=== PATIENT | male | born 1945 | race Caucasian/White ===

== ENCOUNTER 2017-03-28 15:42 | Inpatient (IN) | payer BC, MEDICARE ==
[2017-03-28] MEDS ORDERED: Pantoprazole 40 MG VIAL ONE (16:09)
[2017-03-28] MEDS ORDERED: Morphine 2 MG/ML SYRINGE ONE (16:09)
[2017-03-28] MEDS ORDERED: Ondansetron HCl/PF 4 MG/2 ML Vial ONE (16:09)
[2017-03-28 16:49] LABS: #Eosinphils 0.1 thou/uL (0.0-0.7); #Lymphocytes 0.7 thou/uL (1.20-3.40); #Monocytes 0.8 thou/uL (0.11-0.59); #Neutrophils 5.8 thou/uL (1.40-6.50); %Eosinophils 1.4 % (0.0-10.0); %Lymphocytes 9.7 % (21.0-51.0); %Monocytes 10.2 % (0.0-10.0); Hematocrit 38.6 % (42.0-52.0); Mean Platelet Volume 9.8 fL (7.4-10.4); Red Blood Cell (RBC) Count 4.58 mill/uL (4.70-6.10); White Blood Cell (WBC) Count 7.4 thou/uL (4.8-10.8)
--- NOTE | 2017-03-28 17:08 | RAD ---
SINGLE VIEW OF THE CHEST: COMPARISON: 02/13/17. HISTORY: Nausea and vomiting. FINDINGS: A single view of the chest shows an enlarged cardiomediastinal silhouette. The patient is status po st sternotomy. There is no evidence of consolidation, mass, or pleural effusion. IMPRESSION: Cardiomegaly without evidence of acute cardiopulmonary disease. POS: [facility]
[2017-03-28 17:28] LABS: ALT (SGPT) 11 U/L (8-55); AST (SGOT) 13 U/L (5-34); Alkaline Phosphatase 71 U/L (40-150); Anion Gap 18 mmol/L (10-20); BUN (Urea Nitrogen) 13 mg/dL (8.4-25.7); Bilirubin, Total 0.8 mg/dL (0.2-1.2); CK (CPK) 115 U/L (30-200); Calc. Creatinine Clearance 0 mL/min (70-130); Calcium 8.4 mg/dL (7.8-10.44); Carbon Dioxide 23 mmol/L (23-31); Chloride 101 mmol/L (98-107); Estimated GFR-MDRD 59; Globulin 2.6 g/dL (2.4-3.5); Lipase 26 U/L (8-78); Protein, Total 6.2 g/dL (5.8-8.1)
[2017-03-28 17:30] LABS: Troponin I 0.034 ng/mL (< 0.028)
[2017-03-28] MEDS ORDERED: Nitroglycerin 2% Ointment 1 INCH/1 GM Packet ONE (17:58)
[2017-03-28] MEDS ORDERED: Acetaminophen 325 MG TAB ONE (18:42)
[2017-03-28 19:29] LABS: Bilirubin Large (Negative); Blood, Urine Trace (Negative); Glucose, Urine (Dipstick) Negative (Negative); Ketone, Urine 40 mg/dL (Negative); Nitrite Positive (Negative); Protein, Urine (Dipstick) 100 mg/dL (Neg-Trace)
[2017-03-28 19:31] LABS: Bacteria/HPF 4+ HPF (None Seen); Squamous Epithelial 0-3 HPF (0-3)
[2017-03-28 19:40] LABS: Hyaline Casts/LPF NONE SEEN LPF (0-3 Hyaline)
[2017-03-28] MEDS ORDERED: Dextrose 5% in Water 1,000 ML IV PRN (20:13)
[2017-03-28] MEDS ORDERED: Mometasone/Formoterol 120 PUFF INHALER INH PRN (20:13)
[2017-03-28] MEDS ORDERED: Calcium Carbonate 500 MG ChewTAB PO PRN (20:13)
[2017-03-28] MEDS ORDERED: Dextrose 50% Abboject 50 ML SYRINGE SLOW IVP PRN (20:13)
[2017-03-28] MEDS ORDERED: Bisacodyl 10 MG SUPP PR PRN (20:13)
[2017-03-28 20:15] LABS: Troponin I 0.054 ng/mL (< 0.028)
[2017-03-28 20:58] LABS: Digoxin 0.35 ng/mL (0.8-2.0)
[2017-03-28] MEDS: Sodium Chloride 0.9% 1,000 ML IV SCH (21:30)
[2017-03-28] MEDS: Famotidine/PF 20 mg/2ml Vial SLOW IVP SCH (21:32)
[2017-03-28] MEDS: Atorvastatin Calcium 10 MG TAB PO SCH (21:59)
--- NOTE | 2017-03-28 22:28 | ULT ---
GALLBLADDER ULTRASOUND: 03/28/17 HISTORY: Abdominal pain, nausea. FINDINGS: The liver demonstrates increased echogenicity consistent with fatty infiltration. No focal mass or i ntrahepatic ductal dilatation is seen. The common duct measures 3 mm in diameter. The pancreas is pa rtially visualized with a prominent pancreatic duct measuring 2 mm. No gallstones, gallbladder wall thickening or pericholecystic fluid is seen. Multiple nonshadowing mobile echogenic foci arising fro m the gallbladder wall are noted consistent with polyps, the largest measuring 7 mm. The right kidne y demonstrates no evidence of hydronephrosis. There is a 2 cm cyst arising from the right kidney. No free fluid is seen in Isaac's pouch. IMPRESSION: 1. Fatty liver. 2. No evidence of cholelithiasis. 3. Gallbladder polyps. 4. Prominent pancreatic duct. 5. Right renal cyst. POS: [facility]
[2017-03-28 23:17] LABS: Troponin I 0.051 ng/mL (< 0.028)
[2017-03-29 05:15] LABS: #Eosinphils 0.2 thou/uL (0.0-0.7); #Lymphocytes 0.9 thou/uL (1.20-3.40); #Monocytes 0.8 thou/uL (0.11-0.59); #Neutrophils 4.3 thou/uL (1.40-6.50); %Basophils 0.4 % (0.0-1.0); %Eosinophils 2.9 % (0.0-10.0); %Lymphocytes 13.8 % (21.0-51.0); Hematocrit 36.2 % (42.0-52.0); Mean Platelet Volume 9.6 fL (7.4-10.4); Red Blood Cell (RBC) Count 4.23 mill/uL (4.70-6.10); White Blood Cell (WBC) Count 6.2 thou/uL (4.8-10.8)
[2017-03-29 05:27] LABS: ALT (SGPT) 11 U/L (8-55); AST (SGOT) 12 U/L (5-34); Alkaline Phosphatase 55 U/L (40-150); Anion Gap 16 mmol/L (10-20); BUN (Urea Nitrogen) 11 mg/dL (8.4-25.7); Bilirubin, Total 0.6 mg/dL (0.2-1.2); Calc. Creatinine Clearance 84 mL/min (70-130); Calcium 7.8 mg/dL (7.8-10.44); Carbon Dioxide 22 mmol/L (23-31); Chloride 106 mmol/L (98-107); Estimated GFR-MDRD 82; Globulin 2.5 g/dL (2.4-3.5); Protein, Total 5.4 g/dL (5.8-8.1)
--- NOTE | 2017-03-29 06:17 | HP ---
PRIMARY CARE PHYSICIAN: Elizabeth Medina M.D. FOOD SAFETY FIELD SPECIALIST: Dr. Bliss. CHIEF COMPLAINT: Nausea, vomiting. HISTORY OF PRESENT ILLNESS: This is a 71-year-old pleasant gentleman who underwent recent coronary artery bypass graft and was discharged from our hospital on the 02/08/2017, who comes in with 1 week history of nausea and vomiting. The patient said he had few episodes of diarrhea as well, but in t he beginning of the week about 5 or 6 days back when the nausea and vomiting started, but since he h as not been able to keep food down. The diarrhea has resolved. The patient says that he was in [place] some people who had similar symptoms. He never complained of any abdominal pain. He had so me subjective fever, no chills. He came into the hospital, he went to his regular doctor on Saturday who gave him oral anti-nausea medication, which did not work and hence he comes into the hospital t [place] because he feels dehydrated, weak, and still has the nausea, vomiting. The patient, on emergen cy room, had T-wave inversions in V1-V3 and mildly elevated troponin 0.034. Dr. Hackett was called by the ER by the ER physician who said that we could trend troponins and he would follow up with him in the morning. Otherwise, he does not have any chest pains or any shortness of breath right now. PAST MEDICAL HISTORY: Significant for diabetes, hyperlipidemia, hypertension, asthma, coronary wallace ry disease status post CABG. ALLERGIES: EGG. SOCIAL HISTORY: Occasional alcohol use, no smoking, no recreational drugs. SURGERIES: Bladder surgery in the past and CABG. FAMILY HISTORY: Negative for diabetes and hypertension. MEDICATIONS: Include amiodarone, metformin, some potassium, Lasix, digoxin, doxazosin, lisinopril, theophylline, aspirin, and Lantus. REVIEW OF SYSTEMS: Significant for nausea, vomiting, subjective fever, some diarrhea initially and which is resolved. Otherwise, no fever, no chills, no headache, no appetite, no hearing loss, and n o latencies. No cough, no chest pain, no shortness breath, no dysuria, no polyuria, no memory or mo od changes. No neck pain. PHYSICAL EXAMINATION: VITAL SIGNS: The patient's blood pressure is 153/87, temperature is 100.8, respirations 16, breathi ng comfortably on room air. GENERAL: The patient is lying in bed, in no apparent distress right now. HEENT: Atraumatic and normocephalic. Pupils equally round, react to light. Extraocular movements intact. Mucous membranes moist. NECK: Supple. No JVD. CHEST: Breath sounds heard. No rales or rhonchi. HEART: S1, S2 normal. No murmurs or gallops. ABDOMEN: Soft, obese, bowel sounds present, nontender. EXTREMITIES: No cyanosis, clubbing or edema. Distal pulses present. NEUROLOGIC: Alert, awake, oriented. No cranial deficits. No sensorimotor deficits. LABORATORY DATA: EKG showed some T-wave changes in V1-V3. Troponin is 0.034, potassium is 3.9, cre atinine is 1.9. LFTs normal. WBC count is 7.4, hemoglobin is 12, and lipase is 26. ASSESSMENT AND PLAN: 1. Nausea, vomiting, some on and off diarrhea, possibly secondary to gastroenteritis. We will symp tomatically treat the patient with nausea, vomiting, and given medications for fever. The patient i s also taking digoxin, we will do digoxin level to see if toxicity component involved. 2. Dehydration secondary to poor oral intake. We will gently hydrate the patient and monitor labs. 3. Elevated troponin with some EKG changes. Dr. Hackett has been informed, he just wants to trend tro ponins and he will follow up with the patient in the morning. 4. Coronary artery disease status post coronary artery bypass graft, stable. 5. Diabetes, on insulin sliding scale. 6. Hypertension on p.r.n. medications and continue Coreg. 7. Hyperlipidemia, asthma. We will continue home medications and p.r.n. nebs. We will continue mo st of the home medications like amiodarone, digoxin and we will monitor labs and we will work with lilian watkins for further caring for the patient.
[2017-03-29] MEDS: Carvedilol 6.25 MG TAB PO SCH ×2 (08:56→17:41)
[2017-03-29] MEDS: Digoxin 0.125 MG TAB PO SCH (08:57)
[2017-03-29] MEDS: Aspirin 81 mg Enteric Coated Tablet PO SCH (08:57)
[2017-03-29] MEDS: Acetaminophen 325 MG TAB PO PRN (08:58)
[2017-03-29] MEDS: Famotidine/PF 20 mg/2ml Vial SLOW IVP SCH ×2 (08:58→21:46)
[2017-03-29] MEDS: cefTRIAXone\\ROCEPHIN 1 GM, Admixture Fee 1 EACH in Sodium Chloride 0.9% 100 ML IVPB SCH (11:54)
[2017-03-29] MEDS: Sodium Chloride 0.9% 1,000 ML IV SCH (11:56)
--- NOTE | 2017-03-29 13:19 | PDOC.PN ---
- Subjective Encounter Start Date: 03/29/17 Encounter Start Time: 13:17 symptoms resolved has dysuria no n/v no f/c - Objective MAR Reviewed: Yes Vital Signs & Weight: Vital Signs (12 hours) Temp Pulse Resp BP BP Pulse Ox 03/29/17 11:24 98.7 F 56 L 16 146/67 H 95 03/29/17 08:57 73 03/29/17 08:56 166/93 H 03/29/17 08:06 98.2 F 166/93 H 03/29/17 08:00 98.2 F 73 18 03/29/17 07:50 100.1 F H 73 16 180/81 H 93 L 03/29/17 03:56 98.9 F 76 16 176/76 H 93 L 03/29/17 03:46 76 18 93 L Weight Weight 175 lb 8 oz I&O: 03/28/17 03/29/17 03/30/17 06:59 06:59 06:59 Intake Total 1337 Output Total 300 Balance 1037 Result Diagrams: 03/29/17 04:24 03/29/17 04:24 Additional Labs: Accuchecks 03/29/17 03/28/17 11:01 20:20 POC Glucose 94 83 Phys Exam - Physical Examination Constitutional: NAD HEENT: PERRLA Neck: no JVD Respiratory: no rales Cardiovascular: no significant murmur Gastrointestinal: non-tender Musculoskeletal: pulses present Neurological: normal sensation Dx/Plan (1) Dysuria Code(s): R30.0 - DYSURIA Status: Acute (2) Nausea & vomiting Code(s): R11.2 - NAUSEA WITH VOMITING, UNSPECIFIED Status: Acute (3) CAD (coronary artery disease) Code(s): I25.10 - ATHSCL HEART DISEASE OF [place] CORONARY ARTERY W/O ANG PCTRS Status: Acute (4) DM2 (diabetes mellitus, type 2) Status: Chronic (5) HLD (hyperlipidemia) Code(s): E78.5 - HYPERLIPIDEMIA, UNSPECIFIED Status: Chronic (6) HTN (hypertension) Code(s): I10 - ESSENTIAL (PRIMARY) HYPERTENSION Status: Chronic - Plan * f/u ur cul * rocephin * s/p recent cabg with indeterminate trops- f/u card plan
[2017-03-29] MEDS: Ondansetron HCl/PF 4 MG/2 ML Vial IVP PRN (19:30)
[2017-03-29] MEDS: hydrALAZINE 20 MG/ML VIAL SLOW IVP PRN (20:10)
--- NOTE | 2017-03-29 20:10 | PDOC.EVN ---
Event Note - Event Note Event Note: pt had e/o where he slumped back into bed and felt weak when he tried to go to the bathroom lasted for 2 min linda valle was called evaluated pt his sbp is 197 other neurologically intact aaa* 3 physical exam was wnl will add merrem do blood culture ct head trop times 2 hydralazine
[2017-03-29 20:41] LABS: Troponin I 0.057 ng/mL (< 0.028)
[2017-03-29] MEDS: Atorvastatin Calcium 10 MG TAB PO SCH (21:45)
[2017-03-29] MEDS: Meropenem 1 GM, Admixture Fee 1 EACH in Sodium Chloride 0.9% 100 ML IVPB SCH (21:46)
--- NOTE | 2017-03-29 22:20 | CT ---
CT OF BRAIN PERFORMED WITHOUT CONTRAST ENHANCEMENT: 03/29/17 HISTORY: Left sided weakness. There is mild ventricular and sulcal prominence with decreased attenuation of periventricular white matter consistent with chronic white matter change. No signs of intracerebral hemorrhage or extra-ax ial fluid collections. No mass lesion or mass effect. A left frontal bone lesion is felt to most lik angie be benign, possibly a hemangioma of the bone. Less likely representing a solitary metastasis. IMPRESSION: No acute intracranial abnormalities. POS: [facility]
--- NOTE | 2017-03-29 23:11 | CON ---
DATE OF CONSULTATION: 03/29/2017 PRIMARY CARE PHYSICIAN: Elizabeth Medina M.D. PRIMARY CARE LAND RECLAMATION SPECIALIST: Ameena Bliss M.D. REFERRING PHYSICIAN: Enrique Buck MD REASON FOR CARDIOLOGY CONSULTATION: Elevated troponin level. HISTORY OF PRESENT ILLNESS: Mr. De La Paz is a 71-year-old male with a significant history of coronary artery disease status post CABG x3 on 2016, diabetes, and hypertension. Patient presented to the [facility] Emergency Department due to nausea and vomiting for 4 days. He received some medication for nausea from the primary care doctor. However, his condition did not improve with the medication. The patient went back to his primary care doctor yesterday, on 03/28, as a followup and was instructed to present to the ER for further evaluation and treatment. At the Emergency Department, the patient was told that he was really dehydrated and he received 2 litters of normal saline. He was also found to have a urinary tract infection. Patient denied any chest pain, dizziness, lightheadedness, shortness of breath or any other cardiac complaints during the episode and prior to this. He was weak from his previous cardiac surgery; however, he had been to cardiac rehab without any difficulties. Today, during the initial cardiology assessment, the patient denied shortness of breath, dizziness, lightheadedness, discomfort or tightness in his chest with nausea, vomiting or numbness in the left arm or any other Cardiology complaints. At this moment, he can hold fluids well. He has not tried any solid food yet. He took a shower this morning without any difficulties. The patient underwent CABG x3 with the WHITTEN to LAD, SUAD to diagonal and RSV to OM with MAZE procedure on 02/01/[address] Boggs. He had a history of postop atrial fibrillation which he converted back to sinus rhythm with medical treatment. The patient's EKG today showed sinus rhythm with heart rate in 60s and 70s. PAST MEDICAL HISTORY: 1. Coronary artery disease. 2. Hypertension. 3. Dyslipidemia. 4. Diabetes type 2. 5. Hypothyroidism. 6. COPD/asthma. PAST SURGICAL HISTORY: 1. CABG x3 with left arterial appendage ligation and a MAZE procedure in 2016. 2. Pelvis fracture repair in 1967. FAMILY HISTORY: He had a significant cancer history in his paternal side; and diabetes and high blood pressure in his maternal side. SOCIAL HISTORY: He is . He lives by himself. His sister lives close by. He has one daughter. He denies any tobacco or illicit drug abuse. He enjoys like 1 glass of wine or beer at the holiday season. ALLERGIES: To EGG. HOME MEDICATIONS: 1. Advair. 2. Lantus per insulin protocol. 3. Atorvastatin 10 mg once a day. 4. Digoxin 0.125 mg once a day. 5. Aspirin 81 mg once a day. 6. Tirosint 25 mcg once a day. 7. Amiodarone 200 mg once a day. 8. Hydrocodone/acetominophen 5/325 mg 2 tablets every 6 hours as needed. 9. Tramadol 50 mg one tablet every 6 hours as needed. 10. Metformin ER 750 mg 1 tablet twice a day. 11. Carvedilol 6.25 mg 1 tablet twice a day. 12. Potassium chloride ER 20 mEq 1 tablet once a day. 13. Lisinopril 20 mg 1 tablet once a day. 14. Doxazosin 8 mg once a day. 15. Furosemide 20 mg once a day. 16. Theophylline ER 300 mg every 12 hours. He is taking some medication for nausea that the patient cannot remember and there are no medication indicated for his nausea in his home medication record and his chart at this moment. REVIEW OF SYSTEMS: The following complete review of systems was negative, unless otherwise mentioned in the HPI or below. Constitutional: Weight loss or gain, sense of well being, ability to conduct usual activities, exercise intolerance. Skin: Rash, itching, change in hair growth or loss, nail change. Eyes: Vision change, double vision, tearing, blind spots or pain. HEENT: Headache, fatigue or dizziness, lightheadedness, nose bleeding, cold, obstruction, discharge, dental difficulties, gingival bleeding, denture, neck stiffness, pain, tenderness in thyroid or other areas. Cardiovascular: Precordial pain, substernal distress, palpitations, syncope, dyspnea on exertion , orthopnea, nocturnal dyspnea, edema, cyanosis, psychosis, claudication. Respiratory: Pain, shortness of breath, wheezing, stridor, cough, hemoptysis. Gastrointestinal: Abdominal pain, heartburn, jaundice, constipation or diarrhea , abnormal stool or blood in the stool. Genitourinary: Urgency, frequency, dysuria, nocturia, hematuria, polyuria or oliguria, unusual coloring of urine. Musculoskeletal: Pain, swelling, redness or heat of muscle or joint, limitation of motion, muscular weakness, atrophy or cramps. Neurologic: Seizure, convulsion, paralysis, tremor, incoordination, difficulty with memory or speech. Psychiatric: Emotional problem, anxiety, depression, previous psychiatric care, unusual perception or hallucination. PHYSICAL EXAMINATION: VITAL SIGNS: Blood pressure 166/93, 97 heart rate, respiratory rate 18, O2 sat 93% with room air, temperature 98.2. GENERAL: Well-developed, well-nourished without any acute distress. HEAD: Normocephalic, atraumatic. EYES: He wears glasses. Extraocular muscle movement intact. ENT: Oral nasal mucosa moist without lesion. NECK: No JVD. Neck is supple with normal range of motion. LUNGS: Clear to auscultation bilaterally. No wheezing, rales or rhonchi noted. CARDIOVASCULAR: Regular rate and rhythm, normal S1, S2. There are no S3 or S4. No significant murmur, hives, thrill, bruits or rubs noted. There are 2+ pulses in bilateral dorsal pedis, posterior tibial, and popliteal. Carotid pulse present without bruit or thrill. No edema in his bilateral lower extremities. ABDOMEN: Soft and nontender or mass to palpate. Nondistended. Bowel sounds are present. MUSCULOSKELETAL: Able to move all extremities. SKIN: Warm and dry. No skin rash, lesion or bruise noted. NEUROLOGIC: Alert, oriented x4, awake, normal affect, nonfocal. PSYCHIATRIC: Mood, affect normal. EKG: A 12-lead EKG at the ER revealed sinus rhythm with heart rate 73 with right bundle sj block which was not different from patient's EKG in February in Dr. Cross's office. LABORATORY DATA: WBC 6.2, hemoglobin 11.7, hematocrit 36.2, platelet 125. Chemistry: Sodium 140, potassium 3.5, BUN 11, creatinine 0.91, glucose 86, AST 12, ALT 11, CK-MB 1.3 and troponin 0.034, 0.054, and 0.051 and digoxin level was 0.35. UA reveals positive urine protein, urine ketones and nitrate, WBC and urine bacteria. Gallbladder ultrasound reveals fatty liver, no evidence of cholelithiasis and gallbladder polyp, right renal cyst. Chest x-ray revealed cardiomegaly without evidence of acute cardiopulmonary disease. Echocardiogram in 10/2016 shows EF of 40-45% and mild enlarged right atrium's size and moderate mitral valve regurgitation, mild aortic regurgitation, mild tricuspid regurgitation and mild pulmonary regurgitation and akinetic segment. ASSESSMENT AND PLAN: 1. Indeterminant troponin level. This is possible from a history of nausea and vomiting for 4 days. At this moment, the patient is symptomatic and due to history of a coronary artery bypass grafting in 01/2017, he does not require any further cardiology related studies. 2. History of nausea and vomiting. His condition is stable at this moment and he can hold his fluid very well. We like to continue to monitor and I like to order some advance diet for this patient. 3. Urinary tract infection. Patient's urinalysis revealed patient has a urinary tract infection. He is on Rocephin IV at this moment, which is managed by his primary care doctor. 4. Coronary artery disease with status post coronary artery bypass graft x3 with ligation and maze procedure in 02/01/2017. Patient's condition is stable. We like to continue to monitor. 5. Hypertension. Patient's vital signs are stable with current medication. 6. History of atrial fibrillation. The patient remained in sinus rhythm at this moment with amiodarone, digoxin and carvedilol. We like to continue to monitor on the telemetry. 7. Diabetes type 2. He is on a.c. and at bedtime blood sugar check and once patient tolerates oral intake, patient should be resumed back on some metformin. 8. Dyslipidemia. Patient is on the statin medication. 9. Chronic obstructive pulmonary disease/asthma. At this moment, the patient' s condition is stable. We like to continue to monitor. Thank you very much for allowing Cardiology Service to participate in care of this patient. We will follow along with the patient care team and make further recommendations as appropriate. GUILLERMO
[2017-03-30 02:15] LABS: Troponin I 0.099 ng/mL (< 0.028)
[2017-03-30] MEDS ORDERED: Magnesium 2 GM/NS 0.9% 50 ML 2 GM in Premix Bag 1 BAG IVPB SCH (03:45)
[2017-03-30 03:46] LABS: #Eosinphils 0.1 thou/uL (0.0-0.7); #Lymphocytes 0.7 thou/uL (1.20-3.40); #Monocytes 0.8 thou/uL (0.11-0.59); #Neutrophils 5.6 thou/uL (1.40-6.50); %Basophils 0.4 % (0.0-1.0); %Eosinophils 0.7 % (0.0-10.0); %Lymphocytes 10.1 % (21.0-51.0); %Monocytes 11.2 % (0.0-10.0); Hematocrit 33.2 % (42.0-52.0); Mean Platelet Volume 9.3 fL (7.4-10.4); Red Blood Cell (RBC) Count 3.97 mill/uL (4.70-6.10); White Blood Cell (WBC) Count 7.2 thou/uL (4.8-10.8)
--- NOTE | 2017-03-30 03:57 | PDOC.EVN ---
Event Note - Event Note Event Note: Nursing called twice.first for elevated D-dimer. Pt had a Cod eGreen earlier and labs were ordered. CTA ordered for elevated D-Dimer.results pending. Called later again for pt feeling lightheaded and not feeling well. Monitor shows NSVt and then torsades twice. Stat MgSO4 IV ordered w mag level check.Pt seen and examined at bedside after being transferred to [facility].Chart reviewed in detail still feels dizzy,w Mild SOB.no chest pain/discpmfort.AAAX3. CTA B/L. tachycardic and irregular. Will stop Amiodarone for now and reconsult cardio in am. Monitor in IMCU.MagSO4 infusing now.Pt stable hemodynamically. will follow am labs.
[2017-03-30 04:00] LABS: ALT (SGPT) 11 U/L (8-55); AST (SGOT) 11 U/L (5-34); Alkaline Phosphatase 56 U/L (40-150); Anion Gap 10 mmol/L (10-20); BUN (Urea Nitrogen) 12 mg/dL (8.4-25.7); Bilirubin, Total 0.5 mg/dL (0.2-1.2); Calc. Creatinine Clearance 89 mL/min (70-130); Calcium 7.7 mg/dL (7.8-10.44); Carbon Dioxide 25 mmol/L (23-31); Chloride 105 mmol/L (98-107); Estimated GFR-MDRD 88; Globulin 2.3 g/dL (2.4-3.5); Magnesium 1.4 mg/dL (1.6-2.6); Protein, Total 5.1 g/dL (5.8-8.1)
[2017-03-30] MEDS: Meropenem 1 GM, Admixture Fee 1 EACH in Sodium Chloride 0.9% 100 ML IVPB SCH ×3 (06:03→21:03)
--- NOTE | 2017-03-30 09:06 | ADD-CON ---
ADDENDUM DATE OF CONSULTATION: 03/29/2017 Please refer to the notes already dictated by the nurse practitioner, Johanna. I have discussed this patient with her. I reviewed her records and I would agree with the assessment and plan on this 71- year-old gentleman. We were asked to see him due to elevated cardiac enzymes. A 71-year-old gentle man underwent coronary bypass surgery for 3-vessel coronary artery disease approximately a month ago , he had been doing relatively well until he developed nausea and vomiting. He had been around [facility] desiree who also had similar symptoms. He presented to the emergency room, somewhat dehydrated and had f luid replacement, and now feeling better. He denied any fever. He denied any chest pain and had no other significant cardiac complaints. His cardiac enzymes are indeterminate. It would not be vince cative of myocardial infarction certainly may be elevated with his ongoing nausea, vomiting, and rec ent bypass surgery. At this time, it does not appear that there is any significant cardiac problem. Would continue to monitor the patient as you are, and most likely he can be discharged to home [place] [facility]. His examination is as above. He does have a well-healed midline surgical incision after med jonathan sternotomy. His chest was clear to auscultation. Cardiovascular exam reveals a regular rate an d rhythm, and he has no significant lower extremity edema. He is alert and oriented x3. IMPRESSION: A 71-year-old patient with recent bypass surgery, who presented with nausea and vomitin g and had slight elevation of cardiac enzymes with the troponin I. The MB was normal. This is not indicative of myocardial infarction and also does not likely indicate any evidence of ischemia, but associated with the nausea and vomiting after recent bypass surgery. Will continue to follow the sergio monroe and monitor him as you are. As for the other assessment and plan, please refer to the notes already dictated by the nurse practitioner.
--- NOTE | 2017-03-30 09:27 | PDOC.PN ---
- Subjective Encounter Start Date: 03/30/17 Encounter Start Time: 09:26 Subjective: COHERENT AND FEELS MORE STABLE, CONTINUED NAUSEA - Objective MAR Reviewed: Yes Vital Signs & Weight: Vital Signs (12 hours) Temp Pulse Resp BP BP Pulse Ox 03/30/17 08:27 71 18 100 03/30/17 07:08 97.9 F 80 20 150/77 H 100 03/30/17 03:40 98.2 F 58 L 18 145/53 H 100 03/30/17 03:00 98.4 F 54 L 20 124/60 95 03/30/17 00:38 54 L 22 H 95 03/29/17 23:22 98.3 F 66 20 161/74 H 95 03/29/17 21:45 98.4 F 84 18 Weight Admit Weight 172 lb 8 oz Weight 170 lb 3.2 oz I&O: 03/29/17 03/30/17 03/31/17 06:59 06:59 06:59 Intake Total 1337 322 Output Total 300 400 Balance 1037 -78 Result Diagrams: 03/30/17 03:31 03/30/17 03:31 Additional Labs: Accuchecks 03/30/17 03/29/17 03/29/17 06:27 20:01 17:00 POC Glucose 121 H 183 H 112 H 03/29/17 11:01 POC Glucose 94 Phys Exam - Physical Examination Constitutional: NAD HEENT: PERRLA, moist MMs, sclera anicteric Neck: supple, full ROM Respiratory: no wheezing, clear to auscultation bilateral Cardiovascular: RRR Gastrointestinal: soft, non-tender Musculoskeletal: no edema Neurological: non-focal, moves all 4 limbs Psychiatric: normal affect, A&O x 3 Skin: no rash Dx/Plan (1) CAD (coronary artery disease) Code(s): I25.10 - ATHSCL HEART DISEASE OF [place] CORONARY ARTERY W/O ANG PCTRS Status: Chronic (2) Dysuria Code(s): R30.0 - DYSURIA Status: Acute (3) Nausea & vomiting Code(s): R11.2 - NAUSEA WITH VOMITING, UNSPECIFIED Status: Acute (4) Demand ischemia Code(s): I24.8 - OTHER FORMS OF ACUTE ISCHEMIC HEART DISEASE Status: Acute Comment: likley due to A-fib w RVR (5) Asthma Code(s): J45.909 - UNSPECIFIED ASTHMA, UNCOMPLICATED Status: Chronic (6) DM2 (diabetes mellitus, type 2) Status: Chronic (7) HTN (hypertension) Code(s): I10 - ESSENTIAL (PRIMARY) HYPERTENSION Status: Chronic - Plan cont current plan of care, continue antibiotics, PT/OT PT IMPROVED AFTER MGSO4 INFUSION, TORSADES RESOLVED, DEFER TO CARDS -: POSSIBLE STEP DOWN TODAY OR TOMORROW. * .
[2017-03-30] MEDS: Digoxin 0.125 MG TAB PO SCH (09:31)
[2017-03-30] MEDS: Carvedilol 6.25 MG TAB PO SCH ×2 (09:31→16:55)
[2017-03-30] MEDS: Ondansetron HCl/PF 4 MG/2 ML Vial IVP PRN (09:31)
[2017-03-30] MEDS: Levothyroxine Sodium 25 MCG TAB PO SCH (09:31)
[2017-03-30] MEDS: Famotidine/PF 20 mg/2ml Vial SLOW IVP SCH ×2 (09:31→21:03)
[2017-03-30] MEDS: Lisinopril 20 MG TAB PO SCH (09:31)
[2017-03-30] MEDS: Aspirin 81 mg Enteric Coated Tablet PO SCH (09:32)
--- NOTE | 2017-03-30 10:48 | CT ---
PRELIMINARY REPORT/[facility]/EMERGENCY AFTER HOURS PROCEDURE: EXAM: CT Angiography Chest With Intravenous Contrast CLINICAL HISTORY: 71 years old, male; Shortness of breath; Elevated d-dimer TECHNIQUE: Axial computed tomographic angiography images of the chest with intravenous contrast using pulmonary embolism protocol. MIP reconstructed images were created and reviewed. Coronal reformatted images were created and reviewed. Oblique reformatted images were created and reviewed. COMPARISON: No relevant prior studies available. FINDINGS: Pulmonary arteries: No evidence of pulmonary embolism. Aorta: Normal caliber thoracic aorta without dissection or aneurysm. Lungs: Faint patches of "ground glass" infiltrate within each lung. Scattered small patches of infil trate within the right lung and anterior left lower lobe. Areas of consolidation and/or atelectasis within each posterior lung base and adjacent to the right heart border. Pleural space: Small bilateral pleural fluid collections. No pneumothorax. Heart: Cardiomegaly. No pericardial effusion. No evidence of RV dysfunction. Bones/joints: Old fracture of the left second anterolateral rib. Old fracture of the right ninth pos terolateral rib Prior median sternotomy. No dislocation. Soft tissues: Unremarkable. Lymph nodes: No pathologically enlarged lymph nodes. Spleen: Prominent spleen. Adrenals: Adrenal glands are incompletely imaged. Intraperitoneal space: Small amount of free fluid anterior to the liver. IMPRESSION: 1. No evidence of pulmonary embolism. 2. Faint patches of "ground glass" infiltrate within each lung. 3. Scattered small patches of infiltrate within the right lung and anterior left lower lobe. 4. Areas of consolidation and/or atelectasis within each posterior lung base and adjacent to the rig ht heart border. 5. Small bilateral pleural fluid collections. Thank you for allowing us to participate in the care of your patient. Dictated and Authenticated by: Neel Ugalde MD 03/30/2017 3:56 AM Central Time ([place] \\T\\ Frank) FINAL REPORT CTA CHEST WITH CONTRAST: HISTORY: Elevated D-dimer. Shortness of breath. Pulmonary embolism. COMPARISON: None. FINDINGS: CT angiogram of chest performed after intravenous administration of contrast. Three-D rendering was provided. Findings and impression are concordant with the preliminary report. No pulmonary emboli sm. Moderate-sized pleural effusions as well as moderate pulmonary edema. CODE: CARL POS: [facility]
[2017-03-30] MEDS ORDERED: Promethazine HCl 25 MG/ML VIAL SLOW IVP PRN (11:17)
[2017-03-30] MEDS: hydrALAZINE 20 MG/ML VIAL SLOW IVP PRN (12:13)
--- NOTE | 2017-03-30 12:14 | PDOC.CTH ---
Cardiology Progress Note - Subjective He had several runs of polymorphic VT last night, symptomatic but about 10 seconds long the longest. His Magnesium was low and it was replaced. - Objective Vital Signs Temp Pulse Resp BP BP Pulse Ox 03/30/17 11:18 99.4 F 83 20 172/69 H 100 03/30/17 09:31 91 124/60 03/30/17 08:27 71 18 100 03/30/17 07:08 97.9 F 80 20 150/77 H 100 03/30/17 03:40 98.2 F 58 L 18 145/53 H 100 03/30/17 03:00 98.4 F 54 L 20 124/60 95 03/30/17 00:38 54 L 22 H 95 Admit Weight 172 lb 8 oz Weight 170 lb 3.2 oz 03/29/17 03/30/17 03/31/17 06:59 06:59 06:59 Intake Total 1337 322 Output Total 300 400 Balance 1037 -78 - Physical Examination General/Neuro: alert & oriented x3, NAD Neck: no JVD present Lungs: unlabored respirations Heart: other: (irreg) Abdomen: NT/ND Extremities: + edema B (trace) - Telemetry Telemetry Rhythm: Afib, Poly VT - Labs Result Diagrams: 03/30/17 03:31 03/30/17 03:31 Troponin/CKMB CK-MB (CK-2) 1.3 ng/mL (0-6.6) 03/28/17 16:25 Troponin I 0.099 ng/mL (< 0.028) H 03/30/17 01:13 - Assessment/Plan 1. Polymorphic VT. 2. Hypomagnesemia and hypokalemia 3. Indeterminate troponins. 4. Nausea and vomiting. Only one dose of Zofran given so far. 5. Normal QT on ECG this morning, better than admission EKG. PLAN: - Electrolyte imbalance likely due to nausea and vomiting. - Will stop zofran - Will use phenergan for nausea as it is less likely to cause QT prolongation. - Replace magnesium to above 2.0, will give 4 g. - Replace K after mag. - Will stop digoxin and amiodarone. - May need C before discharge. Will discuss with Dr. Bliss next week. - [facility] before discharge.
[2017-03-30] MEDS ORDERED: Magnesium Sulfate 4 GM in Sodium Chloride 0.9% 250 ML 250 ML IVPB SCH (12:15)
[2017-03-30] MEDS ORDERED: Promethazine HCl 12.5 MG in Sodium Chloride 0.9% 50 ML IVPB PRN (12:18)
[2017-03-30 12:24] LABS: Magnesium 2.1 mg/dL (1.6-2.6)
[2017-03-30] MEDS ORDERED: Furosemide 40 MG/4 ML VIAL SLOW IVP SCH (12:30)
[2017-03-30 12:56] LABS: Chloride 104 mmol/L (98-107)
[2017-03-30 12:57] LABS: Calcium 7.9 mg/dL (7.8-10.44)
[2017-03-30 12:59] LABS: Carbon Dioxide 21 mmol/L (23-31)
[2017-03-30 13:01] LABS: BUN (Urea Nitrogen) 8 mg/dL (8.4-25.7); Calc. Creatinine Clearance 90 mL/min (70-130); Estimated GFR-MDRD Greater than 90
[2017-03-30 13:04] LABS: Anion Gap 13 mmol/L (10-20)
[2017-03-30] MEDS: cefTRIAXone\\ROCEPHIN 1 GM, Admixture Fee 1 EACH in Sodium Chloride 0.9% 100 ML IVPB SCH (13:31)
[2017-03-30] MEDS ORDERED: Iopamidol 370 76% 100 ML VIAL ONE (16:04)
[2017-03-30] MEDS: Acetaminophen 325 MG TAB PO PRN (17:16)
[2017-03-30] MEDS: Atorvastatin Calcium 10 MG TAB PO SCH (21:03)
[2017-03-30] MEDS: HumaLOG 300 UNITS/3 ML VIAL SC PRN (21:14)
--- NOTE | 2017-03-30 22:25 | CON ---
DATE OF CONSULTATION: 03/30/2017 HISTORY OF PRESENT ILLNESS: This is a 71-year-old gentleman who had torsades, was transferred to [facility] MICU. He was seen by Cardiology and was given 4 grams of magnesium. Magnesium level was low. Pulmonary w as asked to see the patient as he was having difficulty breathing. The patient says he is clearly h aving difficulty breathing. He has asthma. Everytime he starts having a coughing spell, he starts having difficulty breathing. He is denying any chest pain for the time being. Patient was just recently discharged from the hospital over a year. His hospitalization was followi ng a bypass surgery. He had persistent nausea and vomiting since then with an elevated troponin. This morning, he started having difficulty breathing, though he clearly is not wheezing, no fever or chills. PAST MEDICAL HISTORY: Pertinent for apparently diabetes, hypertension, asthma. PREVIOUS SURGERIES: Bypass, CABG. SOCIAL HISTORY: No alcohol or tobacco abuse. MEDICINES: His medicine list is from home: Theophylline, metformin 750, tramadol, Zestril 20, pota ssium, Synthroid 25, insulin 17, Lasix 40, doxazosin 16, dig 0.125, Coreg 6.25 and amiodarone 200. PHYSICAL EXAMINATION: GENERAL: The patient had difficulty breathing, but sats are 100% on 2 liters, respirations 20, temp erature 99, pulse 83. CHEST: Reveals bilateral crackles, without any wheezing. CARDIAC: Normal S1 and S2. ABDOMEN: Soft. No masses. LABORATORY AND IMAGING DATA: CT chest was done, which showed pleural effusion and no PE. White cou nt 10,000, hemoglobin and hematocrit 10 and 33, platelet count 131. Electrolytes are normal. Troponin elevated at 0.099. IMPRESSION AND PLAN: Recent coronary artery bypass graft, urinary tract infection, gram negative ro ds and respiratory failure secondary to congestive heart failure. Trial on BiPAP. Neb treatments a nd steroids were initiated. We will follow while in the MICU.
[2017-03-31] MEDS: HumaLOG 300 UNITS/3 ML VIAL SC PRN ×3 (05:27→17:45)
[2017-03-31] MEDS: Meropenem 1 GM, Admixture Fee 1 EACH in Sodium Chloride 0.9% 100 ML IVPB SCH (05:28)
[2017-03-31] MEDS: Levothyroxine Sodium 25 MCG TAB PO SCH (08:05)
[2017-03-31] MEDS: Lisinopril 20 MG TAB PO SCH (08:05)
[2017-03-31] MEDS: Aspirin 81 mg Enteric Coated Tablet PO SCH (08:05)
[2017-03-31] MEDS: Carvedilol 6.25 MG TAB PO SCH ×2 (08:05→17:46)
[2017-03-31] MEDS: Famotidine/PF 20 mg/2ml Vial SLOW IVP SCH ×2 (08:06→20:52)
--- NOTE | 2017-03-31 09:32 | RAD ---
CHEST 1 VIEW: HISTORY: CHF. COMPARISON: Chest 1 view 03/28/17. FINDINGS: The heart size is enlarged. Small effusion and linear opacities right lower lobe. There is also opacity in the right upper lobe and left upper lobe. IMPRESSION: Increasing opacities throughout the upper lobes and right lower lobe concerning for multifocal infec tious process. Developing edema is also within the differential. POS: [facility]
[2017-03-31] MEDS: cefTRIAXone\\ROCEPHIN 2 GM, Admixture Fee 1 EACH in Sodium Chloride 0.9% 100 ML IVPB SCH (10:02)
--- NOTE | 2017-03-31 13:16 | PRG ---
DATE OF SERVICE: 03/31/2017 SUBJECTIVE: This morning, he is much improved. X-ray shows cardiomegaly, small bilateral pleural e ffusion. Urine showing Klebsiella. PHYSICAL EXAMINATION: VITAL SIGNS: Blood pressure 140/61, pulse 57, temperature 97, sats 99%. His I's and O's in the las t 24 hours have been 680 in and 150 out. CHEST: Minimal crackles. CARDIAC: Normal S1 and S2. No gallops. ABDOMEN: Soft. No masses. LABORATORY DATA: Electrolytes are normal. Potassium 3.4. BNP had been drawn yesterday, which was e levated. Troponin was elevated. IMPRESSION: 1. Respiratory failure, congestive heart failure. 2. History of apparently asthma, cough, improved. 3. Urinary tract infection. PLAN: Deescalate his antibiotics. Continue supportive care, PT, torsades cardiac workup in progres s.
--- NOTE | 2017-03-31 14:05 | PDOC.PN ---
- Subjective Encounter Start Date: 03/31/17 Encounter Start Time: 14:03 Subjective: felt better -: diarrhea x 3 today - Objective Vital Signs & Weight: Vital Signs (12 hours) Temp Pulse Resp BP BP Pulse Ox 03/31/17 11:32 69 140/60 99 03/31/17 10:09 62 16 98 03/31/17 08:05 146/61 H 03/31/17 07:35 97.5 F L 57 L 16 120/54 L 99 03/31/17 07:30 97.5 F L 57 L 16 99 03/31/17 06:21 56 L 16 100 03/31/17 04:00 97.4 F L 52 L 16 108/51 L 100 Weight Admit Weight 172 lb 8 oz Weight 169 lb 8 oz I&O: 03/30/17 03/31/17 04/01/17 06:59 06:59 06:59 Intake Total 322 680 600 Output Total 400 150 Balance -78 530 600 Result Diagrams: 03/30/17 03:31 03/30/17 12:00 Additional Labs: Accuchecks 03/31/17 03/31/17 03/30/17 10:45 05:27 21:10 POC Glucose 256 H 274 H 262 H 03/30/17 16:48 POC Glucose 155 H Phys Exam - Physical Examination HEENT: PERRLA, sclera anicteric, TM's clear Neck: no JVD, supple Respiratory: no wheezing Cardiovascular: RRR Gastrointestinal: soft, non-tender Musculoskeletal: no edema Neurological: non-focal, moves all 4 limbs -: easy bruisabilty Dx/Plan (1) Ventricular arrhythmia Code(s): I49.9 - CARDIAC ARRHYTHMIA, UNSPECIFIED Status: Acute (2) Diarrhea Code(s): R19.7 - DIARRHEA, UNSPECIFIED Status: Acute (3) UTI (urinary tract infection) Status: Acute (4) Nausea & vomiting Code(s): R11.2 - NAUSEA WITH VOMITING, UNSPECIFIED Status: Acute (5) CAD (coronary artery disease) Code(s): I25.10 - ATHSCL HEART DISEASE OF [place] CORONARY ARTERY W/O ANG PCTRS Status: Chronic (6) Demand ischemia Code(s): I24.8 - OTHER FORMS OF ACUTE ISCHEMIC HEART DISEASE Status: Acute Comment: likley due to A-fib w RVR (7) Asthma Code(s): J45.909 - UNSPECIFIED ASTHMA, UNCOMPLICATED Status: Chronic (8) DM2 (diabetes mellitus, type 2) Status: Chronic (9) HTN (hypertension) Code(s): I10 - ESSENTIAL (PRIMARY) HYPERTENSION Status: Chronic - Plan cont current plan of care stool for c diff -: replete potassium -: labs tomorrow -: light jenna, discussed with RN * .
[2017-03-31] MEDS ORDERED: Potassium Chloride 20 MEQ TAB PO SCH (14:15)
[2017-03-31] MEDS ORDERED: Cholestyramine/Aspartame 4 gm Packet PO SCH (14:45)
--- NOTE | 2017-03-31 16:57 | PDOC.CTH ---
Cardiology Progress Note - Subjective He is doing much better. His breathing is back to normal and hie is on room air feeling comfortable. - Objective Vital Signs Temp Pulse Resp BP BP Pulse Ox 03/31/17 15:20 97.1 F L 60 18 148/57 H 100 03/31/17 14:36 61 18 98 03/31/17 11:32 69 140/60 99 03/31/17 10:09 62 16 98 03/31/17 08:05 146/61 H 03/31/17 07:35 97.5 F L 57 L 16 120/54 L 99 03/31/17 07:30 97.5 F L 57 L 16 99 03/31/17 06:21 56 L 16 100 Admit Weight 172 lb 8 oz Weight 169 lb 8 oz 03/30/17 03/31/17 04/01/17 06:59 06:59 06:59 Intake Total 322 680 600 Output Total 400 150 Balance -78 530 600 - Physical Examination General/Neuro: alert & oriented x3, NAD Neck: no JVD present Lungs: unlabored respirations Heart: RRR Abdomen: NT/ND Extremities: other: (no edema.) - Telemetry Telemetry Rhythm: NSR - Labs Result Diagrams: 03/30/17 03:31 03/30/17 12:00 Troponin/CKMB CK-MB (CK-2) 1.3 ng/mL (0-6.6) 03/28/17 16:25 Troponin I 0.099 ng/mL (< 0.028) H 03/30/17 01:13 - Assessment/Plan 1. Polymorphic VT. 2. Hypomagnesemia and hypokalemia, improved. 3. Indeterminate troponins. 4. Nausea and vomiting. PLAN: - Electrolyte imbalance likely due to nausea and vomiting. - Continue to hold zofran - Phenergan for nausea as it is less likely to cause QT prolongation. - Replace magnesium to above 2.0 - Replace K after mag to above 4 - Continue to hold digoxin and amiodarone. - May need C before discharge. Will discuss with Dr. Bliss. - [facility] before discharge.
[2017-03-31 17:28] LABS: Anion Gap 10 mmol/L (10-20); BUN (Urea Nitrogen) 20 mg/dL (8.4-25.7); Calc. Creatinine Clearance 86 mL/min (70-130); Calcium 7.9 mg/dL (7.8-10.44); Carbon Dioxide 29 mmol/L (23-31); Chloride 102 mmol/L (98-107); Estimated GFR-MDRD 88
[2017-03-31] MEDS: Atorvastatin Calcium 10 MG TAB PO SCH (20:52)
[2017-04-01 05:32] LABS: Anion Gap 11 mmol/L (10-20); BUN (Urea Nitrogen) 24 mg/dL (8.4-25.7); Calc. Creatinine Clearance 76 mL/min (70-130); Calcium 7.7 mg/dL (7.8-10.44); Carbon Dioxide 27 mmol/L (23-31); Chloride 102 mmol/L (98-107); Estimated GFR-MDRD 76; Magnesium 2.7 mg/dL (1.6-2.6)
[2017-04-01] MEDS: HumaLOG 300 UNITS/3 ML VIAL SC PRN ×2 (06:12→17:14)
[2017-04-01] MEDS: Aspirin 81 mg Enteric Coated Tablet PO SCH (08:38)
[2017-04-01] MEDS: Famotidine/PF 20 mg/2ml Vial SLOW IVP SCH ×2 (08:38→20:38)
[2017-04-01] MEDS: Levothyroxine Sodium 25 MCG TAB PO SCH (08:38)
[2017-04-01] MEDS: Carvedilol 6.25 MG TAB PO SCH ×3 (08:38→17:59)
[2017-04-01] MEDS: Lisinopril 20 MG TAB PO SCH (08:38)
[2017-04-01] MEDS: cefTRIAXone\\ROCEPHIN 2 GM, Admixture Fee 1 EACH in Sodium Chloride 0.9% 100 ML IVPB SCH (08:39)
[2017-04-01] MEDS ORDERED: Potassium Chloride 20 MEQ TAB PO SCH (09:30)
--- NOTE | 2017-04-01 12:06 | PRG ---
DATE OF SERVICE: 04/01/2017 This morning he is awake, alert, responsive, no further coughing. He is still wheezing a little bit . PHYSICAL EXAMINATION: VITAL SIGNS: Blood pressure 159/68, sats 100, respirations 18. CHEST: Chest reveals no wheeze. CARDIAC: Normal S1-S2. No gallops. ABDOMEN: Soft. No masses. IMPRESSION: 1. Recurrent torsades. 2. Recent coronary artery bypass graft and urinary tract infection. 3. Asthma. PLAN: Cut back on steroids. PLAN: Continue antibiotics for urinary tract infection. I will notif y Dr. Lazo who has seen him in the past.
--- NOTE | 2017-04-01 13:43 | PDOC.PN ---
- Subjective Encounter Start Date: 04/01/17 Encounter Start Time: 11:10 -: old records requested/rev Pt seen and examined, chart reviewed in its entrety. Getting echocardiogram at the time of my cisit. No further arrhythmia. Denies CP, SON, no n/V/D/C, no fevers or chills, no cough or sputum production. Nursing reports Dr Jacob to see today 10 point ROS performed and neg for all except as above - Objective Resuscitation Status: full MAR Reviewed: Yes Vital Signs & Weight: Vital Signs (12 hours) Temp Pulse Resp BP BP Pulse Ox 04/01/17 11:41 98.5 F 54 L 20 149/59 H 99 04/01/17 10:21 54 L 16 04/01/17 08:38 159/68 H 04/01/17 08:00 98 F 61 15 04/01/17 07:57 61 15 100 04/01/17 07:18 97.7 F 55 L 16 144/54 H 98 04/01/17 04:46 54 L 14 100 04/01/17 04:00 97.7 F 56 L 18 156/63 H 95 Weight Admit Weight 172 lb 8 oz Weight 175 lb 4.8 oz I&O: 03/31/17 04/01/17 04/02/17 06:59 06:59 06:59 Intake Total 680 1770 Output Total 150 720 Balance 530 1050 Result Diagrams: 03/30/17 03:31 04/01/17 04:54 Additional Labs: Accuchecks 04/01/17 04/01/17 03/31/17 11:41 05:50 20:20 POC Glucose 267 H 212 H 246 H 03/31/17 16:36 POC Glucose 182 H Radiology Reviewed by me: Yes EKG Reviewed by me: Yes Phys Exam - Physical Examination Constitutional: NAD HEENT: PERRLA, moist MMs, sclera anicteric, oral pharynx no lesions Neck: no nodes, no JVD, supple, full ROM Respiratory: no wheezing, no rales, no rhonchi, clear to auscultation bilateral Cardiovascular: RRR, no significant murmur, no rub Gastrointestinal: soft, non-tender, no distention, positive bowel sounds Musculoskeletal: no edema, pulses present Neurological: non-focal, normal sensation, moves all 4 limbs Lymphatic: no nodes Psychiatric: normal affect, A&O x 3 Skin: no rash, normal turgor, cap refill <2 seconds Dx/Plan (1) Hypomagnesemia Code(s): E83.42 - HYPOMAGNESEMIA Status: Resolved (2) Hypokalemia Code(s): E87.6 - HYPOKALEMIA Status: Resolved (3) Diarrhea Code(s): R19.7 - DIARRHEA, UNSPECIFIED Status: Resolved Qualifiers: Diarrhea type: presumed infectious Qualified Code(s): A09 - Infectious gastroenteritis and colitis, unspecified (4) Nausea & vomiting Code(s): R11.2 - NAUSEA WITH VOMITING, UNSPECIFIED Status: Resolved Qualifiers: Vomiting type: unspecified (5) Ventricular arrhythmia Code(s): I49.9 - CARDIAC ARRHYTHMIA, UNSPECIFIED Status: Resolved Comment: sustained VTACH, Dr Jacob to see today. has not recurrent. suspect perfect storm of hypokalemia, hypomagnesemia, QT prolonging effects of reglan. (6) CAD (coronary artery disease) Code(s): I25.10 - ATHSCL HEART DISEASE OF [place] CORONARY ARTERY W/O ANG PCTRS Status: Chronic Qualifiers: Coronary Disease-Associated Artery/Lesion type: unspecified vessel or lesion type [place] vs. transplanted heart: [place] heart Associated angina: without angina Qualified Code(s): I25.10 - Atherosclerotic heart disease of [place] coronary artery without angina pectoris (7) Demand ischemia Code(s): I24.8 - OTHER FORMS OF ACUTE ISCHEMIC HEART DISEASE Status: Acute Comment: likley due to A-fib w RVR, demand ischemia (8) Asthma Code(s): J45.909 - UNSPECIFIED ASTHMA, UNCOMPLICATED Status: Chronic Qualifiers: Asthma severity: unspecified severity Asthma complication type: uncomplicated (9) DM2 (diabetes mellitus, type 2) Status: Chronic Qualifiers: Diabetes mellitus complication status: with circulatory complication Diabetes mellitus complication detail: with other circulatory complications Diabetes mellitus exterminator helper termite insulin use: without exterminator helper termite use Qualified Code( s): E11.59 - Type 2 diabetes mellitus with other circulatory complications (10) HLD (hyperlipidemia) Code(s): E78.5 - HYPERLIPIDEMIA, UNSPECIFIED Status: Chronic Qualifiers: Hyperlipidemia type: unspecified Qualified Code(s): E78.5 - Hyperlipidemia , unspecified (11) HTN (hypertension) Code(s): I10 - ESSENTIAL (PRIMARY) HYPERTENSION Status: Chronic Qualifiers: Hypertension type: essential hypertension Qualified Code(s): I10 - Essential (primary) hypertension - Plan cont current plan of care, PT/OT * .
[2017-04-01 14:10] LABS: #Lymphocytes 0.4 thou/uL (1.20-3.40); #Monocytes 0.4 thou/uL (0.11-0.59); #Neutrophils 10.1 thou/uL (1.40-6.50); %Basophils 0.1 % (0.0-1.0); %Eosinophils 0.1 % (0.0-10.0); %Monocytes 3.8 % (0.0-10.0); Hematocrit 33.4 % (42.0-52.0); Red Blood Cell (RBC) Count 4.08 mill/uL (4.70-6.10)
[2017-04-01 14:33] LABS: Anion Gap 11 mmol/L (10-20); BUN (Urea Nitrogen) 25 mg/dL (8.4-25.7); Calc. Creatinine Clearance 81 mL/min (70-130); Calcium 7.6 mg/dL (7.8-10.44); Carbon Dioxide 27 mmol/L (23-31); Chloride 100 mmol/L (98-107); Estimated GFR-MDRD 79
--- NOTE | 2017-04-01 16:18 | EKG ---
Test Reason : Blood Pressure : / mmHG Vent. Rate : 083 BPM Atrial Rate : 083 BPM P-R Int : 000 ms QRS Dur : 156 ms QT Int : 372 ms P-R-T Axes : 000 -19 108 degrees QTc Int : 437 ms Normal sinus rhythm with 1st degree A-V block Premature atrial complexes Non-specific intra-ventricular conduction block Abnormal ECG Confirmed by EMERY GUILLEN ([id number]) on 04/01/2017 4:17:56 PM Referred By: BROCK Confirmed By:EMERY GUILLEN
[2017-04-01] MEDS ORDERED: Furosemide 20 MG/2 ML VIAL SLOW IVP SCH (17:30)
--- NOTE | 2017-04-01 17:30 | PDOC.CTH ---
Cardiology Progress Note - Subjective Pt. seen and eval. No cardiac complaints. Events from the weekend noted. - Objective Vital Signs Temp Pulse Resp BP BP Pulse Ox 04/01/17 17:16 159/68 H 04/01/17 15:39 97.8 F 57 L 16 166/67 H 100 04/01/17 14:16 57 L 15 99 04/01/17 11:41 98.5 F 54 L 20 149/59 H 99 04/01/17 10:21 54 L 16 04/01/17 08:38 159/68 H 04/01/17 08:00 98 F 61 15 04/01/17 07:57 61 15 100 04/01/17 07:18 97.7 F 55 L 16 144/54 H 98 Admit Weight 172 lb 8 oz Weight 175 lb 4.8 oz 03/31/17 04/01/17 04/02/17 06:59 06:59 06:59 Intake Total 680 1770 Output Total 150 720 Balance 530 1050 - Physical Examination General/Neuro: alert & oriented x3 Lungs: CTA Heart: RRR Abdomen: no HSM, NT/ND - Labs Result Diagrams: 04/01/17 13:54 04/01/17 13:54 Troponin/CKMB CK-MB (CK-2) 1.3 ng/mL (0-6.6) 03/28/17 16:25 Troponin I 0.099 ng/mL (< 0.028) H 03/30/17 01:13 - Assessment/Plan 1. Polymorphic VT.Seen by EP today. discussed plan to stop amiodarone and observe. The Vtach felt to be partially due to the amiodarone and prolonged QT which invoked the Torsades. 2. Hypomagnesemia and hypokalemia, improved. 3. Indeterminate troponins. Observe. 4. Nausea and vomiting. 5. CAD. s/p CABG. Stable. 6. Mild decrease in LV function. 7. Bradycardia. if this does not resolve then he will need a pacemaker or an AICD with pacing properties. decrease coreg. Review of Systems - Review of Systems Respiratory: reports: no symptoms reported Cardiac (ROS): reports: no symptoms reported : reports: no symptoms reported Musculoskeletal: reports: no symptoms reported Neurological: reports: no symptoms reported
[2017-04-01] MEDS ORDERED: Amlodipine 5 MG TAB PO SCH (18:00)
[2017-04-01] MEDS ORDERED: Carvedilol 3.125 MG TAB PO SCH (18:15)
[2017-04-01] MEDS: HYDROcodone/Acetaminophen 5/325 mg Tablet PO PRN (19:05)
--- NOTE | 2017-04-01 20:11 | CON ---
ELECTROPHYSIOLOGY CONSULTATION REPORT DATE OF CONSULTATION: 04/01/2017 REFERRING PHYSICIAN: Dr. Bliss. I am seeing Mr. De La Paz at our [facility] in the ICU as an electrophysiology sourcing consultant. His problems are: 1. Nonsustained torsade like ventricular arrhythmias. A. Presentation with chronic amiodarone use, on low potassium and magnesium and bradycardia provoki ng these rhythms. B. Improvement with holding amiodarone and electrolyte replacement is noted. 2. Atrial arrhythmias. A. Prior history of paroxysmal atrial fibrillation. B. Status post maze procedure and left atrial appendage ligation by Dr. Boggs along with his olivares ry artery bypass grafting surgery on 02/01/2017. C. Chronic amiodarone use postop, now on hold. D. Intermittent atrial tachycardia/atrial flutter episode documented on telemetry. 3. Bradycardia, likely due to sinus node disease. A. Amiodarone is now on hold and off digoxin and carvedilol. 4. Coronary artery disease. A. Coronary artery disease, prompting coronary artery bypass grafting surgery in 02/01/2017 along w ith left atrial maze and left atrial appendage ligation. B. A 2D echo from 10/31/2016 shows LVEF of 40% to 45%, moderate to severely dilated left atrium, mo derate mitral regurgitation, mild aortic, tricuspid and pulmonary regurgitation noted. 5. Coronary artery risk factors including diabetes, hyperlipidemia and hypertension. 6. History of asthma. ALLERGIES: The patient is allergic to EGGS. MEDICATIONS AT HOME: Include amiodarone, metformin, potassium, Lasix, digoxin, doxazosin, lisinopri l, theophylline, aspirin and Lantus insulin. SUBJECTIVE: Mr. De La Paz was admitted on the with a 1 week history of nausea and vomiting. He also had some diarrhea and is unable to keep food down. Eventually, he was admitted and he did not have symptoms of abdominal pain, fevers, or chills. No bleeding issues were noted. He did not pas s out. History was recovering from his surgery back in January. He is still gradually getting stron venice he feels. He is now back to where he was before. Easily evaluated in the ER and borderline tro ponins were also noted. While on the floor about 2 days after admission, he did develop episodes of wide complex tachycardia, which appears to be torsade like initiated by a short sequence, this resp onded well to electrolyte replacement. No recent arrhythmias noted, but he has episodes of up per chamber arrhythmias, atypical atrial flutters are seen which are very slow and well rate control led, non-symptomatic by the patient. Otherwise, he is mostly in sinus bradycardia in 50s to 60s. C urrently has no dizziness or loss of consciousness. Hr is still mostly bedbound. No stroke-like sy mptoms. No neurological deficits. REVIEW OF SYSTEMS: The rest of the 12-point review of systems otherwise unremarkable. PAST MEDICAL HISTORY: As above. SOCIAL HISTORY: Patient denies smoking, EtOH or drug abuse. FAMILY HISTORY: Noncontributory. OBJECTIVE DATA: VITAL SIGNS: Blood pressure is 149/59, heart rate 54, respirations 20 and temperature 98.5 degrees Fahrenheit. GENERAL: He is alert and oriented man in no apparent distress. NECK: Supple. Jugular veins not distended. CHEST: Coarse without crackles. CARDIOVASCULAR: Heart sounds are regular to rate and rhythm. No murmur or gallop. ABDOMEN: Benign. Bowel sounds positive. EXTREMITIES: Lower extremities without edema, clubbing or cyanosis. DATABASE: The EKG is reviewed. Initial EKG reveals sinus rhythm, left bundle branch block pattern, QRS duration 148, QTC 489 milliseconds, prominent U waves are seen. Subsequent telemetry strips do reveal progressive sinus bradycardia with continued left bundle branch block pattern. QT is marked ly prolonged on some up to 0.5 milliseconds, prominent U waves. Episodes of torsade like ventricula r arrhythmias are seen short-long sequence. LABORATORY DATA: White blood cell count is 11, hemoglobin 10.8, platelet count is 190. Sodium is 1 34, potassium is 4.1, BUN is 25, creatinine is 0.94, glucose is 334, the potassium levels are initia lly down to 30.3 on 03/30/2017 at the time of the torsades episodes. The magnesium on that day was 1.4, now up to 2.7. ASSESSMENT AND PLAN: Mr. De La Paz is a 71-year-old man with prior history of paroxysmal atrial fibr illation, status post maze and left atrial appendage procedure along with his bypass surgery in [facility]. At that point, his left ventricular ejection fraction was mild to moderate reduced. Now, he is back here with nausea and vomiting spell, which likely contributes to his electrolyte disbalance an d has short runs of nonsustained torsade like ventricular arrhythmia. He had significant QT prolong ation, which is also partially electrolytes and also possibly amiodarone use. He is now off t hese medications, including digoxin and amiodarone . He had no further ventricular arrhythmia s. Complicating issue is his atrial arrhythmias, which also still present despite the chronic amiodaron e use, although currently the rates are controlled. My plan is: 1. Regarding his ventricular tachyarrhythmias, I think continued monitoring is prudent. I suspect the torsade like arrhythmias are likely provoked by and explained as above by the electrolyte abnorm ality and the amiodarone use. Bradycardia also contributed to this. I am expecting this to not to recur if electrolytes are being able to control. For this reason, I would also stop amiodarone and digoxin. If he continues to be bradycardic even with minimal symptoms, he might benefit from atrial pacing. If LVEF is further reduced, consideration for ICD therapy could be made. 2. Echocardiogram is pending. If atrial arrhythmias are likely to worsen after the amiodarone is w ashout, monitor for this sustain symptomatic atrial flutters or fibrillation. If they occur, consid eration for reducing fibrillation could be made. 3. Bradycardia, again likely partially iatrogenic, but could be partially related to sinus node dis ease as well. If no improvement occurs or ventricular tachyarrhythmias recur, atrial pacing could b e a very viable option. We will continue to monitor. 4. Coronary artery disease with mildly elevated troponins as per Cardiology service. 5. History of cardiomyopathy congestion, monitor and treat as per Cardiology. 6. History of asthma, currently stable, but still some wheezes are present as per primary service. 7. History of left appendage ligation, likely not requiring oral anticoagulation at this time, alth ough consideration for BHUMIKA could be made in the future to confirm patency of the ligation.
[2017-04-01] MEDS: Atorvastatin Calcium 10 MG TAB PO SCH (20:38)
[2017-04-02] MEDS ORDERED: Carvedilol 3.125 MG TAB PO SCH ×3 (08:00→13:15)
--- NOTE | 2017-04-02 08:13 | PRG ---
DATE OF SERVICE: 04/02/2017 SUBJECTIVE: Patient says he is doing better, has no complaints. OBJECTIVE: VITAL SIGNS: On exam, temperature is 97.5, pulse 58, respirations 16, O2 saturation 98%, blood pres sure 146/65. HEENT: Unremarkable. NECK: No JVD. LUNGS: He has a few soft expiratory wheezes. CARDIAC: S1 and S2 regular. ABDOMEN: Soft, nontender. EXTREMITIES: No edema. ASSESSMENT: 1. Recurrent torsades. 2. Recent coronary artery bypass grafting surgery. 3. Asthma. PLAN: 1. Further workup per EP group. 2. Continue nebulization treatments as needed.
[2017-04-02] MEDS: Cefdinir 300 MG CAP PO SCH (09:12)
[2017-04-02] MEDS: HYDROcodone/Acetaminophen 5/325 mg Tablet PO PRN ×3 (09:12→20:52)
[2017-04-02] MEDS: Lisinopril 20 MG TAB PO SCH (09:13)
[2017-04-02] MEDS: Aspirin 81 mg Enteric Coated Tablet PO SCH (09:13)
[2017-04-02] MEDS: Amlodipine 5 MG TAB PO SCH (09:13)
[2017-04-02] MEDS: Potassium Chloride 20 MEQ TAB PO SCH (09:13)
[2017-04-02] MEDS: Levothyroxine Sodium 25 MCG TAB PO SCH (09:13)
[2017-04-02] MEDS: Famotidine/PF 20 mg/2ml Vial SLOW IVP SCH ×2 (09:14→20:53)
[2017-04-02] MEDS: Furosemide 20 MG/2 ML VIAL SLOW IVP SCH (09:14)
[2017-04-02] MEDS: HumaLOG 300 UNITS/3 ML VIAL SC PRN ×2 (12:21→18:45)
--- NOTE | 2017-04-02 12:58 | PDOC.CTH ---
<Johanna Pruett - Last Filed: 04/02/17 12:59> Cardiology Progress Note - Subjective the pt was seen and examined. No overnight events. No cardiac complaints. He has walked today without dizziness, lightheadedness, SOB or other cardiac complaints. Complains of intermittent spasm in his lower back - Objective Vital Signs Temp Pulse Resp BP BP Pulse Ox 04/02/17 12:00 97.5 F L 62 16 131/63 95 04/02/17 09:55 63 20 94 L 04/02/17 09:13 58 L 159/68 H 04/02/17 08:25 97.8 F 58 L 19 145/63 H 100 04/02/17 08:00 97.8 F 58 L 18 100 04/02/17 07:19 97 04/02/17 07:18 58 L 16 98 04/02/17 03:43 97.5 F L 56 L 16 146/65 H 96 04/02/17 01:42 57 L 16 97 Admit Weight 172 lb 8 oz Weight 174 lb 14.4 oz 04/01/17 04/02/17 04/03/17 06:59 06:59 06:59 Intake Total 1770 260 Output Total 720 570 Balance 1050 -310 - Physical Examination General/Neuro: alert & oriented x3 Neck: no JVD present Lungs: CTA Heart: RRR Abdomen: soft Extremities: other: (No edema) - Telemetry Telemetry Rhythm: SB & SR - Labs Result Diagrams: 04/01/17 13:54 04/01/17 13:54 Troponin/CKMB CK-MB (CK-2) 1.3 ng/mL (0-6.6) 03/28/17 16:25 Troponin I 0.099 ng/mL (< 0.028) H 03/30/17 01:13 - Assessment/Plan 1. Polymorphic VT - Remain SB and SR 50-60s with BBB. amiodarone is on hold due to prolonged QT which invoked the Torsades; cont. monitor on tele 2. Bradycardia - Remain SB&SR 50-60s with Coreg 3.125mg BID. cont. monitor 3. Indeterminate troponins. Observe. 4. CAD. s/p CABG - Stable. cont. monitor 5. Mild decrease in LV function - stable with Lasix 6. Asthma - well controlled with breathing treatment 7. DM type 2 - well controlled; managed by PCP 8. Hyperlipidemia - on Statin medication 9. Nausea and vomiting - resolved MAR reviewed Review of Systems - Review of Systems Constitutional: reports: no symptoms reported EENTM: reports: no symptoms reported Respiratory: reports: no symptoms reported Cardiac (ROS): reports: no symptoms reported ABD/GI: reports: no symptoms reported : reports: no symptoms reported Musculoskeletal: reports: see HPI <Yessenia Bliss - Last Filed: 04/02/17 16:17> Cardiology Progress Note - Objective Vital Signs Temp Pulse Resp BP BP Pulse Ox 04/02/17 14:02 80 16 04/02/17 12:50 97.5 F L 63 18 173/70 H 94 L 04/02/17 12:00 97.5 F L 62 16 131/63 95 04/02/17 09:55 63 20 94 L 04/02/17 09:13 58 L 159/68 H 04/02/17 08:25 97.8 F 58 L 19 145/63 H 100 04/02/17 08:00 97.8 F 58 L 18 100 04/02/17 07:19 97 04/02/17 07:18 58 L 16 98 Admit Weight 172 lb 8 oz Weight 174 lb 14.4 oz 04/01/17 04/02/17 04/03/17 06:59 06:59 06:59 Intake Total 1770 260 Output Total 720 570 Balance 1050 -310 - Labs Result Diagrams: 04/01/17 13:54 04/01/17 13:54 Troponin/CKMB CK-MB (CK-2) 1.3 ng/mL (0-6.6) 03/28/17 16:25 Troponin I 0.099 ng/mL (< 0.028) H 03/30/17 01:13 - Assessment/Plan Pt. wa seen and eval. by me. I agree with the A/P by the BUTCHER HEAD.Thanks for EP input.
[2017-04-02] MEDS: Carvedilol 3.125 MG TAB PO SCH (16:35)
--- NOTE | 2017-04-02 17:23 | PDOC.PN ---
- Subjective Encounter Start Date: 04/02/17 Encounter Start Time: 17:15 Subjective: f/u for non-sustained Torsades likely due to electrolyte disturbance -: in combination with Amiodarone use. Bradycardia noted but improved -: after d/c Amio and Digoxin. Likely supportive tx. No new complaints - Objective MAR Reviewed: Yes Vital Signs & Weight: Vital Signs (12 hours) Temp Pulse Resp BP BP Pulse Ox 04/02/17 14:02 80 16 04/02/17 12:50 97.5 F L 63 18 173/70 H 94 L 04/02/17 12:00 97.5 F L 62 16 131/63 95 04/02/17 09:55 63 20 94 L 04/02/17 09:13 58 L 159/68 H 04/02/17 08:25 97.8 F 58 L 19 145/63 H 100 04/02/17 08:00 97.8 F 58 L 18 100 04/02/17 07:19 97 04/02/17 07:18 58 L 16 98 Weight Admit Weight 172 lb 8 oz Weight 174 lb 14.4 oz I&O: 04/01/17 04/02/17 04/03/17 06:59 06:59 06:59 Intake Total 1770 260 Output Total 720 570 Balance 1050 -310 Result Diagrams: 04/01/17 13:54 04/01/17 13:54 Additional Labs: Accuchecks 04/02/17 04/02/17 04/01/17 12:09 05:36 20:30 POC Glucose 261 H 141 H 237 H 04/01/17 17:10 POC Glucose 263 H Microbiology 04/01/17 20:42 Stool Stool Occult Blood (MATHEUS) - Final 03/29/17 12:00 Urine voided Urine Culture - Final Klebsiella pneumoniae ssp pneu 03/29/17 20:58 Venous blood - Left Arm Blood Culture - Preliminary NO GROWTH AT 48 HOURS 03/29/17 20:54 Venous blood - Left Hand Blood Culture - Preliminary NO GROWTH AT 48 HOURS Laboratory Tests 03/28/17 03/29/17 03/30/17 19:45 04:24 03:31 Potassium 3.5 3.3 L Magnesium 1.4 L Digoxin 0.35 L 03/30/17 03/31/17 04/01/17 12:00 17:00 04:54 Potassium 3.4 L 4.2 3.8 Magnesium 2.1 2.7 H Digoxin 04/01/17 04/02/17 13:54 04:53 Potassium 4.1 Magnesium 2.5 Digoxin Radiology Reviewed by me: Yes (2D echo - EF 45-50%, MU, mod TR, MR) EKG Reviewed by me: Yes (Tele - SR in 60's) Phys Exam - Physical Examination Constitutional: NAD HEENT: PERRLA, oral pharynx no lesions Neck: no JVD, supple Respiratory: no wheezing, clear to auscultation bilateral II/ ADIN RUSB Cardiovascular: RRR Gastrointestinal: soft, non-tender, no distention, positive bowel sounds Musculoskeletal: no edema, pulses present Neurological: normal sensation, moves all 4 limbs Psychiatric: A&O x 3 Skin: normal turgor, cap refill <2 seconds Dx/Plan (1) UTI (urinary tract infection) Status: Acute Comment: Klebsiella spp pansensitive, continue Omnicef 600mg daily (2) CAD (coronary artery disease) Code(s): I25.10 - ATHSCL HEART DISEASE OF [place] CORONARY ARTERY W/O ANG PCTRS Status: Chronic Qualifiers: Coronary Disease-Associated Artery/Lesion type: unspecified vessel or lesion type [place] vs. transplanted heart: [place] heart Associated angina: without angina Qualified Code(s): I25.10 - Atherosclerotic heart disease of [place] coronary artery without angina pectoris Comment: Stable, no decompensation, continue ASA, Lipitor, Coreg (3) Diarrhea Code(s): R19.7 - DIARRHEA, UNSPECIFIED Status: Resolved Qualifiers: Diarrhea type: presumed infectious Qualified Code(s): A09 - Infectious gastroenteritis and colitis, unspecified Comment: Resolved (4) Hypokalemia Code(s): E87.6 - HYPOKALEMIA Status: Resolved Comment: Resolved (5) Hypomagnesemia Code(s): E83.42 - HYPOMAGNESEMIA Status: Resolved Comment: Resolved (6) Nausea & vomiting Code(s): R11.2 - NAUSEA WITH VOMITING, UNSPECIFIED Status: Resolved Qualifiers: Vomiting type: unspecified Comment: Resolved (7) Ventricular arrhythmia Code(s): I49.9 - CARDIAC ARRHYTHMIA, UNSPECIFIED Status: Resolved Comment: Likely due to electrolyte disturbance in conjunction with Amiodarone, stable currently, likely no intervention needed - Plan continue antibiotics, out of bed/ambulate, DVT proph w/SCDs Stable overall -: Continue tele monitoring for any evidence of atrial tachyarrhythmias -: Hold off Amiodarone and Digoxin -: Continue Coreg -: Continue ASA and Lipitor * Likely home in 24h
[2017-04-02] MEDS: Mometasone/Formoterol 120 PUFF INHALER INH SCH (18:59)
--- NOTE | 2017-04-02 19:19 | PRG ---
DATE OF SERVICE: 04/02/2017 This is a followup note for Fredy De La Paz. REFERRING PHYSICIAN: Ameena Bliss M.D. SUBJECTIVE: Mr. De La Paz since doing well. He is transferred to the regular floor. He is feeling well. OBJECTIVE DATA: VITAL SIGNS: Blood pressure is 131/63, heart rate 62, respiration 16, and temperature 97.5 degrees Fahrenheit. GENERAL: He is alert and oriented man in no apparent distress. NECK: Supple. Jugular venous not distended. CHEST: Coarse without crackles. CARDIOVASCULAR: Heart sounds are regular to rate and rhythm. No murmur or gallop. ABDOMEN: Benign. Bowel sounds positive. EXTREMITIES: Lower extremities without edema, clubbing or cyanosis. DATABASE: Telemetry strips reviewed reveals a short atrial tachyarrhythmia which resolved yesterday and now back in sinus rhythm, sinus bradycardia at 50-60s. ASSESSMENT AND PLAN: Mr. De La Paz is a 71-year-old man who presented with nausea and vomiting, diar rosa, very low potassium and magnesium and developed torsade-like arrhythmia. He has been on amioda argelia ever since his surgery on 02/01/2017 and maze procedure was also performed. Despite he had a l ow grade where rate-controlled atrial arrhythmias while the amiodarone was on hold. ASSESSMENT AND PLAN: 1. Polymorphic VT likely due to reversible factors which include a very low potassium, magnesium an d recent amiodarone use. For now, I do not think EP study or defibrillator placement is necessary. Nevertheless, I would avoid amiodarone or QT prolonging agents. His potassium needs to be periodic ally rechecked. If recurrent could consider ICD therapy over at this point, he is likely does not q ualify for that. 2. History of cardiomyopathy with slight improvement 45-50%, moderate mitral regurgitation and mode [id number] tricuspid regurgitation. No further arrhythmia noted since the [place] resolved. S tandard heart failure therapy is recommended. 3. Bradycardia, likely after effect of the amiodarone, he is on low dose beta jose, it is reason able to continue. I expect his heart is still improved, if not be cardiac symptoms, he should recei ve a pacemaker. 4. History of atrial arrhythmias post-maze procedure during his bypass surgery. I expect them to b e more prevalent of amiodarone, he might benefit for further consideration for stressing this ablati on procedures. 5. Discussed this with the patient and will discuss with Dr. Bliss. Thank you again for allowing me to participate in the care of this patient. We will have to follow h im as an outpatient.
[2017-04-02] MEDS: Atorvastatin Calcium 10 MG TAB PO SCH (20:52)
[2017-04-03] MEDS: HYDROcodone/Acetaminophen 5/325 mg Tablet PO PRN ×3 (01:48→21:37)
[2017-04-03] MEDS: Mometasone/Formoterol 120 PUFF INHALER INH SCH ×2 (07:19→18:28)
[2017-04-03] MEDS: Cefdinir 300 MG CAP PO SCH (09:01)
[2017-04-03] MEDS: Levothyroxine Sodium 25 MCG TAB PO SCH (09:01)
[2017-04-03] MEDS: Amlodipine 5 MG TAB PO SCH (09:02)
[2017-04-03] MEDS: Potassium Chloride 20 MEQ TAB PO SCH (09:02)
[2017-04-03] MEDS: Lisinopril 20 MG TAB PO SCH ×2 (09:02→21:19)
[2017-04-03] MEDS: Aspirin 81 mg Enteric Coated Tablet PO SCH (09:02)
[2017-04-03] MEDS: Carvedilol 3.125 MG TAB PO SCH ×2 (09:02→17:31)
[2017-04-03] MEDS: Famotidine/PF 20 mg/2ml Vial SLOW IVP SCH ×2 (09:03→21:19)
[2017-04-03] MEDS: Furosemide 20 MG/2 ML VIAL SLOW IVP SCH (09:03)
--- NOTE | 2017-04-03 09:04 | PRG ---
DATE OF SERVICE: 04/03/2017 He complains of shortness of breath. He woke up at 3:00 this morning and had to sleep in a chair fo r the rest of the night because he could not breathe. PHYSICAL EXAMINATION: VITAL SIGNS: On exam his temperature is 97.7, pulse 60, respirations 20, sats 96, blood pressure 17 9/88. HEENT: Unremarkable. NECK: No JVD. LUNGS: A few expiratory wheezes, no crackles. CARDIAC: S1 and S2 regular. ABDOMEN: Soft. EXTREMITIES: No edema. LABORATORY DATA: No new labs were done today. ASSESSMENT: 1. Recurrent torsades. 2. Recent coronary bypass grafting surgery. 3. Asthma. PLAN: I will try to spread his steroids out a little and see if that helps. I will increase the do se of Dulera to a therapeutic dose of 2 puffs twice daily. He is currently undergoing further ken p from the EP group.
[2017-04-03] MEDS: HumaLOG 300 UNITS/3 ML VIAL SC PRN ×2 (11:19→17:30)
--- NOTE | 2017-04-03 11:52 | PDOC.PN ---
- Subjective Encounter Start Date: 04/03/17 Encounter Start Time: 11:35 Subjective: f/u for polymorphic VT with tele showing sinus bradycardia and no -: arrhythmia docuemented overnight. Pt c/o SOB overnight sitting in chair -: for relief. Given Duonebs this am with improvement. - Objective MAR Reviewed: Yes Vital Signs & Weight: Vital Signs (12 hours) Temp Pulse Resp BP BP Pulse Ox 04/03/17 11:04 60 20 95 04/03/17 09:02 66 159/68 H 04/03/17 08:40 97.7 F 66 16 179/76 H 94 L 04/03/17 07:18 62 20 96 04/03/17 04:00 97.7 F 62 21 H 179/88 H 96 04/03/17 01:23 54 L 16 96 04/03/17 00:30 96 04/03/17 00:00 97.4 F L 56 L 18 160/76 H 92 L Weight Admit Weight 172 lb 8 oz Weight 174 lb 14.4 oz I&O: 04/02/17 04/03/17 04/04/17 06:59 06:59 06:59 Intake Total 260 940 Output Total 570 700 Balance -310 240 Result Diagrams: 04/01/17 13:54 04/01/17 13:54 Additional Labs: Accuchecks 04/03/17 04/03/17 04/02/17 10:42 05:58 17:03 POC Glucose 202 H 144 H 250 H 04/02/17 12:09 POC Glucose 261 H Microbiology 04/01/17 20:42 Stool Stool Occult Blood (MATHEUS) - Final 03/29/17 12:00 Urine voided Urine Culture - Final Klebsiella pneumoniae ssp pneu 03/29/17 20:58 Venous blood - Left Arm Blood Culture - Preliminary NO GROWTH AT 48 HOURS 03/29/17 20:54 Venous blood - Left Hand Blood Culture - Preliminary NO GROWTH AT 48 HOURS Laboratory Tests 03/28/17 03/29/17 03/30/17 19:45 04:24 03:31 Potassium 3.5 3.3 L Magnesium 1.4 L Digoxin 0.35 L 03/30/17 03/31/17 04/01/17 12:00 17:00 04:54 Potassium 3.4 L 4.2 3.8 Magnesium 2.1 2.7 H Digoxin 04/01/17 04/02/17 13:54 04:53 Potassium 4.1 Magnesium 2.5 Digoxin EKG Reviewed by me: Yes (Tele - Sinus bradycardia in 50's, no VT noted) Phys Exam - Physical Examination Constitutional: NAD HEENT: PERRLA, oral pharynx no lesions Neck: no JVD, supple Respiratory: no wheezing, clear to auscultation bilateral Cardiovascular: RRR Gastrointestinal: soft, non-tender, no distention, positive bowel sounds Musculoskeletal: no edema, pulses present Neurological: normal sensation, moves all 4 limbs Psychiatric: A&O x 3 Skin: normal turgor, cap refill <2 seconds Dx/Plan (1) UTI (urinary tract infection) Status: Acute Comment: Klebsiella spp pansensitive, continue Omnicef 600mg daily (2) CAD (coronary artery disease) Code(s): I25.10 - ATHSCL HEART DISEASE OF [place] CORONARY ARTERY W/O ANG PCTRS Status: Chronic Qualifiers: Coronary Disease-Associated Artery/Lesion type: unspecified vessel or lesion type [place] vs. transplanted heart: [place] heart Associated angina: without angina Qualified Code(s): I25.10 - Atherosclerotic heart disease of [place] coronary artery without angina pectoris Comment: Stable, no decompensation, continue ASA, Lipitor, Coreg (3) Diarrhea Code(s): R19.7 - DIARRHEA, UNSPECIFIED Status: Resolved Qualifiers: Diarrhea type: presumed infectious Qualified Code(s): A09 - Infectious gastroenteritis and colitis, unspecified Comment: Resolved (4) Hypokalemia Code(s): E87.6 - HYPOKALEMIA Status: Resolved Comment: Resolved (5) Hypomagnesemia Code(s): E83.42 - HYPOMAGNESEMIA Status: Resolved Comment: Resolved (6) Nausea & vomiting Code(s): R11.2 - NAUSEA WITH VOMITING, UNSPECIFIED Status: Resolved Qualifiers: Vomiting type: unspecified Comment: Resolved (7) Ventricular arrhythmia Code(s): I49.9 - CARDIAC ARRHYTHMIA, UNSPECIFIED Status: Resolved Comment: Likely due to electrolyte disturbance in conjunction with Amiodarone, stable currently, likely no intervention needed (8) Dyspnea Code(s): R06.00 - DYSPNEA, UNSPECIFIED Status: Acute Qualifiers: Dyspnea type: shortness of breath Qualified Code(s): R06.02 - Shortness of breath; R06.00 - Dyspnea, unspecified; R06.01 - Orthopnea Comment: ? etiology, improved with bronchodilators, trial Solumedrol, Dulera 2 puffs BID - Plan continue antibiotics, respiratory therapy, out of bed/ambulate, DVT proph w/SCDs Stable overall -: Continue off Amiodarone and QT prolonging agents -: Trial of Solumedrol and increase Dulera 2puffs BID -: OOB/ambulate -: Likely home in 24h * .
[2017-04-03 12:32] VITALS: BMI 30.5
--- NOTE | 2017-04-03 13:42 | PRG ---
DATE OF SERVICE: 04/03/2017 SUBJECTIVE: Mr. De La Paz is doing well, still dyspneic, but better than before. He is ambulating without difficulty. OBJECTIVE: VITAL SIGNS: Blood pressure is 115/68, heart rate 66, respirations 20, temperature 97.7 degrees Fahrenheit. GENERAL: Alert and oriented man in no apparent distress. NECK: Neck is supple. Jugular veins not distended. CHEST: Coarse without crackles. CARDIOVASCULAR: Heart sounds are regular rate and rhythm. No murmur or gallop. ABDOMEN: Benign. Bowel sounds are positive. EXTREMITIES: Lower extremities without edema, clubbing or cyanosis. DATABASE: The telemetry strips reviewed revealing sinus rhythm with frequent atrial arrhythmia or ventricular arrhythmia. ASSESSMENT AND PLAN: Mr. De La Paz is a 71-year-old man with a history of atrial arrhythmias status post Maze procedure and immunosuppression, post- bypass surgery last 2 months. Admitted after an episodes of nausea, vomiting, and dehydration and electrolytes were decreasing in the range. He also had runs of nonsustained torsades in the setting of QT prolongation and hypokalemia , now that is completely resolved after potassium and magnesium replacement and holding amiodarone. He has mild cardiomyopathy, LVEF 45-50%. IMPRESSION: 1. Polymorphic ventricular tachycardia, likely due to reversible factors.Continue potassium, magnesium and amiodarone use for now, will not think EP study or ICD implantation would be fruitful. Hold QT prolonging agents and keep electrolytes is normal range, so far he has got no recurrences of this. 2. History of atrial arrhythmias post-maze procedure. Hence, we are going to take him off amiodarone, he might have more recurrences in the future of atrial arrhythmias in which case likely ablation procedure is a strong consideration. 3. History of cardiomyopathy, LVEF 45-50%, standard heart failure therapy is requested. 4. Bradycardia, possibly due to lingering amiodarone effect. I am expecting to improve, so far no definite bradycardic symptoms. 5. Pulmonary disease, asthma, likely poor long-term candidate for amiodarone. Followed by Dr. Lazo. 6. Elevated BMI. PLAN: Routine followup in the office in 4-6 weeks. YOUD
--- NOTE | 2017-04-03 16:57 | PDOC.CTH ---
<Johanna Pruett - Last Filed: 04/03/17 17:00> Cardiology Progress Note - Subjective The pt seen and examined. No cardiac complaints. He could not sleep well last due to chronic cough last night. At this moment, his breathing and cough are stable. He complains of intermittent back pain - Objective Vital Signs Temp Pulse Resp BP BP Pulse Ox 04/03/17 16:00 98.2 F 66 18 185/86 H 93 L 04/03/17 14:44 64 16 96 04/03/17 11:29 97.2 F L 64 20 169/78 H 93 L 04/03/17 11:04 60 20 95 04/03/17 09:20 97.7 F 66 20 94 L 04/03/17 09:02 66 159/68 H 04/03/17 08:40 97.7 F 66 16 179/76 H 94 L 04/03/17 07:18 62 20 96 Admit Weight 172 lb 8 oz Weight 175 lb 04/02/17 04/03/17 04/04/17 06:59 06:59 06:59 Intake Total 260 940 Output Total 570 700 Balance -310 240 - Physical Examination General/Neuro: alert & oriented x3 Neck: no JVD present Lungs: other: (Wheezing in his Rt lobe and diminished in his Lt lobe) Heart: RRR Abdomen: soft Extremities: other: (No edemas) - Telemetry Telemetry Rhythm: SB 58 - Labs Result Diagrams: 04/01/17 13:54 04/01/17 13:54 Troponin/CKMB CK-MB (CK-2) 1.3 ng/mL (0-6.6) 03/28/17 16:25 Troponin I 0.099 ng/mL (< 0.028) H 03/30/17 01:13 - Assessment/Plan 1. Polymorphic VT - Remain SB and SR 50-60s with BBB. Amiodarone is on hold due to prolonged QT which invoked the Torsades; cont. monitor on tele 2. Bradycardia - Remain SB&SR 50-60s with Coreg 3.125mg BID. cont. monitor 3. HTN - Increase Lisinopril 20mg daily to BID 4. CAD. s/p CABG - Stable. cont. monitor 5. Mild decrease in LV function - stable with Lasix 6. Asthma - on breathing treatment; managed by coat fitter 7. DM type 2 - on ACHS BG check with ss Insulin; managed by PCP 8. Hyperlipidemia - on Statin medication 9. Nausea and vomiting - resolved MAR reviewed Review of Systems - Review of Systems Constitutional: reports: no symptoms reported EENTM: reports: no symptoms reported Respiratory: reports: no symptoms reported Cardiac (ROS): reports: no symptoms reported ABD/GI: reports: no symptoms reported : reports: no symptoms reported Musculoskeletal: reports: no symptoms reported Skin: reports: no symptoms reported <Yessenia Bliss - Last Filed: 04/03/17 19:31> Cardiology Progress Note - Objective Vital Signs Temp Pulse Resp BP BP Pulse Ox 04/03/17 18:27 67 16 96 04/03/17 16:00 98.2 F 66 18 185/86 H 93 L 04/03/17 14:44 64 16 96 04/03/17 11:29 97.2 F L 64 20 169/78 H 93 L 04/03/17 11:04 60 20 95 04/03/17 09:20 97.7 F 66 20 94 L 04/03/17 09:02 66 159/68 H 04/03/17 08:40 97.7 F 66 16 179/76 H 94 L Admit Weight 172 lb 8 oz Weight 175 lb 04/02/17 04/03/17 04/04/17 06:59 06:59 06:59 Intake Total 260 940 Output Total 570 700 Balance -310 240 - Labs Result Diagrams: 04/01/17 13:54 04/01/17 13:54 Troponin/CKMB CK-MB (CK-2) 1.3 ng/mL (0-6.6) 03/28/17 16:25 Troponin I 0.099 ng/mL (< 0.028) H 03/30/17 01:13 - Assessment/Plan He was seen and evaluated by me. I agree with the A/P by the INSPECTION AND TESTING SUPERVISOR. He is ambulating in the halls and has not had any further significant arrhythmias.
[2017-04-03] MEDS: Atorvastatin Calcium 10 MG TAB PO SCH (21:19)
[2017-04-03] MEDS ORDERED: Melatonin 3 MG TAB PO SCH (22:00)
[2017-04-04] MEDS ORDERED: Diabetic Tussin 200 MG/10 ML UDCUP PO SCH (03:15)
[2017-04-04] MEDS: Mometasone/Formoterol 120 PUFF INHALER INH SCH (06:41)
[2017-04-04] MEDS: HYDROcodone/Acetaminophen 5/325 mg Tablet PO PRN (08:48)
[2017-04-04] MEDS: Potassium Chloride 20 MEQ TAB PO SCH (08:48)
[2017-04-04] MEDS: Aspirin 81 mg Enteric Coated Tablet PO SCH (08:50)
[2017-04-04] MEDS: Cefdinir 300 MG CAP PO SCH (08:50)
[2017-04-04] MEDS: Carvedilol 3.125 MG TAB PO SCH ×2 (08:51→16:43)
[2017-04-04] MEDS: Levothyroxine Sodium 25 MCG TAB PO SCH (08:51)
[2017-04-04] MEDS: Amlodipine 5 MG TAB PO SCH (08:51)
--- NOTE | 2017-04-04 08:58 | PRG ---
DATE OF SERVICE: 04/04/2017 He is still having episodes of shortness of breath and mucus production in the middle of the night. Otherwise, he feels fine and wants to go home. PHYSICAL EXAMINATION: VITAL SIGNS: His temperature is 97.6, pulse 67, respirations 12, O2 sat 94%, blood pressure 179/81. HEENT: Unremarkable. NECK: No JVD. CHEST: Clear. CARDIAC: S1 and S2 appears to be regular. ABDOMEN: Soft and nontender. EXTREMITIES: No edema. ASSESSMENT: 1. V-tach at the time of admission 2. History of cardiomyopathy. 3. Asthma. PLAN: 1. Switch to oral steroids. 2. Increase activity as tolerated. 3. Continue Dulera. I really have no objection to him being discharged if he seems appropriate from a cardiac standpoint .
[2017-04-04] MEDS: Lisinopril 20 MG TAB PO SCH (08:59)
[2017-04-04] MEDS: Furosemide 20 MG/2 ML VIAL SLOW IVP SCH (08:59)
[2017-04-04] MEDS ORDERED: predniSONE 20 MG TAB PO SCH (09:00)
[2017-04-04 09:03] VITALS: TEMP 97.9
[2017-04-04] MEDS ORDERED: guaiFENesin ER 600 MG TAB PO SCH ×2 (11:00→12:15)
[2017-04-04] MEDS: Famotidine/PF 20 mg/2ml Vial SLOW IVP SCH (11:41)
[2017-04-04] MEDS: HumaLOG 300 UNITS/3 ML VIAL SC PRN (11:53)
[2017-04-04] MEDS: hydrALAZINE 20 MG/ML VIAL SLOW IVP PRN (11:54)
--- NOTE | 2017-04-04 12:48 | DIS ---
DATE OF ADMISSION: 03/28/2017 DATE OF DISCHARGE: 04/04/2017 DISCHARGE DIAGNOSES: 1. Polymorphic ventricular tachycardia secondarily to electrolyte disturbance and amiodarone therap y. 2. Urinary tract infection with Klebsiella species, stable. 3. Coronary artery disease, chronic and stable. 4. Gastroenteritis, resolved. 5. Hypokalemia secondary to gastroenteritis, resolved. 6. Hypomagnesemia, resolved. 7. Nausea and vomiting, resolved. 8. History of asthma, stable. 9. Status post acute hypoxic respiratory failure, multifactorial, resolved. CONSULTATIONS: 1. Dr. Grubbs and Clifton with Pulmonology Service. 2. Dr. Bliss with Cardiology Service. 3. Dr. Jacob with Electrophysiology Service. PERTINENT LAB AND X-RAY FINDINGS: Potassium ranged between 3.3-4.2. Troponin I ranged between 0.03 4-0.099, magnesium ranged between 1.4-2.7. CBC showed a white blood cell count ranging between 6.2- 11.0, hemoglobin ranged between 10.8-12.5. Digoxin level 0.35. Urine culture dated 03/29/2017 show ed Klebsiella pneumonia species greater than 100,000 pansensitive. Blood cultures x2 from 7 showed no growth at 5 days. Stool Hemoccult negative x1 on 04/01/2017. Portable chest x-ray date d 03/28/2017 showed cardiomegaly without acute process. Abdominal ultrasound dated 03/28/2017 showe d fatty liver. Prominent pancreatic duct. Right renal cyst. No acute process identified. CT of t he brain without contrast dated 03/29/2017 showed no acute intracranial process. CT angiogram of th e chest dated 03/30/2017 showed no evidence for pulmonary embolus. Ground glass infiltrates within each lung field. Small bilateral pleural fluid. Portable chest x-ray dated 03/31/2017 showed incre ased opacities of the upper and right lower lobe, concerning for multifocal infectious process. Dev eloping edema noted. A 2D transthoracic echocardiogram dated 04/01/2017 showed ejection fraction of 45% to 50%. Diastolic dysfunction noted. Moderate to severe dilation of the left atrium. Mitral valve regurgitation. Moderate to severe tricuspid valve regurgitation. HOSPITAL COURSE: The patient was initially admitted to the telemetry unit after presenting with elmira sea, vomiting, and diarrhea. The patient was noted dehydrated with hypokalemia and hypomagnesemia. In the emergency room, the patient was noted with T-wave inversions in the precordial leads, elevat ed troponin I, and concern for acute coronary syndrome. The patient was given antiemetics as well a s intravenous fluids for supportive measures. The patient underwent extensive evaluation with multi ple imaging modalities and metabolic survey with evidence of urinary tract infection with Klebsiella species as stated previously. The patient was placed on IV Rocephin, transitioning to oral Omnicef with stabilization after urine culture showed pansensitive organism. The patient apparently underw ent a code green due to concern for TIA with left-sided weakness, diaphoresis, and respiratory distr ess. The patient underwent CT imaging of the brain showing no evidence of acute process or evidence of CVA. The patient was given general cardiopulmonary supportive measures and evaluated by the Pul monology Service. The patient continued on broad spectrum IV antibiotic therapy, as well as general pulmonary supportive measures and telemetry monitoring showed evidence of polymorphic ventricular t achycardia during the code green. The patient was evaluated by the Cardiology Service with recommen dations to discontinue amiodarone and digoxin therapy, and correct electrolyte disturbance including hypokalemia and hypomagnesemia. The patient had resolution of the polymorphic ventricular tachycar micheline; however, was evaluated by the Electrophysiology Service. We do not recommend any further or ag gressive intervention currently and to correct underlying metabolic process. The patient was contin ued off amiodarone with recommendations to discontinue the therapy as well as digoxin and to monitor clinically. The patient overall stabilized in regards to cardiac status and was transferred to the telemetry unit for further monitoring. The patient's respiratory status improved and electrolyte a bnormalities corrected with replacement therapy. Overall, the patient remained clinically stable fo r the remainder of the hospital course, tolerating regular oral intake, ambulatory without assistanc e or difficulty and ready for discharge on 04/04/2017. DISCHARGE MEDICATIONS: 1. Albuterol sulfate 1 inhalation q.i.d. p.r.n. 2. ProAir HFA two puffs inhaled q.4 hours p.r.n. 3. Norvasc 5 mg 1 tablet p.o. daily. 4. Enteric-coated aspirin 81 mg 1 tablet p.o. daily. 5. Lipitor 10 mg p.o. at bedtime. 6. Coreg 3.125 mg p.o. b.i.d. 7. Omnicef 600 mg 1 tablet p.o. daily x5 days. 8. Doxazosin mesylate 16 mg p.o. daily. 9. Advair Diskus 1 inhalation b.i.d. 10. Lasix 40 mg 1 tablet p.o. daily. 11. [place] 5/325 mg 1 tablet p.o. q.4-6 hours p.r.n. pain. 12. Lantus 70 units subcutaneously b.i.d. 13. Levothyroxine 25 mcg p.o. daily. 14. Lisinopril 20 mg p.o. daily. 15. K-Dur 20 mEq one tablet p.o. daily. 16. Theophylline ER 300 mg p.o. daily. 17. Mucinex ER 600 mg p.o. b.i.d. 18. Metformin XR 750 mg p.o. b.i.d. 19. Prednisone 20 mg p.o. b.i.d. x2 days, followed by 30 mg p.o. x1 day, followed by 20 mg p.o. x1 day. 20. Tramadol 50 mg p.o. q.i.d. p.r.n. FOLLOWUP: 1. The patient will follow up with his primary care provider, Dr. Elizabeth Medina within 7 days. 2. The patient will follow up with Dr. Paul Bliss with [facility] Cardiology Service and to call her office for appointment time and date. CONDITION ON DISCHARGE: Fair. ACTIVITY: ad abhijeet. DIET: Heart healthy and ADA. CODE STATUS: FULL. DISPOSITION: Home 04/04/2017. Total time preparing and coordinating discharge is 40 minutes.
--- NOTE | 2017-04-04 13:42 | PDOC.CTH ---
Cardiology Progress Note - Subjective The pt seen and examined. No overnight events. No cardiac complaints. His BP is elevated today. He denied headache, blurry vision, or other cardiac complaints when he walks in the muhammad or to bathroom. - Objective Vital Signs Temp Pulse Resp BP BP Pulse Ox 04/04/17 13:16 157/73 H 04/04/17 12:10 97.9 F 65 18 160/72 H 98 04/04/17 11:54 59 L 189/84 H 04/04/17 11:26 60 12 04/04/17 08:51 67 189/89 H 04/04/17 08:45 97.9 F 20 94 L 04/04/17 08:09 97.9 F 59 L 20 04/04/17 06:41 67 12 04/04/17 06:32 94 L 04/04/17 06:31 67 12 04/04/17 04:00 97.6 F 58 L 16 179/81 H 94 L Admit Weight 172 lb 8 oz Weight 174 lb 12.8 oz 04/03/17 04/04/17 04/05/17 06:59 06:59 06:59 Intake Total 940 915 Output Total 700 1850 Balance 240 -935 - Physical Examination General/Neuro: alert & oriented x3 Neck: no JVD present Lungs: CTA Heart: RRR Abdomen: soft Extremities: other: (No edema) - Telemetry Telemetry Rhythm: SR 68 - Labs Result Diagrams: 04/01/17 13:54 04/01/17 13:54 Troponin/CKMB CK-MB (CK-2) 1.3 ng/mL (0-6.6) 03/28/17 16:25 Troponin I 0.099 ng/mL (< 0.028) H 03/30/17 01:13 - Assessment/Plan 1. Polymorphic VT - Remain SB and SR 50-60s with BBB. Amiodarone is on hold due to prolonged QT which invoked the Torsades; cont. monitor on tele 2. Bradycardia - Remain SB&SR 50-60s with Coreg 3.125mg BID. cont. monitor 3. HTN - Start Imdur 30 QD; cont. monitor 4. CAD. s/p CABG - Stable. cont. monitor 5. Mild decrease in LV function - stable with Lasix 6. Asthma - on breathing treatment; managed by foot specialist 7. DM type 2 - on ACHS BG check with ss Insulin; managed by PCP 8. Hyperlipidemia - on Statin medication 9. Nausea and vomiting - resolved MAR reviewed *From Cardiac standpoint, the pt is stable to d/c when his BP is within normal range; The pt will f/u with Dr Bliss' office within 2-3wks. Review of Systems - Review of Systems Constitutional: reports: no symptoms reported EENTM: reports: no symptoms reported Respiratory: reports: no symptoms reported Cardiac (ROS): reports: no symptoms reported ABD/GI: reports: no symptoms reported : reports: no symptoms reported Musculoskeletal: reports: no symptoms reported
[2017-04-04 16:21] VITALS: BP 162/76
--- NOTE | 2017-04-04 21:22 | PRG ---
DATE OF SERVICE: 04/04/2017 REFERRING PHYSICIAN: Dr. Bliss. SUBJECTIVE: Mr. De La Paz seems to be doing well. No further arrhythmias noted. No significant bra dycardia symptoms seen either. Heart rate is well controlled. He has mild congestion, which is imp roving. OBJECTIVE: VITAL SIGNS: Blood pressure is 157/73, heart rate 65, respiratory rate 18, temperature 97.9 degrees Fahrenheit. GENERAL: Alert and oriented man, in no apparent distress. NECK: Supple. Jugular veins not distended. CHEST: Coarse, no crackles. CARDIOVASCULAR: Heart sounds are regular to rate and rhythm. No murmur or gallop. ABDOMEN: Benign. Bowel sounds positive. EXTREMITIES: Lower extremities without edema, clubbing, or cyanosis. Pulses are adequate. NEUROLOGIC: Patient is nonfocal. MUSCULOSKELETAL: No joint swelling or deformities. SKIN: Without rash. DATABASE: The telemetry strips reveals sinus rhythm, sinus bradycardia with no ventricular arrhythm ias or atrial arrhythmias are documented. ASSESSMENT AND PLAN: 1. Mr. De La Paz is a pleasant 71-year-old man with a history of paroxysmal atrial fibrillation, cor onary artery disease, who underwent bypass surgery and maze procedure as well as left atrial appenda ge ligation procedure about 2 months ago. Since then he has been on amiodarone. He was admitted wi th nausea, vomiting, and diarrhea, which has gradually resolved. Also had an episode of polymorphic VT, which was in the setting of marked hypokalemia and hypomagnesemia. Hence he is now off amiodar one. Also, potassium and magnesium levels are well replaced. Hence the reversible factors leading to his polymorphic VT at this point, we do not deem him appropriate for ICD implantation. EP study would be also likely not very predictive. 2. He has got atrial arrhythmias still present on amiodarone washout, but not settled down as well. We will monitor from recurrence. 3. 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 4. Coronary artery disease, currently stable. 5. Mild bradycardia without symptoms, due to lingering amiodarone effect which I expect to improve. 6. Pulmonary disease/asthma, followed by Dr. Lazo. 7. Elevated BMI. Routine follow up in our office in 4-6 weeks.
== END 2017-04-04 17:17 | disposition home or self-care (01) | DRG 308 ==
LOC: ERS 15:42 → OBSVTOIN 18:02 → 2SW 18:02 → IMCU/EMU 03-30 04:03 → 2NO 04-02 12:51
PROVIDERS: ADMIT Internal Medicine; ATTEND Internal Medicine
DX: I47.2 Ventricular tachycardia (principal); J96.01 Acute respiratory failure with hypoxia; I24.8 Other forms of acute ischemic heart disease; I42.9 Cardiomyopathy, unspecified; E83.42 Hypomagnesemia; I11.0 Hypertensive heart disease with heart failure; I50.9 Heart failure, unspecified; A09 Infectious gastroenteritis and colitis, unspecified; N39.0 Urinary tract infection, site not specified; I48.0 Paroxysmal atrial fibrillation; R00.1 Bradycardia, unspecified; E86.0 Dehydration; I08.1 Rheumatic disorders of both mitral and tricuspid valves; E11.9 Type 2 diabetes mellitus without complications; I25.10 Atherosclerotic heart disease of native coronary artery without angina pectoris; Z95.1 Presence of aortocoronary bypass graft; J45.909 Unspecified asthma, uncomplicated; Z79.82 Long term (current) use of aspirin; Z79.4 Long term (current) use of insulin; E87.6 Hypokalemia; B96.1 Klebsiella pneumoniae [K. pneumoniae] as the cause of diseases classified elsewhere; T46.2X5A Adverse effect of other antidysrhythmic drugs, initial encounter; Z91.012 Allergy to eggs; E03.9 Hypothyroidism, unspecified; E78.2 Mixed hyperlipidemia
CPT/HCPCS: 36415; 36416; 70450; 71010; 71275; 76705; 80048; 80053; 80162; 81003; 81015; 82274; 82550; 82553; 83690; 83735; 84484; 85025; 85379; 87040; 87077; 87086; 87186; 93005; 93010; 93306; 94640; 94660; 96361; 96374; 96375; A4216; C9113; J0360; J0696; J1940; J2185; J2270; J2405; J2550; J2920; J3475; J7050; J7506; J7620; S0028

== ENCOUNTER 2017-05-21 11:39 | Observation (INO) | payer BC, MEDICARE ==
[2017-05-21 12:40] LABS: #Eosinphils 0.3 thou/uL (0.0-0.7); #Lymphocytes 0.9 thou/uL (1.20-3.40); #Monocytes 0.5 thou/uL (0.11-0.59); #Neutrophils 4.9 thou/uL (1.40-6.50); %Basophils 0.7 % (0.0-1.0); %Lymphocytes 14.1 % (21.0-51.0); %Monocytes 8.1 % (0.0-10.0); Hematocrit 33.5 % (42.0-52.0); Mean Platelet Volume 8.2 fL (7.4-10.4); Red Blood Cell (RBC) Count 4.12 mill/uL (4.70-6.10); White Blood Cell (WBC) Count 6.7 thou/uL (4.8-10.8)
[2017-05-21 13:08] LABS: Troponin I 0.032 ng/mL (< 0.028)
--- NOTE | 2017-05-21 13:10 | RAD ---
ONE VIEW CHEST: Comparison: 03-31-17 History: Chest pain. Difficulty breathing. FINDINGS: There are sternotomy wires. Heart is enlarged. Pulmonary vessels are within normal limits. Bibasilar pleural effusions with parenchymal changes in the lung bases, left greater than right. Adequate aerat ion of the upper lungs. No pneumothorax or osseous abnormality. IMPRESSION: Basilar pleural and parenchymal changes. Continued surveillance to ensure resolution is recommended. POS: [facility]
[2017-05-21 13:11] LABS: ALT (SGPT) 10 U/L (8-55); AST (SGOT) 10 U/L (5-34); Alkaline Phosphatase 92 U/L (40-150); Anion Gap 11 mmol/L (10-20); BUN (Urea Nitrogen) 5 mg/dL (8.4-25.7); Bilirubin, Total 0.8 mg/dL (0.2-1.2); CK (CPK) 46 U/L (30-200); Calc. Creatinine Clearance 0 mL/min (70-130); Calcium 8.1 mg/dL (7.8-10.44); Carbon Dioxide 28 mmol/L (23-31); Chloride 106 mmol/L (98-107); Estimated GFR-MDRD Greater than 90; Globulin 2.3 g/dL (2.4-3.5); Protein, Total 5.6 g/dL (5.8-8.1)
[2017-05-21 14:49] LABS: Magnesium 1.5 mg/dL (1.6-2.6); Phosphorus 2.5 mg/dL (2.3-4.7)
[2017-05-21] MEDS ORDERED: Potassium Chloride 20 MEQ TAB ONE (14:51)
--- NOTE | 2017-05-21 16:08 | ULT ---
BILATERAL LOWER EXTREMITY VENOUS DUPLEX EXAM: Deep veins of both lower extremities evaluated with ultrasound Doppler. Color Doppler with spectral analysis and compression studies performed. HISTORY: Shortness of breath. Elevated D-dimer. Dyspnea. FINDINGS: Deep veins of both lower extremities show normal compression and blood flow. No evidence of DVT iden tified. IMPRESSION: No evidence of lower extremity deep vein thrombosis. POS: [facility]
[2017-05-21] MEDS ORDERED: Magnesium Sulfate 2 GM/100 ML BAG ONE (16:13)
[2017-05-21 16:21] LABS: Troponin I 0.019 ng/mL (< 0.028)
--- NOTE | 2017-05-21 18:01 | HP ---
DATE OF ADMISSION: 05/21/2017 PRIMARY CARE PHYSICIAN: Elizabeth Medina M.D. PRIMARY SEISMOGRAPH SHOOTER: Ameena Bliss M.D. CHIEF COMPLAINT: Shortness of breath. HISTORY OF PRESENT ILLNESS: Patient is a 71-year-old male with chronic diastolic heart failure, esteban nary artery disease, who presented to the emergency room with above complaints. He was admitted at [facility] in March for urinary tract infection with polymorphic ventricular tachycardia secondar y to electrolyte disturbance and amiodarone therapy. Over the last 24 hours, the patient developed g radual worsening shortness of breath along with mild leg swelling. The shortness of breath was worse on lying down flat. He also had some cough productive of very small amount of thick phlegm. He fel t feverish, however, did not record his temperature. He denies any chest pain, palpitations, lighthe adedness, dizziness or syncope. No recent immobilization or travel reported. He is compliant with a ll of his medications. In the emergency room, his initial vital signs showed temperature 99 with respiration of 19, pulse ra te of 86, blood pressure of 133/58 with O2 saturation 95% on room air. His EKG showed sinus rhythm w ith left axis deviation with nonspecific ST-T wave changes in the lateral leads. His potassium was 3 .1 with magnesium of 1.5, which were replaced in the ER. His troponin was 0.032 with BNP of 891.5. His BNP last month was 460. He received aspirin with 2 grams magnesium and potassium chloride in the emergency room. PAST MEDICAL HISTORY: 1. Chronic diastolic heart failure. 2. History of polymorphic ventricular tachycardia secondary to electrolyte disturbance as well as am iodarone therapy in March of this year. 3. Coronary artery disease. 4. Asthma, followed by Dr. Lazo. PAST SURGICAL HISTORY: Coronary artery bypass grafting, bladder surgery. ALLERGIES: The patient is allergic to EGGS. CURRENT HOME MEDICATIONS: Patient does not remember any of his home medications. Accurate list of h ome medications will be obtained from the family later today. SOCIAL HISTORY: No smoking or drug use. He occasionally consumes alcohol. FAMILY HISTORY: Negative for diabetes and hypertension. REVIEW OF SYSTEMS: The following complete review of systems was negative, unless otherwise mentioned in the HPI or below: Constitutional: Weight loss or gain, ability to conduct usual activities. Sk in: Rash, itching. Eyes: Double vision, pain. ENT/Mouth: Nose bleeding, neck stiffness, pain, te nderness. Cardiovascular: Palpitations, dyspnea on exertion, orthopnea. Respiratory: Shortness of breath, wheezing, cough, hemoptysis, fever or night sweats. Gastrointestinal: Poor appetite, abdom inal pain, heartburn, nausea, vomiting, constipation, or diarrhea. Genitourinary: Urgency, frequenc y, dysuria, nocturia. Musculoskeletal: Pain, swelling. Neurologic/Psychiatric: Anxiety, depressio n. Allergy/Immunologic: Skin rash, bleeding tendency. PHYSICAL EXAMINATION: VITAL SIGNS: As discussed above. GENERAL: A 71-year-old male in no apparent distress at resting. HEENT: Head: Atraumatic, normocephalic. Sclerae are anicteric. Moist mucous membrane. No oral le michael. NECK: Supple, no JVD elevation noted. No carotid bruit. LUNGS: Showed scattered rales at bases. CARDIOVASCULAR: Heart S1, S2 present. Regular rate and rhythm. Healed midline scar from previous C ABG. No heaves or pulsation. ABDOMEN: Soft, nontender, bowel sounds present. EXTREMITIES: 2+ edema in bilateral lower extremities up to the knees. No calf tenderness. SKIN: Warm and dry. LYMPH NODES: No palpable lymph nodes in the neck. PERIPHERAL VASCULAR: Radial pulses palpable bilaterally. MUSCULOSKELETAL: No joint swelling or tenderness. LABORATORY AND X-RAY FINDINGS: As discussed above. Repeat troponin was negative. Theophylline leve l was 13.7. Sodium of 142 with creatinine 0.71. CBC showed WBC 6.7 with hemoglobin 10.5, platelet 1 63. EKG and chest x-ray by my review as discussed above. Chest x-ray was negative for infiltrate. It sh owed minimal pulmonary vascular congestion. IMPRESSION AND PLAN: 1. Shortness of breath secondary to acute on chronic diastolic heart failure exacerbation. 2. Electrolyte imbalance. The patient has hypokalemia and hypomagnesemia. 3. History of polymorphic ventricular tachycardia secondary to the amiodarone in March of this yea r. 4. Hypertension. 5. Coronary artery disease, status post coronary artery bypass grafting. 6. Mild decrease in left ventricular function. Ejection fraction in March was 45-50%. 7. Mild intermittent asthma, followed by Dr. Lazo. 8. Hyperlipidemia. PLAN: The patient will be monitored on the telemetry unit as a 23-hour observation. We will replace electrolytes. Gentle diuresis. Consult Cardiology, Dr. Bliss in a.m. We will resume home medicatio ns once confirmed. Fluid restriction at 2 liters a day. We will recheck labs in a.m. Resume other home medications once confirmed. Plan of care was discussed with the patient in detail. He stated understanding. We will set up with Heart Failure [facility] at discharge.
[2017-05-21] MEDS ORDERED: Ondansetron HCl/PF 4 MG/2 ML Vial IVP PRN (19:09)
[2017-05-21] MEDS ORDERED: Acetaminophen 325 MG TAB PO PRN ×2 (19:09→19:12)
[2017-05-21] MEDS ORDERED: Ondansetron ODT 4 MG TAB SL PRN (19:09)
[2017-05-21] MEDS ORDERED: Nitroglycerin 0.4 MG TAB (25 Tab Bottle) PO PRN (19:12)
[2017-05-21] MEDS ORDERED: Furosemide 20 MG/2 ML VIAL SLOW IVP SCH (19:12)
[2017-05-21] MEDS ORDERED: Senokot 8.6 MG TAB PO PRN (19:12)
[2017-05-21] MEDS ORDERED: hydrALAZINE 20 MG/ML VIAL SLOW IVP PRN (19:12)
[2017-05-21 19:19] VITALS: BMI 28.3
[2017-05-21 20:07] LABS: Troponin I 0.028 ng/mL (< 0.028)
[2017-05-21] MEDS: Famotidine 20 MG TAB PO SCH (21:09)
[2017-05-21] MEDS: Potassium Chloride 20 MEQ TAB PO SCH (21:09)
[2017-05-21] MEDS: Docusate 100 MG CAP PO SCH (21:09)
[2017-05-21] MEDS: Albuterol Sulfate 2.5 mg/3 ml Neb NEB PRN (21:41)
[2017-05-22 04:54] LABS: #Eosinphils 0.4 thou/uL (0.0-0.7); #Monocytes 0.5 thou/uL (0.11-0.59); %Basophils 0.4 % (0.0-1.0); %Eosinophils 7.4 % (0.0-10.0); %Lymphocytes 21.2 % (21.0-51.0); %Monocytes 9.9 % (0.0-10.0); Mean Platelet Volume 8.3 fL (7.4-10.4); Red Blood Cell (RBC) Count 3.68 mill/uL (4.70-6.10); White Blood Cell (WBC) Count 4.9 thou/uL (4.8-10.8)
[2017-05-22 05:27] LABS: Anion Gap 9 mmol/L (10-20); BUN (Urea Nitrogen) 5 mg/dL (8.4-25.7); BUN/Creatinine Ratio 7.04; Calc. Creatinine Clearance 102 mL/min (70-130); Calcium 7.8 mg/dL (7.8-10.44); Carbon Dioxide 27 mmol/L (23-31); Chloride 108 mmol/L (98-107); Estimated GFR-MDRD Greater than 90; Phosphorus 2.6 mg/dL (2.3-4.7)
[2017-05-22] MEDS: Furosemide 20 MG/2 ML VIAL SLOW IVP SCH ×2 (05:52→13:34)
[2017-05-22] MEDS: Albuterol Sulfate 2.5 mg/3 ml Neb NEB PRN (06:00)
[2017-05-22] MEDS ORDERED: Potassium Chloride 20 MEQ TAB PO SCH (08:00)
[2017-05-22] MEDS ORDERED: predniSONE 20 MG TAB PO SCH (09:15)
[2017-05-22] MEDS: Famotidine 20 MG TAB PO SCH ×2 (09:20→20:02)
[2017-05-22] MEDS: Aspirin 81 mg Enteric Coated Tablet PO SCH (09:20)
[2017-05-22] MEDS: Docusate 100 MG CAP PO SCH ×2 (09:20→20:02)
[2017-05-22] MEDS: Potassium Chloride 20 MEQ TAB PO SCH ×4 (09:20→20:02)
[2017-05-22] MEDS ORDERED: Lisinopril 20 MG TAB PO SCH (12:00)
[2017-05-22] MEDS ORDERED: Levothyroxine Sodium 25 MCG TAB PO SCH (12:00)
[2017-05-22] MEDS ORDERED: Doxazosin Mesylate 4 MG TAB PO SCH (12:00)
--- NOTE | 2017-05-22 14:17 | CON ---
DATE OF CONSULTATION: 05/22/2017 PRIMARY CARE PHYSICIAN: Dr. Elizabeth Medina PRIMARY CONTACT PERSON: Dr. Ameena Bliss REFERRING PHYSICIAN: Dr. Knapp REASON FOR CONSULTATION: Congestive heart failure. HISTORY OF PRESENT ILLNESS: Mr. De La Paz is a 71-year-old male with a significant history of coronary artery disease with CABG x3 in 01/2017, chronic diastolic dysfunction, diabetes and hypertension. About 3 days ago he started having shortness of breath which became worse. Therefore, the patient decided to present to his primary care doctor for further evaluation and treatment. His primary care doctor examined his heart rhythm with EKG which showed some elevation per the patient's report. The patient was instructed to present to [facility] by the patient's primary care doctor for further cardiac evaluation and treatment. At the emergency department the patient had another 12-lead EKG with similar result and the patient was told that the patient did not have any cardiac abnormalities. However, due to worsening of shortness of breath, the patient was admitted to the hospital for acute on chronic diastolic heart failure. The patient had a history of asthma and has used a nebulizer and inhalers for a few days, which have not improved the patient's symptoms. The patient denies chest pain or discomfort in his chest, palpitation or fluttering, nausea, vomiting or numbness in the left arm, dizziness or lightheadedness or any other cardiac complaints. The patient underwent CABG x3 with WHITTEN to LAD, SUAD to diagonal and RSV to OM and left artrial appendage ligation and Maze procedure in 01/2017. He has a history of postop atrial fibrillation which he converted back to sinus rhythm with medical treatment. The patient was hospitalized in 03/2017 due to dizziness and dehydration. During that hospitalization, the patient had polymorphic V-tach and his Amiodarone was held. The patient's last echocardiogram was in 03/2017, which shows EF of 45-50%, hypokinetic and moderate to severe left atrial enlargement, moderate right atrium enlargement, moderate mitral valve regurgitation, mild aortic valve regurgitation, moderate to severe tricuspid regurgitation and grade I diastolic dysfunction. PAST MEDICAL HISTORY: 1. Coronary artery disease. 2. Hypertension. 3. Postop atrial fibrillation. 4. History of polymorphic ventricular tachycardia and his Amiodarone was held at that time. 5. Dyslipidemia. 6. Diabetes type 2. 7. Hypothyroidism. 8. Asthma. PAST SURGICAL HISTORY: Coronary artery bypass graft x3 with left atrial appendage ligation and Maze procedure in 01/2017, pelvis fracture repair in 1967. FAMILY HISTORY: There is a significant family history of cancer in his paternal side, diabetes and high blood pressure in his maternal side. SOCIAL HISTORY: He is . He lives by himself. His sister lives close by. He has 1 daughter who lives and is well. He denies any tobacco or illicit drug abuse. He enjoys 1 one glass of wine or beer at the holiday season. ALLERGIES: He is allergic to EGGS. HOME MEDICATIONS: 500 mcg/50 mcg 1 puff twice a day, Tirosint 25 mcg once a day, Lantus per insulin protocol, atorvastatin 10 mg once a day, aspirin 81 mg once a day, tramadol 50 mg every 6 hours as needed, carvedilol 3.125 mg twice a day, amlodipine 5 mg once a day, metformin 750 mg 1 tablet twice a day, potassium chloride 20 mEq once a day, lisinopril 20 mg once a day, Doxazocin 8 mg once a day, furosemide 20 mg once a day. Theophylline 300 mg twice a day. REVIEW OF SYSTEMS: The following complete review of systems was negative, unless otherwise mentioned in the HPI or below. CONSTITUTIONAL: Weight loss or gain, sense of well-being, ability to conduct usual activities, exercise tolerance. SKIN: Rash, itching, change in hair growth or loss, nail changes, breast lumps , tenderness, swelling, nipple discharge. EYES: Vision change, double vision, tearing, blind spots, pain. He wears glasses for reading. HEENT: Headache, vertigo, lightheadedness, dizziness, nose bleed, nasal obstruction or discharge, dental difficulty, gingival bleeding, dentures, neck stiffness, pain, tenderness or masses in thyroid or other areas. CARDIOVASCULAR: Precordial pain, substernal distress, palpitations, syncope, orthopnea, nocturnal dyspnea, edema, cyanosis, heart murmur, varicosis, claudication. RESPIRATORY: Positive for shortness of breath and wheezing, but negative for stridor, cough, hemoptysis, fever or night sweats. GASTROINTESTINAL: Poor appetite, dysphagia, indigestion, abdominal pain, heartburn, eructation, nausea, vomiting, tenderness, constipation, or diarrhea, abnormal stool, blood in stool, recent change in the bowel habit. GENITOURINARY: Urgency, frequency, dysuria, nocturia, hematuria, polyuria, oliguria, unusual color of urine. MUSCULOSKELETAL: Pain, swelling, redness or heat of muscle or joint, limitation of motion, muscular weakness, atrophy, cramps. NEUROLOGIC: Conversion, seizure, paralysis, tremor, incoordination, difficulty with memory or speech. PSYCHIATRIC: Emotional problem, anxiety, depression, previous psychiatric care , unusual perception or hallucination. PHYSICAL EXAMINATION: VITAL SIGNS: Blood pressure is 160/70, heart rate 73 with sinus rhythm, respiratory rate 20, O2 sat 95% with room air, temperature 98.5. GENERAL: Well-developed, well-nourished without any acute distress. HEAD: Normocephalic, atraumatic. EYES: Extraocular muscle movement intact. ENT: Oral and nasal mucosa are moist without lesion. NECK: No JVD. Neck supple and normal range of motion. LUNGS: There is expiratory wheezing, but no rales or rhonchi noted. CARDIOVASCULAR: Regular rate and rhythm, normal S1, S2. There are no S3 or S4. No murmur, hives, thrill bruit or rub noted. There are 2+ pulses in the bilateral dorsal pedis pulse, posterior tibial, and popliteal. Carotid pulse present without bruit or thrill. No edema in the bilateral lower extremities. ABDOMEN: Soft, nontender to palpate, nondistended. Bowel sounds are present. MUSCULOSKELETAL: Able to move all extremities. No calf tenderness. SKIN: Warm and dry. No skin rash, lesion or bruise noted. NEUROLOGIC: Alert, oriented x4, awake. Normal affect, nonfocal. PSYCHIATRIC: Mood and affect normal. EKG: Unfortunately, there are no 12 lead EKG results from his primary care doctor's office or from the ER in his chart or record at this moment. The patient's telemetry records shows sinus rhythm with bundle sj block with heart rate around 70-80s, with no ST segment change or T-wave inversions; however, the patient has a history of 10 beats of ventricular tachycardia this morning. He was asymptomatic during the episode. The patient's chest x-ray on 05/21/2017 showing basilar pleural and parenchymal change, but no pneumothorax noted. The patient's venogram revealed no evidence of lower extremity deep venous thrombosis. LABORATORY: WBC 4.9, hemoglobin 9.4, hematocrit 30.0, platelets 153. D-dimer is 0.48. Sodium 140, potassium 3.5 which was 3.1 yesterday. BUN of 5, creatinine 0.71, glucose 85. AST 10, ALT 10, the patient's CK-MB is 2.0. Troponin is 0.032, 0.019, 0.028 and BNP is 891.5. IMPRESSION: 1. EKG change. The patient was instructed to present to [facility] by the patient's primary care doctor for some EKG changes. However, there are no EKG records from the patient's primary care doctors or the emergency department in his chart at this moment. The patient's current EKG from the telemetry records have showed no significant EKG changes except 10 beats of ventricular tachycardia this morning. At that time the patient was asymptomatic. We like to continue to monitor the patient on telemetry. 2. Acute on chronic diastolic heart failure. The patient's symptoms have improved with IV Lasix medication. We would like to refer the patient to [facility] for further treatment for his condition for chronic diastolic heart failure when he is ready to be discharged. 3. History of polymorphic ventricular tachycardia secondary to the amiodarone. We like to continue to monitor the patient on telemetry. 4. Coronary artery disease with history of coronary artery bypass graft with left atrial appendage regurgitation and maze procedure in 01/2017. The patient' s condition is stable at this moment. We like to continue to monitor. 5. Paroxysmal atrial fibrillation. Remains SR. We would like to continue to monitor the patient on telemetry. 6. Hypertension. The patient's blood pressure is well controlled with current medication. We like to continue to monitor. 7. Hyperlipidemia. We would like to resume the patient's statin medication when patient is stable. 8. Diabetes type 2. He is not on medication right now, we recommend him to resume his home medications for his diabetes medications. 9. History of asthma. He is on a breathing treatment at this moment, which well controlled for this patient and also he is on the prednisone taper for asthma flare which is managed by his primary care doctor. Thank you very much for allowing Cardiology Service to participate in care of the patient. We will follow along with the patient care team and make further recommendations as appropriate. GUILLERMO
--- NOTE | 2017-05-22 16:40 | PDOC.PN ---
- Subjective Encounter Start Date: 05/22/17 Encounter Start Time: 15:30 Patient seen and examined. SOB improving - WEBSTER +. No overnight events - Objective Resuscitation Status: Resuscitation Status FULL:Full Resuscitation MAR Reviewed: Yes Vital Signs & Weight: Vital Signs (12 hours) Temp Pulse Resp BP Pulse Ox 05/22/17 15:04 83 160/73 H 05/22/17 13:18 73 14 94 L 05/22/17 11:20 98.2 F 84 20 173/73 H 94 L 05/22/17 11:01 72 16 94 L 05/22/17 07:57 98.5 F 73 20 160/70 H 95 05/22/17 07:56 98.5 F 73 20 05/22/17 06:03 97 05/22/17 06:02 97 05/22/17 06:00 79 16 97 Weight Weight 166 lb 3.2 oz I&O: 05/21/17 05/22/17 05/23/17 06:59 06:59 06:59 Intake Total 520 590 Output Total 850 575 Balance -330 15 Result Diagrams: 05/22/17 04:09 05/22/17 04:09 Additional Labs: Accuchecks 05/22/17 05/22/17 05/21/17 11:26 05:51 20:32 POC Glucose 171 H 95 100 EKG Reviewed by me: Yes (Tele SR) Phys Exam - Physical Examination Constitutional: NAD Respiratory: no wheezing, no rhonchi Scat rales at bases, Symmetrical Cardiovascular: RRR, no rub Gastrointestinal: soft, non-tender, no distention, positive bowel sounds Musculoskeletal: edema present (B/L LE - trace) Neurological: non-focal, normal sensation, moves all 4 limbs Psychiatric: normal affect, A&O x 3 Dx/Plan - Plan DVT proph w/SCDs IMPRESSION: 1. Acute on chronic diastolic heart failure exacerbation. improving 2. Electrolyte imbalance.(hypokalemia / hypomagnesemia) 3. History of polymorphic ventricular tachycardia secondary to the amiodarone in March of this year. 4. Hypertension. - uncontrolled 5. Coronary artery disease, status post coronary artery bypass grafting. 6. Mild decrease in left ventricular function - 45-50%. 7. Mild intermittent asthma with exacerbation 8. Hyperlipidemia. PLAN: * Cont Lasix IV 20 mg BID * AM labs * Cardiology input appreciated * Add low dose steroids * Monitor BP closely * Nebs PRN Review of Systems - Review of Systems Constitutional: negative: Fever, Chills, Sweats, Weakness, Malaise, Other Respiratory: Cough, Dry, SOB with Excertion, Wheezing. negative: Shortness of Breath, Hemoptysis, Pleuritic Pain, Sputum Cardiovascular: Orthopnea, Edema. negative: Chest Pain, Palpitations, Paroxysmal Noc. Dyspnea, Light Headedness Gastrointestinal: negative: Nausea, Vomiting, Abdominal Pain, Diarrhea, Constipation, Melena, Hematochezia, Other - Medications/Allergies Allergies/Adverse Reactions: Allergies Allergy/AdvReac Type Severity Reaction Status Date / Time egg Allergy diarrhea, Verified 01/30/17 10:00 vomiting No Known Drug Allergies Allergy Verified 01/30/17 10:00 Medications: Current Medications Acetaminophen (Tylenol) 650 mg PO Q4H PRN PRN Reason: Headache/Fever or Pain Albuterol Sulfate (Ventolin) 2.5 mg NEB QIDPRN PRN PRN Reason: Dyspnea/Wheezing/SOB Last Admin: 05/22/17 06:00 Dose: 2.5 mg Albuterol/Ipratropium (Duoneb) 3 ml NEB [id number] PRN PRN Reason: SOB &/or Wheezing Last Admin: 05/22/17 13:18 Dose: 3 ml Amlodipine Besylate (Norvasc) 5 mg PO DAILY [facility] Aspirin (Ecotrin) 81 mg PO DAILY [facility] Last Admin: 05/22/17 09:20 Dose: 81 mg Atorvastatin Calcium (Lipitor) 10 mg PO HS [facility] Carvedilol (Coreg) 3.125 mg PO BID-[facility] Docusate Sodium (Colace) 100 mg PO BID [facility] Last Admin: 05/22/17 09:20 Dose: 100 mg Doxazosin Mesylate (Cardura) 16 mg PO QAM [facility] Famotidine (Pepcid) 20 mg PO BID [facility] Last Admin: 05/22/17 09:20 Dose: 20 mg Furosemide (Lasix) 20 mg SLOW IVP 0600,1400 [facility] Last Admin: 05/22/17 13:34 Dose: 20 mg Hydralazine HCl (Apresoline) 10 mg SLOW IVP Q4H PRN PRN Reason: SBP Greater Than 180 Levothyroxine Sodium (Synthroid) 25 mcg PO 0600 [facility] Lisinopril (Zestril) 20 mg PO QAM [facility] Mometasone Furoate/Formoterol Fumar (Dulera 200 Mcg/5 Mcg Inhaler) 2 puff INH BID-RT [facility] Nitroglycerin (Nitrostat) 0.4 mg PO Q5MIN PRN PRN Reason: Chest Pain Potassium Chloride (K-Dur) 20 meq PO 2100 [facility] Last Admin: 05/21/17 21:09 Dose: 20 meq Potassium Chloride (K-Dur) 20 meq PO TID-WM [facility] Stop: 05/23/17 08:01 Last Admin: 05/22/17 13:34 Dose: 20 meq Prednisone (Prednisone) 20 mg PO BID-WM [facility] Senna (Senokot) 2 tab PO HSPRN PRN PRN Reason: Constipation Sodium Chloride (Flush - Normal Saline) 10 ml IVF PRN PRN PRN Reason: Saline Flush Last Admin: 05/22/17 05:51 Dose: 10 ml Theophylline (Theophylline Er) 300 mg PO DAILY [facility]
[2017-05-22] MEDS: predniSONE 20 MG TAB PO SCH (17:22)
[2017-05-22] MEDS: Carvedilol 3.125 MG TAB PO SCH (17:22)
[2017-05-22] MEDS: Mometasone/Formoterol 120 PUFF INHALER INH SCH (19:51)
[2017-05-22] MEDS ORDERED: Dextrose 5% in Water 1,000 ML IV PRN (20:50)
[2017-05-22] MEDS ORDERED: Dextrose 50% Abboject 50 ML SYRINGE IVP PRN (20:50)
[2017-05-22] MEDS ORDERED: Enoxaparin Sodium 40 MG/0.4 ML SYRINGE SC SCH (21:00)
[2017-05-22] MEDS ORDERED: Atorvastatin Calcium 10 MG TAB PO SCH (21:00)
[2017-05-22] MEDS: Insulin Regular 300 UNITS/3 ML VIAL SC PRN (21:31)
[2017-05-22] MEDS: PRE FILLED SC SCH (21:31)
[2017-05-22] MEDS: INSULIN DETEMIR SC SCH (21:31)
--- NOTE | 2017-05-23 01:02 | ADD-CON ---
ADDENDUM: DATE OF CONSULTATION: 05/22/2017 DATE OF ADMISSION: 05/21/2017 INDICATION FOR CONSULTATION: Congestive heart failure. HISTORY OF PRESENT ILLNESS: Mr. De La Paz is a very unfortunate 71-year-old gentleman who recently un derwent bypass surgery back in 01/2017. He also has a history of chronic diastolic dysfunction and h ypertension. He became more short of breath at home. He eventually was seen by the primary care coleen quinones in the emergency room later as he was sent to the emergency room due to the abnormality noted on EKG, this has actually remained stable. He has had no complaints of chest discomfort. His last e chocardiogram showed an ejection fraction of 45% to 50%, but he did have evidence of diastolic dysfun ction. He has also recently had a hospitalization back in March for some polymorphic ventricular t achycardia. This has since resolved. He has been doing relatively stable at home. He did have a hi story also of some postoperative atrial fibrillation and hypertension. He has other multiple medical problems. Relatively, he has been doing quite well since being in the hospital, he has undergone di uresis and is feeling much better, but blood pressure still remains somewhat elevated. Otherwise, he is having no significant complaints. He did have about 10 beats of ventricular tachycardia earlier today, but remained asymptomatic. He has no evidence of lower extremity DVTs and had no other signif icant complaints and is feeling better since he has undergone some diuresis. His potassium was sligh tly decreased yesterday within normal limits, today at 3.5, otherwise he has no complaints except for what is noted in the history of present illness and this has improved since being diuresed. PHYSICAL EXAMINATION: CHEST: I have seen the patient, his chest at this time is actually clear to auscultation except for some decreased breath sounds in the bases. CARDIOVASCULAR: Reveals a regular rate and rhythm. He does have a systolic murmur at the apex. ABDOMEN: Shows obesity with positive bowel sounds. EXTREMITIES: Show no significant clubbing or cyanosis. NEUROLOGIC: The patient is fully intact. IMPRESSION: 1. As above, by the nurse practitioner, he does have acute on chronic diastolic heart failure, which is improved after diuresis. We will continue to monitor his heart failure with some mild diuresis, being careful not to over diurese the patient. 2. History of polymorphic ventricular tachycardia due to amiodarone. We will continue to monitor th e patient very carefully. 3. History of coronary artery disease. He is stable after bypass surgery. He also had atrial fibri llation, underwent a maze procedure. He continues to appear to be in sinus rhythm. 4. Hypertension. This will need to be better controlled prior to discharge. 5. Diabetes. This is to be dealt with primary care service Otherwise, I would agree with the asses sment and plan by the nurse practitioner.
[2017-05-23 05:12] LABS: Anion Gap 9 mmol/L (10-20); BUN (Urea Nitrogen) 10 mg/dL (8.4-25.7); BUN/Creatinine Ratio 12.35; Calc. Creatinine Clearance 91 mL/min (70-130); Calcium 8.6 mg/dL (7.8-10.44); Carbon Dioxide 25 mmol/L (23-31); Chloride 109 mmol/L (98-107); Estimated GFR-MDRD Greater than 90; Magnesium 2.1 mg/dL (1.6-2.6); Phosphorus 2.7 mg/dL (2.3-4.7)
[2017-05-23] MEDS: Insulin Regular 300 UNITS/3 ML VIAL SC PRN (05:23)
[2017-05-23] MEDS: Furosemide 20 MG/2 ML VIAL SLOW IVP SCH (05:23)
[2017-05-23] MEDS ORDERED: Levothyroxine Sodium 25 MCG TAB PO SCH (06:00)
[2017-05-23] MEDS: Mometasone/Formoterol 120 PUFF INHALER INH SCH (07:13)
[2017-05-23] MEDS: Potassium Chloride 20 MEQ TAB PO SCH (08:31)
[2017-05-23] MEDS: PRE FILLED SC SCH (08:32)
[2017-05-23] MEDS: Docusate 100 MG CAP PO SCH (08:32)
[2017-05-23] MEDS: Carvedilol 3.125 MG TAB PO SCH (08:32)
[2017-05-23] MEDS: Famotidine 20 MG TAB PO SCH (08:32)
[2017-05-23] MEDS: predniSONE 20 MG TAB PO SCH (08:32)
[2017-05-23] MEDS: INSULIN DETEMIR SC SCH (08:32)
[2017-05-23] MEDS: Aspirin 81 mg Enteric Coated Tablet PO SCH (08:32)
[2017-05-23] MEDS ORDERED: Doxazosin Mesylate 4 MG TAB PO SCH (09:00)
[2017-05-23] MEDS ORDERED: Amlodipine 5 MG TAB PO SCH (09:00)
[2017-05-23] MEDS ORDERED: Lisinopril 20 MG TAB PO SCH (09:00)
--- NOTE | 2017-05-23 09:14 | PDOC.CTH ---
Cardiology Progress Note - Subjective The pt seen and examined. No overnight events. No cardiac complaints. He still has intermittent cough; however, he reported that he feels much better after he started taking Steroid PO for asthma. - Objective Vital Signs Temp Pulse Resp BP Pulse Ox 05/23/17 08:00 98.0 F 72 16 161/70 H 97 05/23/17 07:59 98.0 F 72 16 05/23/17 07:13 71 16 99 05/23/17 03:50 97.3 F L 66 18 160/69 H 96 Weight 168 lb 12.8 oz 05/22/17 05/23/17 05/24/17 06:59 06:59 06:59 Intake Total 520 830 Output Total 850 950 450 Balance -330 -120 -450 - Physical Examination General/Neuro: alert & oriented x3 Neck: no JVD present Lungs: CTA Heart: RRR Abdomen: soft Extremities: other: (No edema) - Telemetry Telemetry Rhythm: SR - Labs Result Diagrams: 05/22/17 04:09 05/23/17 04:20 Troponin/CKMB CK-MB (CK-2) 2.0 ng/mL (0-6.6) 05/21/17 12:29 Troponin I 0.028 ng/mL (< 0.028) 05/21/17 19:15 - Assessment/Plan 1. Acute on chronic diastolic heart failure exacerbation - improving with diuretic; cont. monitor 2. Hypertension. - Stable with current medication; Lisinopril 20mg daily was started from yesterday. cont. monitor 3. CAD with Hx of CABG x3 with NOEL ligation and MAZE procedure in 01/2017 - stable; cont. monitor 4. History of polymorphic ventricular tachycardia secondary to the amiodarone in March of this year - remains in SR. cont. monitor on tele 5. Hyperlipidemia - on Statin 6. Mild intermittent asthma with exacerbation - improving with Steroid taper; managed by PCP 7. DM type 2 - on ACHS BG check with SS insulin; managed by PCP 8. Paroxysmal Afib - Remains in SR on tele MAR Reviewed *From Cardiac standpoint, the pt is stable to be d/tobi home when his BP is stable this AM. The pt will f/u with Dr Bliss' office larissahtin 2-4wks. The pt was already referred to CHF clinic for chronic diastolic HF. Thank you very much for cardiology consult Review of Systems - Review of Systems Constitutional: reports: no symptoms reported EENTM: reports: no symptoms reported Respiratory: reports: see HPI Cardiac (ROS): reports: no symptoms reported ABD/GI: reports: no symptoms reported : reports: no symptoms reported Musculoskeletal: reports: no symptoms reported Skin: reports: no symptoms reported Neurological: reports: no symptoms reported
[2017-05-23 11:08] VITALS: BP 155/72; TEMP 98.4
--- NOTE | 2017-05-23 11:52 | PDOC.PN ---
- Subjective Encounter Start Date: 05/23/17 Encounter Start Time: 07:20 Subjective: breathing better, still has cough and wants his mucinex -: no chest pain or palp - Objective Resuscitation Status: Resuscitation Status FULL:Full Resuscitation MAR Reviewed: Yes Vital Signs & Weight: Vital Signs (12 hours) Temp Pulse Resp BP Pulse Ox 05/23/17 11:07 98.4 F 76 20 155/72 H 97 05/23/17 08:00 98.0 F 72 16 161/70 H 97 05/23/17 07:59 98.0 F 72 16 05/23/17 07:13 71 16 99 05/23/17 03:50 97.3 F L 66 18 160/69 H 96 Weight Weight 168 lb 12.8 oz I&O: 05/22/17 05/23/17 05/24/17 06:59 06:59 06:59 Intake Total 520 830 Output Total 850 950 450 Balance -330 -120 -450 Result Diagrams: 05/22/17 04:09 05/23/17 04:20 Additional Labs: Accuchecks 05/23/17 05/23/17 05/22/17 10:49 04:20 20:36 POC Glucose 128 H 220 H 305 H 05/22/17 16:46 POC Glucose 172 H Phys Exam - Physical Examination HEENT: PERRLA, moist MMs Neck: no JVD, supple Respiratory: no wheezing, no rales rhonchi+ Cardiovascular: RRR, no significant murmur Gastrointestinal: soft, non-tender, positive bowel sounds Musculoskeletal: no edema, pulses present Neurological: non-focal, moves all 4 limbs Psychiatric: A&O x 3 Dx/Plan (1) Asthma Code(s): J45.909 - UNSPECIFIED ASTHMA, UNCOMPLICATED Status: Chronic Qualifiers: Asthma severity: moderate Asthma complication type: with acute exacerbation (2) CHF (congestive heart failure) Code(s): I50.9 - HEART FAILURE, UNSPECIFIED Status: Acute Qualifiers: Congestive heart failure type: combined Comment: with mild exacerbation, resolving (3) CAD (coronary artery disease) Code(s): I25.10 - ATHSCL HEART DISEASE OF [place] CORONARY ARTERY W/O ANG PCTRS Status: Chronic Qualifiers: Coronary Disease-Associated Artery/Lesion type: bypass graft [place] vs. transplanted heart: [place] heart Associated angina: without angina Qualified Code(s): I25.810 - Atherosclerosis of coronary artery bypass graft(s) without angina pectoris (4) DM2 (diabetes mellitus, type 2) Status: Chronic Qualifiers: Diabetes mellitus complication status: with circulatory complication Diabetes mellitus complication detail: with other circulatory complications Diabetes mellitus terminal block assembler insulin use: without nursing home use Qualified Code( s): E11.59 - Type 2 diabetes mellitus with other circulatory complications (5) HLD (hyperlipidemia) Code(s): E78.5 - HYPERLIPIDEMIA, UNSPECIFIED Status: Chronic Qualifiers: Hyperlipidemia type: unspecified Qualified Code(s): E78.5 - Hyperlipidemia , unspecified (6) HTN (hypertension) Code(s): I10 - ESSENTIAL (PRIMARY) HYPERTENSION Status: Chronic Qualifiers: Hypertension type: essential hypertension Qualified Code(s): I10 - Essential (primary) hypertension (7) Chronic anemia Code(s): D64.9 - ANEMIA, UNSPECIFIED Status: Chronic - Plan hemostable -: dc pt home -: meds faxed to pharmacy -: tapering prednisone * .
--- NOTE | 2017-05-23 20:10 | DIS ---
DATE OF ADMISSION: 05/21/2017 DATE OF DISCHARGE: 05/23/2017 DISCHARGE DISPOSITION: To home. PRIMARY DISCHARGE DIAGNOSES: Acute on chronic mild congestive heart failure exacerbation, resolving; acute asthma exacerbation, resolving. SECONDARY DISCHARGE DIAGNOSES: Coronary artery disease, diabetes mellitus type 2, hypertension, trouble locater pasquale anemia, dyslipidemia. PROCEDURES DONE DURING HOSPITALIZATION: Lower extremity venous Doppler done showed no evidence of DV T. Chest x-ray done showed mild pulmonary vascular congestion. H&H 9 and 30, platelet count 153. T roponin first set was indeterminate at 0.03, subsequent two sets were negative. CK-MB 2.0. BNP 891, albumin is 3.3. Theophylline levels were 13.7. INPATIENT CONSULTS: Dr. Bliss for Cardiology. DISCHARGE PLAN: Patient is to follow up with primary care physician in [address] Bliss in 2-3 we eks. BRIEF COURSE DURING HOSPITALIZATION: Patient initially came to ER with complaints of shortness of br eath. He is found to be in mild to moderate asthma exacerbation along with mild CHF exacerbation wit h diastolic dysfunction. He has had consultation with Dr. Bliss for Cardiology. Initial set of tropo yogi was indeterminate, but the subsequent two sets have been negative. His breathing has stabilized and Mr. De La Paz is ambulating in the room. He is hemodynamically stable. He was gently diuresed du ring his stay along with IV steroids and nebulization. He has done remarkably well with the above me asures and will be shortly discharged home. He has been cleared by Cardiology for discharge. Mr. Cruz will be placed on tapering prednisone starting at 10 mg. Please see a face to face documentat ion on [facility] for the day of discharge.
--- NOTE | 2017-06-07 13:13 | EKG ---
Test Reason : ABNORMAL EKG Blood Pressure : / mmHG Vent. Rate : 085 BPM Atrial Rate : 085 BPM P-R Int : 000 ms QRS Dur : 136 ms QT Int : 430 ms P-R-T Axes : 000 -32 035 degrees QTc Int : 511 ms Normal sinus rhythm Left axis deviation Non-specific intra-ventricular conduction block Cannot rule out Anterior infarct , age undetermined Abnormal ECG Confirmed by JOCELYN CARTER ([id number]), editor newspaper HENRY BRENNAN ([id number]) on 06/07/2017 1:12:45 PM Referred By: Confirmed By:JOCELYN CARTER
== END 2017-05-23 12:20 | disposition home or self-care (01) ==
LOC: ERS 11:39 → 2SW 16:15
PROVIDERS: ADMIT Internal Medicine; ATTEND Internal Medicine
DX: I11.0 Hypertensive heart disease with heart failure (principal); I50.33 Acute on chronic diastolic (congestive) heart failure; J45.901 Unspecified asthma with (acute) exacerbation; E11.9 Type 2 diabetes mellitus without complications; I25.10 Atherosclerotic heart disease of native coronary artery without angina pectoris; D64.9 Anemia, unspecified; E78.5 Hyperlipidemia, unspecified; Z91.012 Allergy to eggs; Z79.899 Other long term (current) drug therapy; Z95.1 Presence of aortocoronary bypass graft; Z98.890 Other specified postprocedural states
CPT/HCPCS: 36415; 36416; 71010; 80053; 80069; 80198; 82553; 83735; 83880; 84100; 84484; 85025; 85379; 93005; 93798; 93970; 94640; 94760; 96365; 96375; 96376; G0378; J1815; J1940; J3475; J7506; J7611; J7620

== ENCOUNTER 2017-07-08 18:06 | Inpatient (IN) | payer BC, MEDICARE ==
[~2017-07-08 18:06] MED LIST: Heparin 1,000 UNITS/ML VIAL ONE
[2017-07-08 18:55] VITALS: BMI 28.7
[2017-07-08] MEDS ORDERED: Sodium Chloride 0.9% 1,000 ML IV SCH (22:00)
[2017-07-08 22:54] LABS: #Eosinphils 0.2 thou/uL (0.0-0.7); #Lymphocytes 1.7 thou/uL (1.20-3.40); #Monocytes 0.4 thou/uL (0.11-0.59); #Neutrophils 4.2 thou/uL (1.40-6.50); %Basophils 0.7 % (0.0-1.0); %Eosinophils 3.4 % (0.0-10.0); %Lymphocytes 25.5 % (21.0-51.0); %Neutrophils 64.4 % (42.0-75.0); Hemoglobin 5.4 g/dL (14.0-18.0); Mean Corpuscular Hemoglobin 26.5 pg (27.0-31.0); Mean Corpuscular Volume 80.4 fl (80.0-94.0); Mean Platelet Volume 8.5 fL (7.4-10.4); Platelet Count 160 thou/uL (130-400); RBC Distribution Width 15.1 % (11.5-14.5); Red Blood Cell (RBC) Count 2.03 mill/uL (4.70-6.10); White Blood Cell (WBC) Count 6.5 thou/uL (4.8-10.8)
[2017-07-08 23:10] LABS: ALT (SGPT) 7 U/L (8-55); AST (SGOT) 7 U/L (5-34); Alkaline Phosphatase 42 U/L (40-150); Anion Gap 13 mmol/L (10-20); BUN (Urea Nitrogen) 18 mg/dL (8.4-25.7); Bilirubin, Total 0.2 mg/dL (0.2-1.2); Calc. Creatinine Clearance 87 mL/min (70-130); Calcium 8.1 mg/dL (7.8-10.44); Carbon Dioxide 25 mmol/L (23-31); Chloride 106 mmol/L (98-107); Estimated GFR-MDRD Greater than 90; Globulin 1.7 g/dL (2.4-3.5); Glucose 207 mg/dL (83-110); Potassium 3.6 mmol/L (3.5-5.1); Protein, Total 4.7 g/dL (5.8-8.1); Sodium 140 mmol/L (136-145)
[2017-07-09] MEDS: Pantoprazole 80 MG in Sodium Chloride 0.9% 100 ML IVP SCH ×3 (01:26→20:06)
--- NOTE | 2017-07-09 01:37 | HP ---
CHIEF COMPLAINT: Black stool. HISTORY OF PRESENT ILLNESS: This is a 71-year-old morbidly obese white male with a known history of a CABG done 1 year ago in January done by Dr. Boggs and the patient is a known patient to Dr. Bliss. T he patient has been on aspirin 81 mg daily for the past few days. He was noticing black stools since Saturday associated with maroon-colored stools. He denied having any abdominal pain. Denied having any nausea, vomiting, diarrhea or constipation. He denied having any dizziness or any chest pains. Patient denied taking any NSAIDs or any history of alcohol. Patient denied having any previous hist ory of GI bleeds in the past. He does see Dr. Nicole for his regular GI symptoms and he also had a co lonoscopy last July upper gastrointestinal and lower GI and there was no evidence of any bleed an d the colonoscopy and EGD was for screening purpose. Patient is seen today as a direct admit from [facility] physician because of the black stools, his hemoglobin was 6.8 and he would be receiving 1 unit of blood transfusion. PAST MEDICAL HISTORY: 1. CABG. 2. History of asthma. 3. History of chronic diastolic heart failure, history of coronary artery disease. 4. History of CABG. PAST SURGICAL HISTORY: 1. Patient has CABG. 2. Bladder surgery. ALLERGIES: Patient is allergic to EGGS. SOCIAL HISTORY: The patient is not a nonsmoker. No history of alcohol or history of illicit drug us e. FAMILY HISTORY: Negative for any hypertension or diabetes. REVIEW OF SYSTEMS: All 12 systems are reviewed with the patient thoroughly and found to be negative except the ones described in the HPI. The following complete review of systems was negative, unless otherwise mentioned in the HPI or below: Constitutional: Weight loss or gain, sense of well-being, ability to conduct usual activities, exerc ise tolerance. Skin/Breast: Rash, itching, changes in hair growth or loss, nail changes, breast lum ps, tenderness, swelling, nipple discharge. Eyes: Vision, double vision, tearing, blind spots, pain . ENT/Mouth: Headaches (location, time of onset, duration, precipitating factors), vertigo, lightheadedness, injury. Vision, double vision, tearing, blind spots, pain, nose bleeding, colds, obstruction, discharge, dental difficulties, gingival bleeding, dentures, neck stiff ness, pain, tenderness, masses in thyroid or other areas. Cardiovascular: Precordial pain, substern al distress, palpitations, syncope, dyspnea on exertion, orthopnea, nocturnal paroxysmal dyspnea, annalee ma, cyanosis, hypertension, heart murmurs, varicosities, phlebitis, claudication. Respiratory: Pain , shortness of breath, wheezing, stridor, cough, hemoptysis, fever or night sweats. Gastrointestinal : Poor appetite, dysphagia, indigestion, abdominal pain, heartburn, eructation, nausea, vomiting, he matemesis, jaundice, constipation, or diarrhea, abnormal stools (mitali-colored, tarry, bloody, greasy, foul smelling), flatulence, hemorrhoids, recent changes in bowel habits. Genitourinary: Urgency, f requency, dysuria, nocturia, hematuria, polyuria, oliguria, unusual (or change in) color of urine, st ones, hesitancy, change in size of stream, dribbling, acute retention or incontinence, libido, potenc y. Musculoskeletal: Pain, swelling, redness or heat of muscles or joints, limitation, of motion, muscul ar weakness, atrophy, cramps. Neurologic/Psychiatric: Convulsions, paralyses, tremor, incoordinatio n, parasthesias, difficulties with memory of speech, sensory or motor disturbances, or muscular coord ination (ataxia, tremor), emotional problems, anxiety, depression, previous psychiatric care, unusual perceptions, hallucinations. Allergy/Immunologic: Skin rash, anemia, bleeding tendency, polydipsia, polyuria, intolerance to hea t or cold. HOME MEDICATIONS: 1. Albuterol inhaler. 2. Albuterol nebulizer treatments. 3. Amlodipine 5 mg daily. 4. Aspirin 81 mg daily. 5. Carvedilol 3.125 mg p.o. daily. 6. Ferrous sulfate 325 mg p.o. daily. 7. Fluticasone. 8. Lasix 20 mg p.o. daily. 9. Insulin Glargine 1000 units, 17 units subcu b.i.d. 10. Levothyroxine 25 mcg daily. 11. Lisinopril 20 mg daily. 12. Metformin 750 mg daily. 13. Potassium chloride 20 mEq daily. 4. Theophylline 300 mg 1 tablet p.o. daily. PHYSICAL EXAMINATION: VITAL SIGNS: Blood pressures are 132/62, heart rate is 83, respiration rate 18, saturation 94%. GENERAL: The patient is moderately built and moderately nourished, does not appear to be in acute di stress at this time. Alert, oriented x3. HEENT: Atraumatic, normocephalic, PERRLA. Extraocular movements were intact. Oral mucosa is pink a nd moist. CARDIOVASCULAR: S1, S2 normal. No murmurs, rubs or gallops. LUNGS: Bilateral air entry was equal. No wheezing, no crackles. ABDOMEN: Soft, nontender, no guarding, no rebound tenderness. Bowel sounds normal. MUSCULOSKELETAL: No calf tenderness. No pedal edema. EXTREMITIES: No joint tenderness, no joint swelling. SKIN: No cyanosis, no erythema, no rash, no pallor. CENTRAL NERVOUS SYSTEM: Cranial nerve examination II-XII intact. No focal deficits were noted. LABORATORY DATA: Patient is a direct admit, so no new labs are done. The initial CBC when patient c sheri in was 6.8. ASSESSMENT AND PLAN: 1. Acute upper gastrointestinal bleed. 2. Type 2 diabetes mellitus. 3. Hypertension. 4. Coronary artery disease with coronary artery bypass graft. 5. Chronic asthma. PLAN: 1. Plan is to keep the patient n.p.o. at this time. We will consult GI, Dr. Bell who is region manager. Patient has persistent black stools. We will do a screening stool occult blood test and do a repeat CBC today and will plan for 1 unit of packed red blood cells at this time and closely monitor for any volume overload state. We will start the patient on Protonix drip as per protocol. 2. Patient has chronic asthma. No evidence of any exacerbation. We will continue the patient's deejay e medication with nebulizer treatments every 4 hours. 3. Patient has type 2 diabetes mellitus. We will hold off on the insulin at this time. We will onl y give once-a-day insulin as the patient will be n.p.o. today and we will start the insulin from thomas [facility]. We will check for sliding scale insulin. 4. Hypertension, well controlled. We will hold off on the blood pressure medications at this time b ecause of the acute gastrointestinal bleed. 5. History of coronary artery disease. Patient is on aspirin. We will hold off on aspirin and need to consult Dr. Bliss if it is okay to hold aspirin or to use any alternate medication because of the GI bleed. The patient may need to be on Plavix because of the GI irritation, but I would have discus michael with Dr. Cross. 6. Deep venous thrombosis prophylaxis. SCDs. Dictating physician, Reji Heard, spent 75 minutes with this patient.
[2017-07-09] MEDS: Insulin Detemir 100 UNITS/ML 17 UNITS in Pre-Filled Syringe 1 EACH SC SCH (07:14)
[2017-07-09] MEDS ORDERED: INSULIN GLARGINE 17 UNIT SC SCH (07:30)
--- NOTE | 2017-07-09 07:32 | CT ---
PRELIMINARY REPORT/[facility]/EMERGENCY AFTER HOURS PROCEDURE: EXAM: CT Abdomen and Pelvis Without Intravenous Contrast EXAM DATE/TIME: Exam ordered 07/09/2017 12:23 AM CLINICAL HISTORY: 71 years old, male; Signs and symptoms; Other: Bloody stools; Patient HX: Pt C/O having bloody stools . Denies abdominal pain, denies nausea or vomiting. No prior surgical HX. TECHNIQUE: Axial computed tomography images of the abdomen and pelvis without intravenous contrast. Coronal reformatted images were created and reviewed. COMPARISON: No relevant prior studies available. FINDINGS: Lower thorax: Small bilateral pleural effusions. Trace pericardial effusion. Cardiomegaly. ABDOMEN: Liver: Unremarkable. Gallbladder and bile ducts: Unremarkable. No calcified stones. No ductal dilation. Pancreas: Unremarkable. No ductal dilation. Spleen: Splenomegaly. Adrenals: Left adrenal adenoma. Kidneys and ureters: Unremarkable. No obstructing stones. No hydronephrosis. Stomach and bowel: Colonic diverticulosis. No diverticulitis. No obstruction. Appendix: Normal appendix. PELVIS: Bladder: Unremarkable. No stones. Reproductive: Unremarkable as visualized. ABDOMEN and PELVIS: Intraperitoneal space: Unremarkable. No free air. No significant fluid collection. Bones/joints: No acute fracture. No dislocation. Soft tissues: Unremarkable. Vasculature: Unremarkable. No abdominal aortic aneurysm. Lymph nodes: Unremarkable. No enlarged lymph nodes. IMPRESSION: 1. Small bilateral pleural effusions. 2. Trace pericardial effusion. 3. Splenomegaly. Thank you for allowing us to participate in the care of your patient. Dictated and Authenticated by: Yoan Tillman MD 07/09/2017 12:52 AM Central Time ([place] & [place]) FINAL REPORT CT ABDOMEN AND PELVIS WITHOUT CONTRAST: I agree with the preliminary report given by Dr. Yoan Tillman of [facility]. POS: [facility]
--- NOTE | 2017-07-09 08:34 | RAD ---
PA AND LATERAL VIEWS CHEST: HISTORY: Right side chest pain, right precordial bruits with pain. FINDINGS: There are changes of median sternotomy. The heart size is borderline. There are small posterior ple ural effusions. No lobar consolidation or pneumothoraces are seen. IMPRESSION: Small pleural effusions. POS: [facility]
[2017-07-09 09:00] LABS: #Eosinphils 0.3 thou/uL (0.0-0.7); #Lymphocytes 1.4 thou/uL (1.20-3.40); #Monocytes 0.5 thou/uL (0.11-0.59); %Basophils 0.7 % (0.0-1.0); %Eosinophils 4.2 % (0.0-10.0); %Lymphocytes 22.7 % (21.0-51.0); %Monocytes 8.1 % (0.0-10.0); %Neutrophils 64.4 % (42.0-75.0); Hemoglobin 6.1 g/dL (14.0-18.0); Mean Corpuscular Hemoglobin 27.5 pg (27.0-31.0); Mean Corpuscular Volume 83.3 fl (80.0-94.0); Mean Platelet Volume 8.3 fL (7.4-10.4); Platelet Count 166 thou/uL (130-400); RBC Distribution Width 15.5 % (11.5-14.5); Red Blood Cell (RBC) Count 2.23 mill/uL (4.70-6.10); White Blood Cell (WBC) Count 6.2 thou/uL (4.8-10.8)
[2017-07-09] MEDS ORDERED: Pantoprazole 40 MG VIAL IVP SCH (09:00)
[2017-07-09] MEDS ORDERED: Non-Formulary Item 1 EACH (Fluticasone/Salmeterol [Advair Diskus 500/50] 1 INH) IH SCH (09:00)
[2017-07-09 09:13] LABS: Anion Gap 9 mmol/L (10-20); BUN (Urea Nitrogen) 15 mg/dL (8.4-25.7); Calc. Creatinine Clearance 99 mL/min (70-130); Calcium 7.7 mg/dL (7.8-10.44); Carbon Dioxide 25 mmol/L (23-31); Chloride 111 mmol/L (98-107); Estimated GFR-MDRD Greater than 90; Glucose 119 mg/dL (83-110); Potassium 4.2 mmol/L (3.5-5.1); Sodium 141 mmol/L (136-145)
[2017-07-09] MEDS: Albuterol Sulfate 2.5 mg/3 ml Neb NEB PRN (09:35)
--- NOTE | 2017-07-09 09:49 | PDOC.PN ---
- Subjective Encounter Start Date: 07/09/17 Encounter Start Time: 09:47 Mr. De La Paz was seen today in follow-up of GI bleed. He denies feeling dizzy or lightheaded, he denies chest pain or shortness of breath, he also denies abdominal pain. He was noted to have two maroon colored stools. - Objective Resuscitation Status: Resuscitation Status FULL:Full Resuscitation MAR Reviewed: Yes Vital Signs & Weight: Vital Signs (12 hours) Temp Pulse Pulse Resp BP BP Pulse Ox 07/09/17 09:35 74 18 96 07/09/17 08:28 99.4 F 74 18 07/09/17 07:51 99.4 F 74 18 122/60 07/09/17 05:05 98.3 F 76 20 117/54 L 07/09/17 04:09 99.4 F 77 19 119/57 L 07/09/17 04:00 99.4 F 77 19 119/57 L 95 07/09/17 01:00 98.1 F 77 20 133/61 07/09/17 00:48 97.8 F 78 20 122/58 L Weight Weight 168 lb 6.4 oz I&O: 07/08/17 07/09/17 07/10/17 06:59 06:59 06:59 Intake Total 530 350 Output Total 100 Balance 430 350 Result Diagrams: 07/09/17 08:44 07/09/17 08:44 Additional Labs: Accuchecks 07/09/17 06:39 POC Glucose 113 H Phys Exam - Physical Examination HEENT: PERRLA Respiratory: no wheezing, no rales, no rhonchi, clear to auscultation bilateral Cardiovascular: RRR, no significant murmur, no rub Gastrointestinal: soft, non-tender, positive bowel sounds Musculoskeletal: no edema Dx/Plan (1) GI bleed Code(s): K92.2 - GASTROINTESTINAL HEMORRHAGE, UNSPECIFIED Status: Acute (2) Acute blood loss anemia Code(s): D62 - ACUTE POSTHEMORRHAGIC ANEMIA Status: Acute (3) Hypothyroidism Code(s): E03.9 - HYPOTHYROIDISM, UNSPECIFIED Status: Acute (4) Asthma Code(s): J45.909 - UNSPECIFIED ASTHMA, UNCOMPLICATED Status: Chronic Qualifiers: Asthma severity: moderate Asthma complication type: with acute exacerbation (5) CAD (coronary artery disease) Code(s): I25.10 - ATHSCL HEART DISEASE OF [place] CORONARY ARTERY W/O ANG PCTRS Status: Chronic Qualifiers: Coronary Disease-Associated Artery/Lesion type: bypass graft [place] vs. transplanted heart: [place] heart Associated angina: without angina Qualified Code(s): I25.810 - Atherosclerosis of coronary artery bypass graft(s) without angina pectoris (6) DM2 (diabetes mellitus, type 2) Status: Chronic Qualifiers: Diabetes mellitus complication status: with circulatory complication Diabetes mellitus complication detail: with other circulatory complications Diabetes mellitus manager intermediate insulin use: without manager intermediate use Qualified Code( s): E11.59 - Type 2 diabetes mellitus with other circulatory complications - Plan * GI- bleed- possibly upper GI bleed- he continues to have some active bleeding , but he is asymptomatic * Will continue to transfuse to keep is HGB above 7 * Continue Protonix drip * Asthma- will continue Duonebs for now, will hold Theophyline * Hypothyroidism- will restart Synthroid the earliest possible * DM- hold scheduled insulin for now, and oral medication, and cover with SSI.
[2017-07-09] MEDS: Mometasone/Formoterol 120 PUFF INHALER INH SCH ×2 (10:42→18:26)
[2017-07-09] MEDS ORDERED: ePHEDrine/0.9% NaCl/PF SYRINGE 50 mg/10 ml ONE (14:48)
[2017-07-09] MEDS ORDERED: PROPOFOL 200 MG/20 ML VIAL ONE (14:48)
[2017-07-09] MEDS ORDERED: PHENYLEPHRINE-NS 100 MCG/ML 10 ML SYRINGE ONE (14:48)
[2017-07-09 15:38] LABS: Hemoglobin 6.6 g/dL (14.0-18.0)
[2017-07-09] MEDS ORDERED: Dextrose 5% in Water 1,000 ML IV PRN (16:57)
[2017-07-09] MEDS ORDERED: Dextrose 50% Abboject 50 ML SYRINGE SLOW IVP PRN (16:57)
[2017-07-09] MEDS ORDERED: HumaLOG 300 UNITS/3 ML VIAL SC PRN ×2 (16:57)
[2017-07-09] MEDS ORDERED: GoLYTELY 4,000 ml Bottle PO SCH (17:45)
[2017-07-09 21:59] LABS: #Eosinphils 0.3 thou/uL (0.0-0.7); #Lymphocytes 1.4 thou/uL (1.20-3.40); #Monocytes 0.7 thou/uL (0.11-0.59); %Basophils 0.4 % (0.0-1.0); %Eosinophils 2.7 % (0.0-10.0); %Lymphocytes 13.1 % (21.0-51.0); %Monocytes 6.6 % (0.0-10.0); %Neutrophils 77.1 % (42.0-75.0); Hemoglobin 7.5 g/dL (14.0-18.0); Mean Corpuscular HGB CONC 33.9 g/dL (32.0-36.0); Mean Corpuscular Hemoglobin 28.3 pg (27.0-31.0); Mean Corpuscular Volume 83.5 fl (80.0-94.0); Platelet Count 173 thou/uL (130-400); RBC Distribution Width 15.6 % (11.5-14.5); Red Blood Cell (RBC) Count 2.66 mill/uL (4.70-6.10); White Blood Cell (WBC) Count 10.3 thou/uL (4.8-10.8)
[2017-07-09 22:04] LABS: INR-International Normal Ratio 1.3; PTT 31.3 SEC (22.9-36.1); Prothrombin Time 16.4 SEC (12.0-14.7)
--- NOTE | 2017-07-10 01:22 | CON ---
DATE OF CONSULTATION: 07/09/2017 REASON FOR CONSULTATION: Hematochezia. CONSULTING PHYSICIAN: Dr. Reji Heard. HISTORY OF PRESENT ILLNESS: The patient is a 71-year-old male with past medical history of coronary artery disease status post CABG, hyperthyroidism, asthma and diastolic heart failure presenting with complaints of hematochezia. He states that he was in his usual state of health until 2 days ago when he noticed bright red blood per rectum that was mixed in with his stool. Over the next 24-48 hours, he had 8-10 additional dark red grossly bloody bowel movements, sometimes mixed with stool, sometime s with bloody bowel movements alone. He did endorse some black or darker looking clots that were mix ed in with the bright red blood, but no overt black stools themselves. He did endorse taking some Pe pto-Bismol over the weekend, which could have contributed to his darker colored stools. Otherwise, jennifer knapp denies any other symptoms. Currently, he denies any nausea, vomiting, fevers, chills, abdominal pa in, hematemesis, dysphagia or odynophagia. Of note, he is taking aspirin 81 mg daily as an outpatien t, but denies any other use of NSAIDs. REVIEW OF SYSTEMS: A 10 category review of systems was taken with all responses negative except for the pertinent positives as listed in the HPI. PAST MEDICAL HISTORY: As per HPI. PAST SURGICAL HISTORY: Coronary artery bypass graft, bladder surgery. FAMILY HISTORY: Denies any GI malignancy. SOCIAL HISTORY: Denies any tobacco, alcohol or illicit drug use. OUTPATIENT MEDICATIONS: Reviewed. ALLERGIES: EGGS. PHYSICAL EXAMINATION: VITAL SIGNS: Temperature of 97.5, heart rate 81, blood pressure 110/55, respiratory rate 20, satting 97% on room air. GENERAL: The patient is lying in bed comfortably in no acute distress. Alert and oriented x4. NECK: Supple. No JVD noted. CARDIOVASCULAR: Regular rate and rhythm with no discernible murmurs, gallops or rubs. RESPIRATORY: Clear to auscultation bilaterally with no discernible wheezes or rales. ABDOMEN: Normoactive bowel sounds, soft, nontender, nondistended. EXTREMITIES: No cyanosis, clubbing or edema. LABORATORY DATA: CBC with a white blood cell count of 6.2, hemoglobin 6.1, hematocrit 18.5, platelet s 166. Chemistry with sodium of 141, potassium 4.2, chloride 111, CO2 of 25, BUN 15, creatinine 0.74 , glucose 119, AST 7, ALT 7, alkaline phosphatase 42, total bilirubin 0.2, albumin 3.0. IMAGING STUDIES: CT of the abdomen and pelvis obtained on 07/08/2017 showing small bilateral pleural effusions, trace pericardial effusion and splenomegaly. No evidence of diverticulitis was seen duri ng this examination. ASSESSMENT AND PLAN: The patient is a 71-year-old male with past medical history of coronary artery disease status post CABG, hypothyroidism, asthma and diastolic heart failure presenting with hematoch ezia. Hematochezia. The patient presenting initially with recurrence of bright red blood per rectum over t he last 48 hours with significant amount during that time. Sometimes mixed with stool, but sometimes with over bloody bowel movements. However, he does also complain of darker colored or black type st ools with coadministration of Pepto-Bismol, but cannot rule out an upper gastrointestinal bleed at th is time. He was given approximately 2 units of packed red blood cells in the ED and despite this adm inistration has failed to appropriately correct on the most recent blood draw, concerning for active gastrointestinal bleeding. He is currently hemodynamically stable, but with continued bright red blo od per rectum. Urgent endoscopy is indicated. RECOMMENDATIONS: 1. We would transfer the patient to ICU for rapid prep prior to EGD and colonoscopy. 2. We would may maintain the patient n.p.o. for now given pending procedures. 3. We would continue to trend hemoglobin and hematocrit and transfuse as necessary maintain hemoglob in and hematocrit of 7/21. 4. We would continue proton pump inhibitor drip for possibility of upper gastrointestinal bleeding. We will continue to follow. Please call with any questions.
--- NOTE | 2017-07-10 01:43 | OP ---
DATE OF PROCEDURE: 07/09/2017 PROCEDURES PERFORMED: EGD (diagnostic), colonoscopy with control of hemorrhage. INDICATION FOR PROCEDURE: Melena, hematochezia. DESCRIPTION OF PROCEDURE: After the risks and benefits were discussed with the patient including ris ks of bleeding, infection, perforation, reactions to anesthesia and/or pain, informed consent was obt ained. The patient was transferred from the ICU to the endoscopy suite where deep sedation was admin istered via propofol and anesthesia support. The standard gastroscope was then introduced [facility] the [facility] with intubation of the esophagus, stomach and proximal small intestine with the findings listed below. The patient tolerated the procedure well with no immediate perioperative complications. FINDINGS: Esophagus: Normal appearing mucosa was seen in the proximal, mid and distal esophagus, there was no evidence of erosions, ulcerations, mass lesions or active/recent bleeding. Stomach: Normal mucosa was seen in the cardia, fundus, body, antrum and incisura. There was no evid ence of erosions, ulcerations, mass lesions or active/recent bleeding. Normal findings were seen on gastric retroflexion. Small Bowel: Normal appearing mucosa was seen in the second portion of the duodenum without any evid ence of erosions, ulcerations, mass lesions or active/recent bleeding. Nodular/polypoid mucosa was s een in the duodenal bulb without associated ulcerations or active/recent bleeding. Biopsies were not taken from this region due to increased risk of bleeding at this time. IMPRESSION: 1. 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 2. Otherwise, normal upper endoscopy. COLONOSCOPY WITH CONTROL OF HEMORRHAGE: DESCRIPTION OF PROCEDURE: After the risks and benefits of the procedure were explained to the patien t including risks of bleeding, infection, perforation, reactions to anesthesia and/or pain, informed consent was obtained. The patient was taken from the ICU and taken to the endoscopy suite where deep sedation with propofol was administered via anesthesia support. The standard colonoscope was then i ntroduced into the rectum with maximal progression into the terminal ileum with the findings listed b elow. The quality of the prep was fair, converted to good with extensive and aggressive irrigation a nd suctioning. The patient tolerated the procedure well with no immediate perioperative complication s. Rectal exam, small external hemorrhoids were seen on external exam without any evidence of active/rec ent bleeding. Normal-appearing mucosa was seen in the terminal ileum without any evidence of old or recent bleeding . An extensive amount of bright red blood was seen throughout the entire colon that was intermittent ly mixed with bits of solid stool; however, adequate visualization of the colonic mucosa was achieved with aggressive irrigation and suctioning. Severe pancolonic diverticulosis was seen throughout the entire colon with careful inspection made of each one at approximately 70 cm past the anal verge, a small diverticula was noted to have a fibrin clot noted along one of its martinez that did not display a ny active/recent bleeding with manipulation with the water jet. It was not able to reproduce the ble eding. Hemoclip x2 was then placed across the diverticula itself with adequate hemostasis achieved. The first Hemoclip did not deploy correctly, but the diverticulum was closed with a second Hemoclip placement. Scattered colonic polyps were seen in the transverse, descending and sigmoid colon number ing approximately 4-5. These were not intervened upon during this examination due to increased risk of bleeding with polypectomy. The remainder of the exam was normal. Small internal hemorrhoids were noted on rectal retroflexion. IMPRESSION: 1. A large amount of bright red blood was seen throughout the entire colon limiting visualization, b ut adequate visualization was achieved with aggressive irrigation and suctioning. 2. A diverticulum at 70 cm past the anal verge displayed a fibrin clot indicative of recent GI bleed ing. Hemostasis was achieved with Hemoclip placement x2. 3. Severe pancolonic diverticulosis. 4. Nonbleeding internal and external hemorrhoids. RECOMMENDATIONS: 1. We would continue to trend H&H and transfuse as necessary to maintain an H&H of 7/21. 2. We would continue to monitor clinically for signs of active lower gastrointestinal bleeding. 3. If the patient displays increased bleeding, we would consider either repeat colonoscopy or tagged red blood cell scan for further evaluation and localization of the bleeding. 4. We would continue the patient on n.p.o. status until morning. If no further evidence of active b leeding, we would advance diet as tolerated.
[2017-07-10] MEDS: Pantoprazole 80 MG in Sodium Chloride 0.9% 100 ML IVP SCH ×2 (05:17→17:43)
[2017-07-10 05:33] LABS: #Eosinphils 0.3 thou/uL (0.0-0.7); #Lymphocytes 1.3 thou/uL (1.20-3.40); #Monocytes 0.7 thou/uL (0.11-0.59); #Neutrophils 5.3 thou/uL (1.40-6.50); %Basophils 0.6 % (0.0-1.0); %Eosinophils 3.5 % (0.0-10.0); %Lymphocytes 17.3 % (21.0-51.0); %Monocytes 8.6 % (0.0-10.0); %Neutrophils 70.1 % (42.0-75.0); Mean Corpuscular HGB CONC 34.6 g/dL (32.0-36.0); Mean Corpuscular Hemoglobin 29.5 pg (27.0-31.0); Mean Corpuscular Volume 85.1 fl (80.0-94.0); Mean Platelet Volume 8.4 fL (7.4-10.4); Platelet Count 147 thou/uL (130-400); RBC Distribution Width 15.6 % (11.5-14.5); Red Blood Cell (RBC) Count 2.36 mill/uL (4.70-6.10); White Blood Cell (WBC) Count 7.6 thou/uL (4.8-10.8)
[2017-07-10 05:39] LABS: INR-International Normal Ratio 1.3; Prothrombin Time 16.4 SEC (12.0-14.7)
[2017-07-10 05:49] LABS: ALT (SGPT) Less than 7 U/L (8-55); AST (SGOT) 10 U/L (5-34); Albumin 2.5 g/dL (3.4-4.8); Alkaline Phosphatase 37 U/L (40-150); Anion Gap 8 mmol/L (10-20); BUN (Urea Nitrogen) 12 mg/dL (8.4-25.7); Bilirubin, Total 0.6 mg/dL (0.2-1.2); Calc. Creatinine Clearance 95 mL/min (70-130); Calcium 7.2 mg/dL (7.8-10.44); Carbon Dioxide 25 mmol/L (23-31); Chloride 111 mmol/L (98-107); Estimated GFR-MDRD Greater than 90; Globulin 1.3 g/dL (2.4-3.5); Glucose 136 mg/dL (83-110); Potassium 3.6 mmol/L (3.5-5.1); Protein, Total 3.8 g/dL (5.8-8.1); Sodium 140 mmol/L (136-145)
[2017-07-10] MEDS: Mometasone/Formoterol 120 PUFF INHALER INH SCH ×2 (08:54→18:20)
[2017-07-10] MEDS ORDERED: FLU VACC TS2017-18 (>65YR) 0.5 ML SYRINGE IM ONE (09:00)
--- NOTE | 2017-07-10 09:55 | PDOC.PN ---
- Subjective Encounter Start Date: 07/10/17 Encounter Start Time: 09:52 Mr. De La Paz was seen in follow-up of GI bleed. He does not have any complaints. He denies feeling dizzy or weak, and denies abdominal pain. - Objective Resuscitation Status: Resuscitation Status FULL:Full Resuscitation MAR Reviewed: Yes Vital Signs & Weight: Vital Signs (12 hours) Temp Pulse Resp Pulse Ox 07/10/17 08:00 98.1 F 07/10/17 07:27 98.1 F 80 18 98 07/10/17 04:00 98.0 F 07/10/17 00:20 98.4 F 07/09/17 22:27 98.5 F Weight Weight 168 lb 13.985 oz Most Recent Monitor Data Heart Rate from ECG 80 NIBP 108/41 NIBP BP-Mean 78 Respiration from ECG 14 SpO2 96 I&O: 07/09/17 07/10/17 07/11/17 06:59 06:59 06:59 Intake Total 530 3385 200 Output Total 100 155 10 Balance 430 3230 190 Result Diagrams: 07/10/17 05:01 07/10/17 05:01 Additional Labs: Accuchecks 07/10/17 07/09/17 07/09/17 05:54 20:55 17:12 POC Glucose 139 H 142 H 118 H 07/09/17 11:33 POC Glucose 128 H Phys Exam - Physical Examination HEENT: PERRLA Respiratory: no wheezing, no rales, no rhonchi, clear to auscultation bilateral Cardiovascular: RRR, no significant murmur Gastrointestinal: soft, non-tender, positive bowel sounds Musculoskeletal: no edema Dx/Plan (1) GI bleed Code(s): K92.2 - GASTROINTESTINAL HEMORRHAGE, UNSPECIFIED Status: Acute (2) Acute blood loss anemia Code(s): D62 - ACUTE POSTHEMORRHAGIC ANEMIA Status: Acute (3) Hypothyroidism Code(s): E03.9 - HYPOTHYROIDISM, UNSPECIFIED Status: Acute (4) Asthma Code(s): J45.909 - UNSPECIFIED ASTHMA, UNCOMPLICATED Status: Chronic Qualifiers: Asthma severity: moderate Asthma complication type: with acute exacerbation (5) CAD (coronary artery disease) Code(s): I25.10 - ATHSCL HEART DISEASE OF [place] CORONARY ARTERY W/O ANG PCTRS Status: Chronic Qualifiers: Coronary Disease-Associated Artery/Lesion type: bypass graft [place] vs. transplanted heart: [place] heart Associated angina: without angina Qualified Code(s): I25.810 - Atherosclerosis of coronary artery bypass graft(s) without angina pectoris (6) DM2 (diabetes mellitus, type 2) Status: Chronic Qualifiers: Diabetes mellitus complication status: with circulatory complication Diabetes mellitus complication detail: with other circulatory complications Diabetes mellitus intermediate insulin use: without intermediate use Qualified Code( s): E11.59 - Type 2 diabetes mellitus with other circulatory complications - Plan * GI- bleed- He was found to have severe diverticulosis, with active bleeding * Hemostasis has been achieved * He has received 5 untis of RBC's * Continue to monitor H&H * HTN- blood pressure is stable * DM- blood glucose is stable * Advance diet as per Gastroenterology.
[2017-07-10] MEDS: Insulin Detemir 100 UNITS/ML 17 UNITS in Pre-Filled Syringe 1 EACH SC SCH (10:08)
[2017-07-10] MEDS ORDERED: Ferrous Sulfate 325 MG TAB PO SCH (10:30)
[2017-07-10 12:20] LABS: Hemoglobin 6.1 g/dL (14.0-18.0)
--- NOTE | 2017-07-10 15:13 | PRG ---
DATE OF SERVICE: 07/10/2017 SUBJECTIVE: The patient has been having a large amount of bloody bowel movements. He is presently u ndergoing a gastric bleeding scan. He underwent a colonoscopy yesterday, which showed possible bleed ing diverticulum at 70 cm and Hemoclips were placed. He had severe pancolonic diverticulosis. OBJECTIVE: VITAL SIGNS: Temperature 98.6, pulse 78, respiratory rate 22, blood pressure 116/47. CHEST: Clear. CARDIOVASCULAR: Regular rate and rhythm. ABDOMEN: Benign. LABORATORY DATA: Shows hemoglobin 7.5 last night, 7.0 this morning and at noon 6.1. PT is 16.4 with an INR of 1.3. ASSESSMENT: 1. Diverticular hemorrhage - patient underwent colonoscopy and attempted hemostasis with a Hemoclip which was unsuccessful. 2. Anemia secondary to gastrointestinal blood loss. RECOMMENDATIONS: 1. Gastrointestinal bleeding scan. 2. Transfuse 2 units. 3. May need surgical intervention if bleeding persists.
--- NOTE | 2017-07-10 16:59 | NM ---
RADIONUCLIDE TAGGED RED BLOOD CELL BLEEDING STUDY 07/10/17 HISTORY: Hematochezia. FINDINGS: Early images show physiologic uptake of radiotracer throughout the vascular system. Normal structures seen. No abnormal uptake is apparent over the enteric system. IMPRESSION: No scintigraphic evidence of ongoing enteric hemorrhage. POS: [facility]
[2017-07-10] MEDS: Carvedilol 3.125 MG TAB PO SCH (17:49)
[2017-07-10 21:14] LABS: Hemoglobin 7.9 g/dL (14.0-18.0)
--- NOTE | 2017-07-11 00:54 | CON ---
DATE OF CONSULTATION: 07/10/2017 HISTORY OF PRESENT ILLNESS: Mr. De La Paz is a 71-year-old male. He presented with rectal bleeding. He has undergone endoscopy that does not identify a source. Bleeding scan shows no recurrent bleedi ng. It is felt that he most likely had a diverticular bleed. He is in the critical care unit. He denies any discomfort. Denies shortness of breath. PAST MEDICAL HISTORY: Remarkable for: 1. Coronary artery bypass grafting in the past. 2. Diastolic heart failure. 3. History of asthma. 4. History of bladder surgery. SOCIAL HISTORY: He is a nonsmoker, nondrinker, no history of drug use. ALLERGIES: He reports no allergies to medications. FAMILY HISTORY: Negative for hypertension, diabetes, lung disease in early age. REVIEW OF SYSTEMS: Twelve point is otherwise negative. He has had no abdominal cramping or hemateme sis. MEDICATIONS: Prior to admission, he was on nebulizer, amlodipine, aspirin, Coreg, iron, fluticasone, Lasix, insulin, Synthroid, lisinopril, metformin, potassium, theophylline. PHYSICAL EXAMINATION: VITAL SIGNS: Blood pressure this afternoon is 121/49, heart rate 72, respiratory rate is 20, oximetr y is 97 on room air. HEENT: Pupils are equal. He does appear a little pale. NECK: Supple, no lymphadenopathy. LUNGS: Clear. HEART: Regular rhythm, no S3. ABDOMEN: Soft and nontender. EXTREMITIES: Without asymmetry. LABORATORY DATA: Hemoglobin at 5:00 was 7; at noon, it was 6, he is receiving 2 units of packed cell s, white count 7.6, platelets 147. Sodium 140, potassium 3.6, chloride 111, bicarbonate 25, BUN 12, creatinine 0.77. I reviewed the available images which included a CT of his abdomen and pelvis which shows only divert iculosis. IMPRESSION: 1. Lower gastrointestinal blood loss. 2. Small bilateral effusions, most likely secondary to diastolic dysfunction. 3. Splenomegaly of unclear etiology. 4. History of coronary artery disease and coronary artery bypass grafting. 5. Status post negative gastrointestinal bleed nuclear study. PLAN: Continue support, transfusion, monitoring of H&H. This is a 50 minute consult, greater than 50% of the time spent on the unit coordinating care.
[2017-07-11] MEDS: Pantoprazole 80 MG in Sodium Chloride 0.9% 100 ML IVP SCH (03:24)
[2017-07-11] MEDS: Levothyroxine Sodium 25 MCG TAB PO SCH (05:20)
[2017-07-11 06:06] LABS: Hemoglobin 8.9 g/dL (14.0-18.0); Platelet Count 168 thou/uL (130-400)
--- NOTE | 2017-07-11 08:08 | PDOC.PN ---
- Subjective Encounter Start Date: 07/11/17 Encounter Start Time: 08:06 Mr. De La Paz was seen today in follow-up. He says he has not had any more rectal bleeding since noon yesterday. He denies abdominal pain. - Objective Resuscitation Status: Resuscitation Status FULL:Full Resuscitation MAR Reviewed: Yes Vital Signs & Weight: Vital Signs (12 hours) Temp Pulse Resp Pulse Ox 07/11/17 04:00 98.0 F 07/10/17 23:54 98.8 F 07/10/17 20:45 98.6 F 77 15 95 Weight Weight 168 lb 10.458 oz Most Recent Monitor Data Heart Rate from ECG 68 NIBP 127/50 NIBP BP-Mean 95 Respiration from ECG 20 SpO2 98 I&O: 07/10/17 07/11/17 07/12/17 06:59 06:59 06:59 Intake Total 3385 2243 Output Total 155 530 Balance 3230 1713 Result Diagrams: 07/11/17 05:14 07/10/17 05:01 Additional Labs: Accuchecks 07/11/17 07/10/17 07/10/17 05:17 21:05 17:33 POC Glucose 67 L 83 88 07/10/17 11:15 POC Glucose 132 H Phys Exam - Physical Examination Respiratory: no rales, wheezing present Cardiovascular: RRR, no significant murmur Gastrointestinal: soft, non-tender, positive bowel sounds Musculoskeletal: no edema Dx/Plan (1) GI bleed Code(s): K92.2 - GASTROINTESTINAL HEMORRHAGE, UNSPECIFIED Status: Acute (2) Acute blood loss anemia Code(s): D62 - ACUTE POSTHEMORRHAGIC ANEMIA Status: Acute (3) Hypothyroidism Code(s): E03.9 - HYPOTHYROIDISM, UNSPECIFIED Status: Acute (4) Asthma Code(s): J45.909 - UNSPECIFIED ASTHMA, UNCOMPLICATED Status: Chronic Qualifiers: Asthma severity: moderate Asthma complication type: with acute exacerbation (5) CAD (coronary artery disease) Code(s): I25.10 - ATHSCL HEART DISEASE OF [place] CORONARY ARTERY W/O ANG PCTRS Status: Chronic Qualifiers: Coronary Disease-Associated Artery/Lesion type: bypass graft [place] vs. transplanted heart: [place] heart Associated angina: without angina Qualified Code(s): I25.810 - Atherosclerosis of coronary artery bypass graft(s) without angina pectoris (6) DM2 (diabetes mellitus, type 2) Status: Chronic Qualifiers: Diabetes mellitus complication status: with circulatory complication Diabetes mellitus complication detail: with other circulatory complications Diabetes mellitus mcfp insulin use: without termite exterminator helper use Qualified Code( s): E11.59 - Type 2 diabetes mellitus with other circulatory complications - Plan * Diverticular Bleed- his H&H has responded appropriately to transfusion, and the Bleeding scan was negative for active bleed * Advance diet as per Gastroenterology * DM- blood glucose has been a little low, this should improved, with advanced diet * Hypothyroidism- we have re-started his synthroid * Asthma- continue Duonebs as needed, Dulera and Theophylline.
[2017-07-11] MEDS: Carvedilol 3.125 MG TAB PO SCH ×2 (08:09→18:03)
[2017-07-11] MEDS: Ferrous Sulfate 325 MG TAB PO SCH (08:09)
[2017-07-11] MEDS: Insulin Detemir 100 UNITS/ML 17 UNITS in Pre-Filled Syringe 1 EACH SC SCH (08:09)
[2017-07-11] MEDS: Albuterol Sulfate 2.5 mg/3 ml Neb NEB PRN ×2 (08:24→22:58)
[2017-07-11] MEDS: Mometasone/Formoterol 120 PUFF INHALER INH SCH ×2 (08:27→18:41)
--- NOTE | 2017-07-11 11:48 | PRG ---
DATE OF SERVICE: 07/11/2017 SUBJECTIVE: The patient has not had any further bleeding. He is hungry and wants to eat. OBJECTIVE: VITAL SIGNS: Temperature 98.4, pulse 72, respiratory rate 16, blood pressure 123/47. CHEST: Clear. CARDIOVASCULAR: Regular rate and rhythm. ABDOMEN: Benign. LABORATORY DATA: Hemoglobin is 8.9, hematocrit 27.0, and platelet count 168. ASSESSMENT: 1. Diverticular hemorrhage. 2. Anemia secondary to gastrointestinal blood loss. RECOMMENDATIONS: 1. Advance diet. 2. Stable from GI standpoint, to be discharged tomorrow if stable. 3. Hold aspirin for 1 week.
[2017-07-11 16:33] LABS: #Basophils 0.1 thou/uL (0.0-0.2); #Eosinphils 0.6 thou/uL (0.0-0.7); #Lymphocytes 1.7 thou/uL (1.20-3.40); #Monocytes 0.8 thou/uL (0.11-0.59); #Neutrophils 5.9 thou/uL (1.40-6.50); %Basophils 0.7 % (0.0-1.0); %Eosinophils 6.4 % (0.0-10.0); %Lymphocytes 18.7 % (21.0-51.0); %Monocytes 8.6 % (0.0-10.0); %Neutrophils 65.6 % (42.0-75.0); Hemoglobin 8.3 g/dL (14.0-18.0); Mean Corpuscular HGB CONC 33.2 g/dL (32.0-36.0); Mean Corpuscular Volume 87.2 fl (80.0-94.0); Mean Platelet Volume 8.1 fL (7.4-10.4); Platelet Count 172 thou/uL (130-400); RBC Distribution Width 15.6 % (11.5-14.5); Red Blood Cell (RBC) Count 2.87 mill/uL (4.70-6.10)
--- NOTE | 2017-07-11 18:42 | PRG ---
DATE OF SERVICE: 07/11/2017 Mr. De La Paz had a small bloody stool this afternoon. He has been on a clear liquid diet and because of the bleeding episode, his diet was left on clear liquids. Delayed images were obtained with a nu clear medicine study and this did show evidence of tracer throughout the entire colon. The tracer wa s confined to the colon and perhaps a little bit more intense towards the right colon, hepatic flexur e to transverse, but really the focal bleeding source or even side of the colon cannot be definitivel y determined by this. He most likely has diverticular bleeding. Given evidence of recent active ble eding by the nuclear medicine scan, we will continue clear liquid diet tonight. If he continues to h ave multiple bloody stools tonight and decrease in his hemoglobin tomorrow morning, then I will repea t a colonoscopy to look for obvious active bleeding tomorrow. If his hemoglobin is only mildly decre ased or he does not have ongoing significant overt bleeding, then we can advance his diet in the morn ing.
--- NOTE | 2017-07-11 19:24 | NM ---
NUCLEAR MEDICINE ABDOMINAL GI BLEED PYROPHOSPHATE SCAN: 07/11/17 HISTORY: 71-year-old male with history of GI bleeding. Patient was initially scanned on 07/10/17 which did not definitely demonstrate an active source of GI bleeding. The patient was brought back today, this afternoon, and additional delayed imaging was perf ormed. These images do demonstrate evidence for abnormal activity throughout the colon including the upper r ight colon, hepatic flexure, transverse colon, splenic flexure, and left colon, and rectosigmoid david on. IMPRESSION: Evidence of abnormal tracer activity throughout the colon indicating evidence for some active lower G I/colon bleeding although the exact site could not be definitely determined. However, given that the tracer extends throughout the colon and the concentration of tracer appears to be somewhat more dense in the upper right colon and transverse colon, I would favor the site of bleeding would be more like ly from this location rather than from the left colon or rectosigmoid. POS: [facility]
--- NOTE | 2017-07-11 19:33 | PRG ---
DATE OF SERVICE: 07/11/2017 SUBJECTIVE: Kia De La Paz has had no more rectal bleeding. He has had a bowel movement. OBJECTIVE: VITAL SIGNS: He is afebrile, heart rate 71, oximetry is 96 on room air, respiratory rate 20, blood pressure 122/47. LUNGS: Clear. HEART: Regular rhythm. ABDOMEN: Soft. Hemoglobin this morning was 8.9, this afternoon is 8.3, platelets 172. No new electrolytes. IMPRESSION: Gastrointestinal blood loss, most likely lower source. Clinically resolved. PLAN: Continue observation with lab measurements in daily exams. GUILLERMO
[2017-07-12] MEDS: Albuterol Sulfate 2.5 mg/3 ml Neb NEB PRN ×3 (05:22→21:42)
[2017-07-12] MEDS: Levothyroxine Sodium 25 MCG TAB PO SCH (05:48)
[2017-07-12 06:14] LABS: Hemoglobin 7.3 g/dL (14.0-18.0); Platelet Count 158 thou/uL (130-400)
[2017-07-12] MEDS: Insulin Detemir 100 UNITS/ML 17 UNITS in Pre-Filled Syringe 1 EACH SC SCH (08:22)
[2017-07-12] MEDS: Ferrous Sulfate 325 MG TAB PO SCH (08:23)
[2017-07-12] MEDS: Carvedilol 3.125 MG TAB PO SCH ×2 (08:23→16:58)
[2017-07-12] MEDS: Mometasone/Formoterol 120 PUFF INHALER INH SCH ×2 (09:32→18:48)
--- NOTE | 2017-07-12 12:36 | PDOC.PN ---
- Subjective Encounter Start Date: 07/12/17 Encounter Start Time: 10:15 -: old records requested/rev Pt seen and exmained, chart reviewe din its entirety. This is my first visit with this patient. Some bloody bowel movements yesterday, today, Hgb down another gram. Dr Bell to take for repeat colonoscopy this afternoon. no F/C, no n/v, no abd pain. 10 point ROS performed and neg for all systems except as above - Objective Resuscitation Status: Resuscitation Status FULL:Full Resuscitation MAR Reviewed: Yes Vital Signs & Weight: Vital Signs (12 hours) Temp Pulse Resp BP Pulse Ox 07/12/17 11:12 97.5 F L 63 19 120/53 L 97 07/12/17 09:32 70 20 97 07/12/17 07:59 98.0 F 72 18 94 L 07/12/17 07:20 98.0 F 72 18 134/59 L 94 L 07/12/17 05:22 66 12 95 07/12/17 04:00 98.7 F 64 18 118/56 L 95 Weight Weight 164 lb 6.4 oz Most Recent Monitor Data Heart Rate from ECG 68 NIBP 127/50 NIBP BP-Mean 95 Respiration from ECG 20 SpO2 98 I&O: 07/11/17 07/12/17 07/13/17 06:59 06:59 06:59 Intake Total 2243 320 600 Output Total 530 2025 Balance 1713 -1705 600 Result Diagrams: 07/12/17 04:56 07/10/17 05:01 Additional Labs: Accuchecks 07/12/17 07/11/17 07/11/17 05:52 21:00 16:48 POC Glucose 91 141 H 90 07/11/17 11:50 POC Glucose 118 H Radiology Reviewed by me: Yes EKG Reviewed by me: Yes Phys Exam - Physical Examination Constitutional: NAD HEENT: PERRLA, moist MMs, sclera anicteric, oral pharynx no lesions Neck: no nodes, no JVD, supple, full ROM Respiratory: no wheezing, no rales, no rhonchi, clear to auscultation bilateral Cardiovascular: RRR, no significant murmur, no rub Gastrointestinal: soft, non-tender, no distention, positive bowel sounds Musculoskeletal: pulses present, edema present Neurological: non-focal, normal sensation, moves all 4 limbs Lymphatic: no nodes Psychiatric: normal affect, A&O x 3 Skin: no rash, normal turgor, cap refill <2 seconds Dx/Plan - Plan cont current plan of care, DVT proph w/SCDs * . Colonoscopy today. serial h/h. follow up on GI findings and recs. trasnfuse for hgb less than 7
--- NOTE | 2017-07-12 13:10 | PRG ---
DATE OF SERVICE: 07/12/2017 SUBJECTIVE: He has no complaints and wants to go home. OBJECTIVE: VITAL SIGNS: He is afebrile, heart rate 63, respiratory rate 19, oximetry is 97%, blood pressure 120 /53. ABDOMEN: Apparently, he had small blood in a bowel movement yesterday. LUNGS: Clear. HEART: Regular rhythm. LABORATORY DATA: His hemoglobin was down to 7.3 from 8.3 yesterday. IMPRESSION: Lower gastrointestinal bleeding, likely diverticular. PLAN: Continue supportive care per Gastroenterology. Apparently, GI plans to repeat a colonoscopy i f he continues to have some bloody bowel movements. This seems appropriate. I do not think it would be safe for him to go home and I understand his disappointment.
--- NOTE | 2017-07-12 13:19 | OP ---
DATE OF PROCEDURE: 07/12/2017 SURGEON: Jeremy Bell M.D. PROCEDURE: Colonoscopy. PREOPERATIVE DIAGNOSIS: Lower gastrointestinal bleed. The patient had recurrent bleeding yesterday and follow up delayed images on the bleeding scan showed blood throughout the colon. The patient's hemoglobin dropped this morning and followup colonoscopy is performed. No additional prep was given as he has been on only clear liquids since the previous c olonoscopy 2 days ago. PROCEDURE IN DETAIL: Informed consent was obtained from the patient. He was sedated with total intr avenous anesthesia. The rectal exam was performed and was normal. The colonoscope was advanced to t he terminal ileum without difficulty. The mucosa of the terminal ileum was normal. The ileocecal va lve and appendiceal orifice were clearly identified. The preparation quality was poor. There was st aining of green stool in the right colon. There was browner stool more distally and some old dark bl ack blood in the distal rectum and sigmoid, staining the martinez; however, there was no stigmata of rec ent bleeding. There was no active bleeding. There is diverticulosis throughout the colon. There we re a couple of Hemoclips noted over one diverticulum in the distal transverse colon. ASSESSMENT: 1. Diverticulosis throughout the colon. 2. There is no active bleeding. RECOMMENDATIONS: 1. Advance to a solid diet. 2. Anticipate discharge home tomorrow if his hemoglobin remains stable and there is no further signi ficant overt bleeding.
[2017-07-12] MEDS ORDERED: Lidocaine 1% PF 5 ML VIAL ONE (14:02)
[2017-07-12] MEDS ORDERED: PROPOFOL 200 MG/20 ML VIAL ONE (14:02)
[2017-07-13] MEDS: Albuterol Sulfate 2.5 mg/3 ml Neb NEB PRN ×3 (03:29→12:02)
[2017-07-13] MEDS: Levothyroxine Sodium 25 MCG TAB PO SCH (06:04)
[2017-07-13 07:06] LABS: Hemoglobin 7.3 g/dL (14.0-18.0)
[2017-07-13] MEDS: Mometasone/Formoterol 120 PUFF INHALER INH SCH ×2 (08:38→18:45)
[2017-07-13] MEDS: Carvedilol 3.125 MG TAB PO SCH ×2 (09:32→18:34)
[2017-07-13] MEDS: Ferrous Sulfate 325 MG TAB PO SCH (09:32)
[2017-07-13] MEDS: Insulin Detemir 100 UNITS/ML 17 UNITS in Pre-Filled Syringe 1 EACH SC SCH (09:34)
[2017-07-13] MEDS ORDERED: Furosemide 40 MG TAB PO SCH (11:45)
[2017-07-13 15:24] LABS: Hemoglobin 7.8 g/dL (14.0-18.0)
[2017-07-13] MEDS ORDERED: Albuterol Sulfate 2.5 mg/3 ml Neb NEB PRN (15:27)
[2017-07-13] MEDS: Albuterol Sulfate 2.5 mg/3 ml Neb NEB SCH ×3 (15:38→23:56)
--- NOTE | 2017-07-13 15:53 | PDOC.PN ---
- Subjective Encounter Start Date: 07/13/17 Encounter Start Time: 11:[address] Bell face to face. Pt without BM in last 24+ hours, no further hematochezia To GI lab yesterdya, old blood seen, no acute bleeding. H/H stable all day yesterday, now down from 8.0 to 7.3. Will feed, watch, and monitor H/H, signs of bleeding. no further interventions planned. complains of some SOB, like his asthma, nebs not helping much 10 point ROS performed and neg for all systems except as above - Objective Resuscitation Status: Resuscitation Status FULL:Full Resuscitation MAR Reviewed: Yes Vital Signs & Weight: Vital Signs (12 hours) Temp Pulse Resp BP BP Pulse Ox 07/13/17 15:38 75 20 95 07/13/17 15:30 98.4 F 71 24 H 137/64 97 07/13/17 12:00 70 142/65 H 96 07/13/17 11:11 99.3 F 74 17 137/56 L 96 07/13/17 08:38 69 20 98 07/13/17 08:00 98.4 F 69 20 07/13/17 07:05 98.4 F 93 18 136/56 L 93 L 07/13/17 04:00 98.4 F 62 18 129/49 L 94 L Weight Weight 164 lb 14.4 oz Most Recent Monitor Data Heart Rate from ECG 68 NIBP 127/50 NIBP BP-Mean 95 Respiration from ECG 20 SpO2 98 I&O: 07/12/17 07/13/17 07/14/17 06:59 06:59 06:59 Intake Total 320 1450 Output Total 2024 1220 150 Balance -1705 230 -150 Result Diagrams: 07/13/17 15:18 07/10/17 05:01 Additional Labs: Accuchecks 07/13/17 07/13/17 07/12/17 10:27 06:06 21:01 POC Glucose 178 H 99 96 07/12/17 16:08 POC Glucose 97 Radiology Reviewed by me: Yes EKG Reviewed by me: Yes Phys Exam - Physical Examination Constitutional: NAD HEENT: PERRLA, moist MMs, sclera anicteric, oral pharynx no lesions Neck: no nodes, no JVD, supple, full ROM Respiratory: no rales, no rhonchi, clear to auscultation bilateral prolonged expiration Cardiovascular: RRR, no significant murmur, no rub Gastrointestinal: soft, non-tender, no distention, positive bowel sounds Musculoskeletal: pulses present, edema present Neurological: non-focal, normal sensation, moves all 4 limbs Dx/Plan (1) Acute blood loss anemia Code(s): D62 - ACUTE POSTHEMORRHAGIC ANEMIA Status: Acute Comment: s/p 7 units PRBCs. 7.3 today, watch. transfuse for hgb < 7.0 (2) GI bleed Code(s): K92.2 - GASTROINTESTINAL HEMORRHAGE, UNSPECIFIED Status: Acute Qualifiers: GI bleed type/associated pathology: diverticulosis Qualified Code(s): K57.91 - Diverticulosis of intestine, part unspecified, without perforation or abscess with bleeding Comment: no acitve bleed seen 2/. (3) Hypothyroidism Code(s): E03.9 - HYPOTHYROIDISM, UNSPECIFIED Status: Chronic Qualifiers: Hypothyroidism type: acquired Qualified Code(s): E03.9 - Hypothyroidism, unspecified (4) CHF (congestive heart failure) Code(s): I50.9 - HEART FAILURE, UNSPECIFIED Status: Acute Qualifiers: Congestive heart failure type: combined Comment: with mild exacerbation, now s/p 7 units PRBCs and some mild SOB. Will give a dose of lasix, stop IV fluids, restart home lasix (5) Demand ischemia Code(s): I24.8 - OTHER FORMS OF ACUTE ISCHEMIC HEART DISEASE Status: Acute Comment: likley due to A-fib w RVR, demand ischemia (6) Dyspnea Code(s): R06.00 - DYSPNEA, UNSPECIFIED Status: Acute Qualifiers: Dyspnea type: shortness of breath Qualified Code(s): R06.02 - Shortness of breath; R06.00 - Dyspnea, unspecified; R06.01 - Orthopnea Comment: ? etiology, improved with bronchodilators, trial Solumedrol, Dulera 2 puffs BID - Plan cont current plan of care, respiratory therapy, incentive spirometry, out of bed /ambulate, DVT proph w/SCDs * .
--- NOTE | 2017-07-13 16:36 | PRG ---
DATE OF SERVICE: 07/13/2017 SUBJECTIVE: Mr. De La Paz has had no further stool output. He has no abdominal pain. He is tolerati ng a solid diet. He is little more short of breath today and his primary service is written Lasix to be given for him. OBJECTIVE: VITAL SIGNS: Temperature 98.4, pulse 75, blood pressure 137/64. GENERAL: He is in no acute distress. LUNGS: Few expiratory wheezes on bilateral lung [place]. HEART: Regular rate and rhythm. ABDOMEN: Soft, nontender, nondistended. Bowel sounds are present. EXTREMITIES: 1+ pitting lower extremity edema. LABORATORY DATA: His hemoglobin is 7.8. IMPRESSION: Diverticular bleed appears to be resolved. His hemoglobin still running in the 7.8 rang e. There is no ongoing overt bleeding apparent. Followup colonoscopy was negative. RECOMMENDATIONS: 1. One unit transfusion. 2. To receive Lasix as prescribed by the primary service. 3. I will sign off. Please call if GI can be of assistance.
[2017-07-13] MEDS ORDERED: Furosemide 20 MG/2 ML VIAL SLOW IVP SCH (17:00)
--- NOTE | 2017-07-13 17:00 | PRG ---
DATE OF SERVICE: 07/13/2017 SERVICE: Pulmonary Medicine. INTERVAL HISTORY: The patient tells me that he had a bowel movement and his blood has cleared. He d enies any current fevers, chills, nausea, or vomiting. He does get dizzy when he gets out of bed. T hat being said, he has a little bit of increasing dyspnea. Otherwise, he notes increasing shortness of breath whenever exerts himself. He got a dose of Lasix already and is hopefully going to make natalay e urine here soon. His repeat hemoglobin this afternoon is currently pending. If this is stable, he may transition home if his breathing opens . PHYSICAL EXAMINATION: VITAL SIGNS: Afebrile with T-max 99.3, pulse 74, blood pressure 137/56, respirations 17, saturation 96% on room air. GENERAL: Patient is awake, alert, in no apparent distress. LUNGS: Decent air entry. There is no prolonged expiratory phase. Dependent crackles are present. No rhonchi. HEART: Normal rate, regular. ABDOMEN: Soft, nontender, nondistended. Bowel sounds positive. MUSCULOSKELETAL: No cyanosis or clubbing. No pitting in the bilateral lower extremities. NEUROLOGIC: Grossly nonfocal. LABORATORY DATA: Hemoglobin 7.3. This is roughly stable. Blood sugars ranged from 91-178. Stool o ccult blood was previously positive. ASSESSMENT: 1. Acute blood loss anemia, resolved. 2. Lower gastrointestinal bleed secondary to suspected diverticular source. PLAN: If the patient's breathing opens up and his hemoglobin remains stable, he can be transitioned home. Pulmonary will continue to follow while the patient remains in this location however.
[2017-07-14 01:49] LABS: Hemoglobin 9.2 g/dL (14.0-18.0)
[2017-07-14 04:07] LABS: Anion Gap 9 mmol/L (10-20); BUN (Urea Nitrogen) 5 mg/dL (8.4-25.7); Calc. Creatinine Clearance 101 mL/min (70-130); Calcium 7.7 mg/dL (7.8-10.44); Carbon Dioxide 24 mmol/L (23-31); Chloride 109 mmol/L (98-107); Estimated GFR-MDRD Greater than 90; Glucose 114 mg/dL (83-110); Magnesium 1.7 mg/dL (1.6-2.6); Potassium 3.2 mmol/L (3.5-5.1); Sodium 139 mmol/L (136-145)
[2017-07-14 04:12] LABS: #Basophils 0.1 thou/uL (0.0-0.2); #Eosinphils 0.4 thou/uL (0.0-0.7); #Lymphocytes 1.7 thou/uL (1.20-3.40); #Monocytes 0.6 thou/uL (0.11-0.59); #Neutrophils 5.8 thou/uL (1.40-6.50); %Basophils 0.6 % (0.0-1.0); %Eosinophils 5.1 % (0.0-10.0); %Lymphocytes 19.7 % (21.0-51.0); %Monocytes 6.8 % (0.0-10.0); %Neutrophils 67.7 % (42.0-75.0); Mean Corpuscular HGB CONC 33.1 g/dL (32.0-36.0); Mean Corpuscular Hemoglobin 29.2 pg (27.0-31.0); Mean Platelet Volume 7.9 fL (7.4-10.4); Platelet Count 193 thou/uL (130-400); RBC Distribution Width 14.6 % (11.5-14.5); Red Blood Cell (RBC) Count 3.15 mill/uL (4.70-6.10); White Blood Cell (WBC) Count 8.5 thou/uL (4.8-10.8)
[2017-07-14] MEDS: Levothyroxine Sodium 25 MCG TAB PO SCH (06:16)
[2017-07-14] MEDS: Albuterol Sulfate 2.5 mg/3 ml Neb NEB SCH ×2 (08:00→13:35)
[2017-07-14] MEDS: Mometasone/Formoterol 120 PUFF INHALER INH SCH (08:14)
[2017-07-14] MEDS ORDERED: Furosemide 40 MG TAB PO SCH (09:00)
[2017-07-14] MEDS: Insulin Detemir 100 UNITS/ML 17 UNITS in Pre-Filled Syringe 1 EACH SC SCH (09:44)
[2017-07-14] MEDS: Ferrous Sulfate 325 MG TAB PO SCH (09:44)
[2017-07-14] MEDS: Carvedilol 3.125 MG TAB PO SCH (09:44)
[2017-07-14] MEDS: Potassium Chloride 20 MEQ TAB PO SCH ×2 (14:23→15:22)
[2017-07-14 15:53] VITALS: BP 135/62; TEMP 98
--- NOTE | 2017-07-14 16:24 | DIS ---
PRIMARY CARE PHYSICIAN: Elizabeth Medina M.D. DATE OF ADMISSION: 07/08/2017 DATE OF DISCHARGE: 07/14/2017 DISCHARGE DIAGNOSES: 1. Diverticular bleed. 2. Acute blood loss anemia. 3. Diabetes mellitus type 2. 4. Hypertension. 5. Chronic obstructive pulmonary disease. 6. Symptomatic anemia. 7. Hypothyroidism. 8. Chronic systolic congestive heart failure. 9. Demand ischemia. CONSULTATIONS: Gastroenterology, Dr. Bolivar and Dr. Quinn Hackett, followed by Dr. Jeremy Bell. PROCEDURES: 1. Colonoscopy on 07/10/[address] Josh Bolivar, which revealed nodular polypoid mucosa seen in the duodenal bulb, but otherwise normal upper gastro outside of his esophagogastroduodenoscopy. 2. Colonoscopy on 07/12/[address] Jeremy Bell, showed old blood in the right colon, but no acute bleeding and diverticulosis throughout the entire colon. HISTORY AND PHYSICAL: Mr. De La Paz is a 71-year-old white male with a history of diverticulosis, micheline betes, hypertension, COPD, who presents to the Emergency Department with black stool. He has a histo ry of a CABG [address] Boggs and is the patient under Dr. Bliss. He has been on aspirin for quite a while. He started noticing black stools for a few days prior to admission and then trans itioned to maroon colored stools. No abdominal pain. The patient was a direct admit after presenting to the hospital from his primary care physician shahnaz leonardo of black stools. Apparently in the office hemoglobin there was 6.8. HOSPITAL COURSE: The patient was seen and examined on arrival by Dr. Heard, and admitted to the hosp ital. Started on IV fluids, serial H&Hs, given 1 unit packed red blood cells and GI was consulted. Overnight 07/08 and 07/09, the patient continued to have some bleeding. GI was consulted and was see n by Dr. Bolivar. Patient was prepped for EGD in the morning to rule out upper GI bleed. He was trans ferred to the ICU for rapid prep. By 07/10/2017, he was stable. He was taken for EGD that showed some polypoid hyperplasia, but otherw ise normal EGD. Tagged red blood cell scan was done on 07/10/2017 that showed no scintigraphic evide nce of ongoing hemorrhage. He was followed the day by Dr. Quinn Hackett, who is the patient's primary g astroenterologist. He does have a history of diverticular hemorrhage in the past and at one point un dergone colonoscopy and attempted hemostasis with Hemoclip there was unsuccessful. Per Dr. Hackett's no nayely that he said he had gone to colonoscopy the day prior and had a persistent bleed with a failed cl ip. I do not see a record of that note. By 07/11/2017, the patient was continued to have stable blood counts. Diet was advanced and plans we re made at discharge him on 07/12 if he continued to improve. On 07/12/2017, he began having some bloody bowel movements again. Hemoglobin trended down and he was taken back to the endoscopy suite for repeat colonoscopy showed no active bleed. Took over the day, the patient was monitored, he was hemodynamically stable. On 07/13/2017, he complained of shortness of breath. Hemoglobin was the day before dropped to 7.3, t he repeat was shown to be 7.8. He was complaining of little shortness of breath and dyspnea on exert ion. GI recommended on the unit which he was given. Overnight today, he had a normal bowel movement, was eating regular food. Hemoglobin is up to 9.1 an d is stable. He was discharged home in stable condition. PHYSICAL EXAMINATION: The patient was seen and examined on the day of discharge. Discharge plan and disposition was discussed with the patient, [id number] evidence at bedside. DISCHARGE MEDICATIONS: 1. Metformin 750 mg p.o. b.i.d. 2. Theophylline 300 mg daily. 3. Potassium chloride 20 mEq daily. 4. Zestril 40 mg p.o. q.a.m. 5. Levothyroxine 50 mcg daily. 6. Lantus 17 units subcu b.i.d. 7. Lasix 40 mg daily. 8. Fluticasone/salmeterol. 9. Advair 500/50 one puff inhale b.i.d. 10. Iron sulfate 325 mg daily. 11. Doxazosin 50 mg daily. 12. Carvedilol 3.25 mg p.o. b.i.d. 13. Aspirin 81 mg daily to be on hold for now. 14. Amlodipine 5 mg daily. 15. Albuterol sulfate 2 puffs nebulizer q.4 hours p.r.n. and 1 vial nebulize q.i.d. p.r.n. FOLLOWUP APPOINTMENTS: 1. Primary care physician Dr. Medina in [address] Quinn Hackett in 2-3 weeks per his clinic schedule. DISCHARGE CONDITION: Stable. DISPOSITION: Will be discharged home via private vehicle. DISCHARGE ACTIVITY: Per cardiopulmonary limits. DISCHARGE DIET: Heart healthy diabetic diet recommended.
== END 2017-07-14 16:50 | disposition home or self-care (01) | DRG 378 ==
LOC: 2NO 18:06 → CCU 07-09 16:57 → IMCU/EMU 07-11 07:30
PROVIDERS: ADMIT Family Medicine; ATTEND Family Medicine
PROC: 0DJ08ZZ Inspection of Upper Intestinal Tract, Via Natural or Artificial Opening Endoscopic (ICD-10-PCS; 2017-07-09)
PROC: 0W3P8ZZ Control Bleeding in Gastrointestinal Tract, Via Natural or Artificial Opening Endoscopic (ICD-10-PCS; 2017-07-09)
PROC: 0DJD8ZZ Inspection of Lower Intestinal Tract, Via Natural or Artificial Opening Endoscopic (ICD-10-PCS; principal; 2017-07-12)
DX: K57.31 Diverticulosis of large intestine without perforation or abscess with bleeding (principal); D62 Acute posthemorrhagic anemia; I24.8 Other forms of acute ischemic heart disease; E66.01 Morbid (severe) obesity due to excess calories; I11.0 Hypertensive heart disease with heart failure; I50.22 Chronic systolic (congestive) heart failure; J45.41 Moderate persistent asthma with (acute) exacerbation; E11.9 Type 2 diabetes mellitus without complications; J44.9 Chronic obstructive pulmonary disease, unspecified; I25.10 Atherosclerotic heart disease of native coronary artery without angina pectoris; Z95.1 Presence of aortocoronary bypass graft; Z79.82 Long term (current) use of aspirin; Z79.4 Long term (current) use of insulin; Z79.84 Long term (current) use of oral hypoglycemic drugs; K64.4 Residual hemorrhoidal skin tags; K64.8 Other hemorrhoids; E03.9 Hypothyroidism, unspecified; R16.1 Splenomegaly, not elsewhere classified; E78.5 Hyperlipidemia, unspecified; Z68.29 Body mass index [BMI] 29.0-29.9, adult; K63.5 Polyp of colon
CPT/HCPCS: 36415; 36416; 36430; 71046; 74176; 78278; 80048; 80053; 80061; 81001; 82043; 82274; 83036; 83735; 83880; 84443; 85014; 85018; 85025; 85049; 85610; 85730; 86850; 86900; 86901; 94664; A4216; A9604; C9113; G8978-GP-CI; G8979-GP-CI; G8980-GP-CI; G8987-GO-CI; G8988-GO-CI; G8989-GO-CI; J1644; J1815; J2001; J2704; J7050; J7611; P9016; P9059

== ENCOUNTER 2019-07-15 07:22 | Emergency (ER) | payer MEDICARE, OTHER ==
--- NOTE | 2019-07-15 08:26 | RAD ---
XR Tib Fib Lt Leg 2 View HISTORY: Trauma, left leg pain COMPARISON: None. FINDINGS: The left tibia and fibula appear intact.
--- NOTE | 2019-07-15 08:28 | RAD ---
Right lower leg 2 views HISTORY: Leg injury. FINDINGS: Tibia and fibula are intact. There are mild degenerative changes of the knee and ankle. No acute fracture or dislocation. Prominent calcification over the arteries. IMPRESSION: No acute osseous abnormalities are demonstrated. Atherosclerosis.
[2019-07-15] MEDS ORDERED: HYDROcodone/Acetaminophen 5/325 mg Tablet ONE (08:29)
--- NOTE | 2019-07-15 08:30 | RAD ---
Left foot 3 views HISTORY: Left foot injury. FINDINGS: Lisfranc joint alignment is anatomic. Plantar arch is maintained. Mild/moderate osteoarthri tic changes throughout the foot. Soft tissue swelling about the forefoot. There is mild hallux valgus with minimal bunion deformity. Very slight lateral subluxation at the first metatarsophalangea l joint where subchondral sclerosis is also most pronounced. Subcortical cysts about the first tarsometatarsal joint where osteophytosis is also pronounced. Subtle well-circumscribed 0.5 cm lucenc y at the base of the third metatarsal has a benign appearance. No acute fracture, dislocation, or aggressive osseous erosions. IMPRESSION: Soft tissue swelling. Osteoarthritic changes. No acute osseous abnormalities are demonstrated.
--- NOTE | 2019-07-15 08:34 | RAD ---
XR Foot Rt 3 View STANDARD HISTORY: Injury, right foot pain FINDINGS: No fracture or dislocation is identified. Degenerative changes are present.
[2019-07-15] MEDS ORDERED: Dexamethasone 10 MG/ML VIAL ONE (09:00)
[2019-07-15] MEDS ORDERED: Ketorolac Tromethamine 30 MG/ML VIAL ONE ×2 (09:00→17:16)
[2019-07-15 12:00] LABS: #Lymphocytes 0.5 thou/uL (1.20-3.40); #Monocytes 0.6 thou/uL (0.11-0.59); #Neutrophils 12.3 thou/uL (1.40-6.50); %Eosinophils 0.2 % (0.0-10.0); %Lymphocytes 3.9 % (21.0-51.0); %Monocytes 4.1 % (0.0-10.0); %Neutrophils 91.8 % (42.0-75.0); Hemoglobin 11.7 g/dL (14.0-18.0); Mean Corpuscular Hemoglobin 27.2 pg (27.0-31.0); Platelet Count 119 thou/uL (130-400); Platelet Morphology Comment Appears Decreased; RBC Distribution Width 13.9 % (11.5-14.5); RBC Morphology Normal; Red Blood Cell (RBC) Count 4.29 mill/uL (4.70-6.10); White Blood Cell (WBC) Count 13.4 thou/uL (4.8-10.8)
[2019-07-15 12:13] LABS: ALT (SGPT) 7 U/L (8-55); AST (SGOT) 8 U/L (5-34); Albumin 3.6 g/dL (3.4-4.8); Alkaline Phosphatase 45 U/L (40-110); Anion Gap 14 mmol/L (10-20); BUN (Urea Nitrogen) 21 mg/dL (8.4-25.7); Bilirubin, Total 0.9 mg/dL (0.2-1.2); Calc. Creatinine Clearance 0 mL/min (70-130); Calcium 8.7 mg/dL (7.8-10.44); Carbon Dioxide 30 mmol/L (23-31); Chloride 100 mmol/L (98-107); Estimated GFR-MDRD 68; Globulin 2.7 g/dL (2.4-3.5); Glucose 224 mg/dL (83-110); Potassium 3.3 mmol/L (3.5-5.1); Protein, Total 6.3 g/dL (5.8-8.1); Sodium 141 mmol/L (136-145)
[2019-07-15 13:21] LABS: Bacteria/HPF None Seen HPF (None Seen); Bilirubin 1+ (Negative); Blood, Urine 2+ (Negative); Clarity Clear (Clear); Glucose, Urine (Dipstick) 30 mg/dL (Negative); Leukocyte Negative Leu/uL (Negative); Nitrite Negative (Negative); Protein, Urine (Dipstick) 300 mg/dL (Neg-Trace); Squamous Epithelial 0-3 HPF (0-3)
== END 2019-07-15 18:56 ==
LOC: ERS 07:22
DX: M79.672 Pain in left foot (principal); R26.2 Difficulty in walking, not elsewhere classified; E03.9 Hypothyroidism, unspecified; E11.9 Type 2 diabetes mellitus without complications; E78.5 Hyperlipidemia, unspecified; I10 Essential (primary) hypertension; J45.909 Unspecified asthma, uncomplicated; I48.91 Unspecified atrial fibrillation; I25.10 Atherosclerotic heart disease of native coronary artery without angina pectoris; Z79.51 Long term (current) use of inhaled steroids; Z79.899 Other long term (current) drug therapy; Z79.84 Long term (current) use of oral hypoglycemic drugs; Z79.891 Long term (current) use of opiate analgesic; Z79.82 Long term (current) use of aspirin
CPT/HCPCS: 36415; 80053; 81003; 81015; 85025; 93005; 96372; J1100; J1885

== ENCOUNTER 2019-08-10 09:25 | Emergency (ER) | payer MEDICARE, OTHER ==
[2019-08-10 11:18] LABS: #Eosinphils 0.4 thou/uL (0.0-0.7); #Lymphocytes 1.2 thou/uL (1.20-3.40); #Monocytes 0.8 thou/uL (0.11-0.59); %Basophils 0.1 % (0.0-1.0); %Eosinophils 4.3 % (0.0-10.0); %Lymphocytes 12.4 % (21.0-51.0); %Monocytes 8.4 % (0.0-10.0); %Neutrophils 74.8 % (42.0-75.0); Hemoglobin 11.2 g/dL (14.0-18.0); Mean Corpuscular HGB CONC 32.7 g/dL (32.0-36.0); Mean Corpuscular Hemoglobin 27.7 pg (27.0-31.0); Mean Corpuscular Volume 84.8 fL (78.0-98.0); Platelet Count 139 thou/uL (130-400); RBC Distribution Width 14.1 % (11.5-14.5); Red Blood Cell (RBC) Count 4.05 mill/uL (4.70-6.10); White Blood Cell (WBC) Count 9.4 thou/uL (4.8-10.8)
[2019-08-10 11:44] LABS: ALT (SGPT) 11 U/L (8-55); AST (SGOT) 7 U/L (5-34); Albumin 3.4 g/dL (3.4-4.8); Alkaline Phosphatase 59 U/L (40-110); Anion Gap 11 mmol/L (10-20); BUN (Urea Nitrogen) 9 mg/dL (8.4-25.7); Bilirubin, Total 0.7 mg/dL (0.2-1.2); Calc. Creatinine Clearance 0 mL/min (70-130); Calcium 8.3 mg/dL (7.8-10.44); Carbon Dioxide 31 mmol/L (23-31); Chloride 102 mmol/L (98-107); Estimated GFR-MDRD Greater than 90; Globulin 2.3 g/dL (2.4-3.5); Glucose 100 mg/dL (83-110); Potassium 3.5 mmol/L (3.5-5.1); Protein, Total 5.7 g/dL (5.8-8.1); Sodium 140 mmol/L (136-145)
[2019-08-10] MEDS ORDERED: HYDROcodone/Acetaminophen 10/325 mg Tablet ONE (12:07)
[2019-08-10 12:54] LABS: Bilirubin Negative (Negative); Blood, Urine Negative (Negative); Clarity Clear (Clear); Glucose, Urine (Dipstick) Normal (Negative); Leukocyte Negative Leu/uL (Negative); Nitrite Negative (Negative); Protein, Urine (Dipstick) Negative (Neg-Trace); Urobilinogen Normal mg/dL (Less than 2)
== END 2019-08-10 13:21 | disposition home or self-care (01) ==
LOC: ERS 09:25
DX: E11.42 Type 2 diabetes mellitus with diabetic polyneuropathy (principal); E03.9 Hypothyroidism, unspecified; E78.5 Hyperlipidemia, unspecified; I10 Essential (primary) hypertension; J45.909 Unspecified asthma, uncomplicated; I25.10 Atherosclerotic heart disease of native coronary artery without angina pectoris; I48.91 Unspecified atrial fibrillation; Z79.51 Long term (current) use of inhaled steroids; Z79.899 Other long term (current) drug therapy; Z79.4 Long term (current) use of insulin; Z79.82 Long term (current) use of aspirin
CPT/HCPCS: 36415; 80053; 81003; 85025; 99283

== ENCOUNTER 2019-08-11 21:04 | Emergency (ER) | payer MEDICARE, OTHER ==
[2019-08-11] MEDS ORDERED: Morphine 4 MG/ML VIAL ONE (21:44)
[2019-08-11] MEDS ORDERED: Morphine 2 MG/ML SYRINGE ONE (21:45)
== END 2019-08-11 22:19 | disposition home or self-care (01) ==
LOC: ERS 21:04
DX: G62.9 Polyneuropathy, unspecified (principal); R60.0 Localized edema; E03.9 Hypothyroidism, unspecified; E11.9 Type 2 diabetes mellitus without complications; I10 Essential (primary) hypertension; E78.5 Hyperlipidemia, unspecified; J45.909 Unspecified asthma, uncomplicated; I25.10 Atherosclerotic heart disease of native coronary artery without angina pectoris; I48.91 Unspecified atrial fibrillation; E78.00 Pure hypercholesterolemia, unspecified; Z79.51 Long term (current) use of inhaled steroids; Z79.84 Long term (current) use of oral hypoglycemic drugs; Z79.899 Other long term (current) drug therapy; Z79.82 Long term (current) use of aspirin
CPT/HCPCS: 96372; 99283; J2270

== ENCOUNTER 2019-08-13 11:45 | Inpatient (IN) | payer MEDICARE, OTHER ==
[2019-08-13 12:34] LABS: #Eosinphils 0.3 thou/uL (0.0-0.7); #Lymphocytes 1.3 thou/uL (1.20-3.40); #Monocytes 0.8 thou/uL (0.11-0.59); %Basophils 0.2 % (0.0-1.0); %Monocytes 7.3 % (0.0-10.0); %Neutrophils 78.5 % (42.0-75.0); Hemoglobin 11.1 g/dL (14.0-18.0); Mean Corpuscular HGB CONC 32.3 g/dL (32.0-36.0); Mean Corpuscular Hemoglobin 27.5 pg (27.0-31.0); Mean Corpuscular Volume 85.3 fL (78.0-98.0); Mean Platelet Volume 9.8 fL (7.4-10.4); Platelet Count 184 thou/uL (130-400); RBC Distribution Width 14.2 % (11.5-14.5); Red Blood Cell (RBC) Count 4.03 mill/uL (4.70-6.10); White Blood Cell (WBC) Count 11.4 thou/uL (4.8-10.8)
[2019-08-13 12:55] LABS: ALT (SGPT) 7 U/L (8-55); AST (SGOT) 7 U/L (5-34); Albumin 3.3 g/dL (3.4-4.8); Alkaline Phosphatase 60 U/L (40-110); Anion Gap 15 mmol/L (10-20); BUN (Urea Nitrogen) 20 mg/dL (8.4-25.7); Bilirubin, Total 0.7 mg/dL (0.2-1.2); Calc. Creatinine Clearance 0 mL/min (70-130); Calcium 8.1 mg/dL (7.8-10.44); Carbon Dioxide 25 mmol/L (23-31); Chloride 102 mmol/L (98-107); Estimated GFR-MDRD 51; Globulin 2.2 g/dL (2.4-3.5); Glucose 152 mg/dL (83-110); Protein, Total 5.5 g/dL (5.8-8.1); Sodium 137 mmol/L (136-145)
--- NOTE | 2019-08-13 15:32 | RAD ---
PORTABLE CHEST ONE VIEW: 08/13/19 at 2:49 p.m. HISTORY: Cough, congestion. FINDINGS: Comparison made with exam of 07/09/17. Changes of median sternotomy again seen. The heart size is borderline. There is blunting of the left costophrenic angle likely due to scarring. No lobar consolidation, pneumothoraces, [facility] [place] or pleural effusions are seen. IMPRESSION: No acute process. POS: [facility]
[2019-08-13 19:54] LABS: Bacteria/HPF None Seen HPF (None Seen); Bilirubin Negative (Negative); Blood, Urine Negative (Negative); Clarity Turbid (Clear); Glucose, Urine (Dipstick) Normal (Negative); Leukocyte Negative Leu/uL (Negative); Nitrite Negative (Negative); Protein, Urine (Dipstick) 30 mg/dL (Neg-Trace); RBC/HPF 0-3 HPF (0-3); Renal Epithelial 0-3 HPF (None Seen)
[2019-08-14 00:59] VITALS: BMI 31.3
[2019-08-14] MEDS: Albuterol Sulfate 2.5 mg/3 ml Neb NEB PRN ×3 (02:07→19:27)
[2019-08-14] MEDS ORDERED: Dextrose 5% in Water 1,000 ML IV PRN ×2 (02:37→11:00)
[2019-08-14] MEDS ORDERED: HumaLOG 300 UNITS/3 ML VIAL SC PRN ×2 (02:37)
[2019-08-14] MEDS ORDERED: traMADol HCl 50 MG TAB PO PRN ×2 (02:37→10:56)
[2019-08-14] MEDS ORDERED: Dextrose 50% Abboject 50 ML SYRINGE SLOW IVP PRN ×2 (02:37→11:00)
[2019-08-14] MEDS ORDERED: HYDROcodone/Acetaminophen 5/325 mg Tablet PO SCH (04:30)
[2019-08-14 05:21] LABS: #Eosinphils 0.4 thou/uL (0.0-0.7); #Lymphocytes 1.3 thou/uL (1.20-3.40); #Monocytes 0.7 thou/uL (0.11-0.59); #Neutrophils 5.6 thou/uL (1.40-6.50); %Basophils 0.5 % (0.0-1.0); %Eosinophils 4.9 % (0.0-10.0); %Lymphocytes 15.8 % (21.0-51.0); %Monocytes 9.2 % (0.0-10.0); %Neutrophils 69.6 % (42.0-75.0); Hemoglobin 9.8 g/dL (14.0-18.0); Mean Corpuscular HGB CONC 31.9 g/dL (32.0-36.0); Mean Corpuscular Hemoglobin 26.7 pg (27.0-31.0); Mean Corpuscular Volume 83.6 fL (78.0-98.0); Mean Platelet Volume 9.4 fL (7.4-10.4); Platelet Count 158 thou/uL (130-400); Red Blood Cell (RBC) Count 3.68 mill/uL (4.70-6.10)
[2019-08-14 05:40] LABS: Anion Gap 11 mmol/L (10-20); BUN (Urea Nitrogen) 22 mg/dL (8.4-25.7); Calc. Creatinine Clearance 67 mL/min (70-130); Calcium 8.2 mg/dL (7.8-10.44); Carbon Dioxide 28 mmol/L (23-31); Chloride 101 mmol/L (98-107); Estimated GFR-MDRD 65; Glucose 110 mg/dL (83-110); Potassium 3.9 mmol/L (3.5-5.1); Sodium 136 mmol/L (136-145)
[2019-08-14] MEDS ORDERED: PROVENTIL INHALER 6.7 G (200 INHALATIONS) INH PRN (10:56)
[2019-08-14] MEDS ORDERED: Acetaminophen 325 MG TAB PO PRN (10:58)
[2019-08-14] MEDS ORDERED: Ondansetron PF 4 MG/2 ML Vial IVP PRN (10:58)
[2019-08-14] MEDS ORDERED: Senokot S 8.6-50 MG TAB PO PRN (10:58)
[2019-08-14] MEDS: Gabapentin 100 MG CAP PO SCH ×2 (14:50→20:35)
[2019-08-14] MEDS ORDERED: methylPREDNISolone Sod Succ 40 MG VIAL IVP SCH (16:00)
[2019-08-14] MEDS ORDERED: HYDROcodone/Acetaminophen 5/325 mg Tablet PO PRN (16:11)
[2019-08-14] MEDS: Carvedilol 6.25 MG TAB PO SCH (16:34)
[2019-08-14] MEDS: predniSONE 20 MG TAB PO SCH (16:34)
[2019-08-14] MEDS ORDERED: Carvedilol 3.125 MG TAB PO SCH (17:00)
[2019-08-14] MEDS: Mometasone/Formoterol 120 PUFF INHALER INH SCH (19:29)
[2019-08-14] MEDS: Insulin Glargine 17 UNITS in Pre-Filled Syringe 1 EACH SC SCH (20:34)
[2019-08-14] MEDS: Torsemide 20 MG TAB PO SCH (20:35)
[2019-08-14] MEDS: Atorvastatin Calcium 10 MG TAB PO SCH (20:35)
[2019-08-14] MEDS ORDERED: SALMETEROL IH SCH (21:00)
[2019-08-14] MEDS ORDERED: FLUTICASONE IH SCH (21:00)
--- NOTE | 2019-08-14 22:11 | HP ---
PRESENTING COMPLAINT: Swelling and pain in bilateral feet, episode of hypotension. HISTORY OF PRESENT ILLNESS: The patient with a past medical history of coronary artery disease status post CABG, history of asthma, history of chronic diastolic congestive heart failure, diabetes mellitus, hypertension, history of gout, presented with pain and swelling of bilateral feet. The patient went to see his PCP and blood pressure was low at 74/44 as per patient. He was sent to hospital for further evaluation. The patient denies any headache, any dizziness. Complains of nausea. Denies any vomiting, diarrhea, or constipation. Denies any abdominal pain, chest pain. Has shortness of breath, which is chronic as per patient. Denies urinary complaints. Complains of bilateral transmetatarsal joint 1st toe area pain with more prominent swelling of left foot. The patient is being admitted for further evaluation. REVIEW OF SYSTEMS: As mentioned above in the HPI. All other systems are negative. PAST MEDICAL HISTORY: As mentioned above in the HPI. PAST SURGICAL HISTORY: History of CABG, history of bladder surgery, history of colon surgery. ALLERGIES: TO EGGS. SOCIAL HISTORY: The patient denies smoking. Drinks 1 to 2 drinks of beer daily. Denies any drug abuse. FAMILY HISTORY: Congestive heart failure. HOME MEDICATIONS: Potassium chloride, metformin, insulin glargine, theophylline, lisinopril, aspirin, levothyroxine, amlodipine, fluticasone, ferrous sulfate, gabapentin, albuterol, tramadol, montelukast, atorvastatin, torsemide, carvedilol. PHYSICAL EXAMINATION: VITAL SIGNS: Blood pressure 138/75, temperature 98.5, pulse 63, respirations 18, and oxygen saturation 94%. GENERAL: The patient lying in bed comfortably, in no distress. HEENT: Conjunctivae normal. Oral mucosa moist. NECK: Supple. No JVD. No lymphadenopathy. CHEST: Normal vesicular breathing. No rhonchi. No wheezing. HEART: Heart sounds normal. No murmur. No gallop. No rub. ABDOMEN: Soft, benign, nontender. No visceromegaly. EXTREMITIES: Swelling, left foot area noted. Also, redness and swelling, bilateral metacarpophalangeal joint noted. LABORATORY DATA: UA unremarkable. CBC unremarkable except hemoglobin 9.8, platelet 158, white blood cells 8.0. BMP unremarkable except creatinine 1.11, blood sugar 105, 172, 117. Troponin negative. UA negative. Blood culture, currently negative. Chest x-ray, no acute process. IMPRESSION: 1. Bilateral lower feet area pain with left foot swelling and redness noted in big toe area, possible gout flare. MRI performed on 07/20/2019 showed high-grade partial tearing of anterior tibiofibular ligament, showing high ankle sprain and large tibia joint effusion tenosynovial fluid noted with a quiescent posttraumatic and inflammatory arthritis. We will see if short course of steroid gives improvement as patient has history of gouty arthritis in the past. We will also get Ortho evaluation. We will get a Physical Therapy evaluation. The patient was recently in rehab and had an MRI on 07/20/2019. Continue pain medication as needed. 2. Questionable low blood pressure episode at PCP's office. The patient is currently asymptomatic. Denies any chest pain or shortness of breath. UA and chest x-ray negative for acute finding. Blood pressure is stable. We will continue to monitor blood pressure. Hold lisinopril at present. We will start in the morning. 3. History of coronary artery disease, status post CABG in the past. Currently, denies any chest pain. Troponin present on admission are negative. 4. Diabetes mellitus. Continue sliding scale insulin. Continue to monitor blood sugar. 5. Hypertension. Continue monitoring blood pressure. As mentioned above, hold lisinopril at present and we will start in the morning. 6. Deep venous thrombosis and gastrointestinal prophylaxis. Plan discussed with the patient and nursing staff in detail. 7. History of chronic obstructive pulmonary disease and asthma, currently looks compensated. Job ID: [id number]
[2019-08-15] MEDS: Albuterol Sulfate 2.5 mg/3 ml Neb NEB PRN ×2 (02:52→18:46)
[2019-08-15] MEDS: HumaLOG 300 UNITS/3 ML VIAL SC PRN ×4 (05:15→20:21)
[2019-08-15 05:59] LABS: #Lymphocytes 0.5 thou/uL (1.20-3.40); #Monocytes 0.1 thou/uL (0.11-0.59); #Neutrophils 3.1 thou/uL (1.40-6.50); %Eosinophils 0.6 % (0.0-10.0); %Monocytes 3.1 % (0.0-10.0); %Neutrophils 82.3 % (42.0-75.0); Hemoglobin 10.9 g/dL (14.0-18.0); Mean Corpuscular HGB CONC 33.3 g/dL (32.0-36.0); Mean Corpuscular Hemoglobin 27.6 pg (27.0-31.0); Mean Platelet Volume 9.2 fL (7.4-10.4); Platelet Count 156 thou/uL (130-400); RBC Distribution Width 13.8 % (11.5-14.5); Red Blood Cell (RBC) Count 3.95 mill/uL (4.70-6.10); White Blood Cell (WBC) Count 3.7 thou/uL (4.8-10.8)
[2019-08-15 06:31] LABS: Anion Gap 11 mmol/L (10-20); BUN (Urea Nitrogen) 16 mg/dL (8.4-25.7); Calc. Creatinine Clearance 89 mL/min (70-130); Calcium 8.7 mg/dL (7.8-10.44); Carbon Dioxide 29 mmol/L (23-31); Chloride 101 mmol/L (98-107); Estimated GFR-MDRD 90; Glucose 236 mg/dL (83-110); Potassium 4.1 mmol/L (3.5-5.1); Sodium 137 mmol/L (136-145); Uric Acid 11.8 mg/dL (3.5-7.2)
[2019-08-15] MEDS: Mometasone/Formoterol 120 PUFF INHALER INH SCH ×2 (07:11→18:59)
[2019-08-15] MEDS: Gabapentin 100 MG CAP PO SCH ×3 (08:54→20:20)
[2019-08-15] MEDS: Levothyroxine Sodium 25 MCG TAB PO SCH (08:54)
[2019-08-15] MEDS: Aspirin 81 mg Enteric Coated Tablet PO SCH (08:54)
[2019-08-15] MEDS: Ferrous Sulfate 325 MG TAB PO SCH (08:54)
[2019-08-15] MEDS: Carvedilol 6.25 MG TAB PO SCH ×2 (08:54→16:55)
[2019-08-15] MEDS: Montelukast Sodium 10 mg Tablet PO SCH (08:55)
[2019-08-15] MEDS: predniSONE 20 MG TAB PO SCH ×2 (08:55→16:55)
[2019-08-15] MEDS: Amlodipine 5 MG TAB PO SCH (08:55)
[2019-08-15] MEDS: Potassium Chloride 20 MEQ TAB PO SCH (08:55)
[2019-08-15] MEDS: Lisinopril 20 MG TAB PO SCH (08:55)
[2019-08-15] MEDS: Torsemide 20 MG TAB PO SCH ×2 (08:57→20:21)
[2019-08-15] MEDS: Doxazosin Mesylate 4 MG TAB PO SCH (08:57)
[2019-08-15] MEDS: Insulin Glargine 17 UNITS in Pre-Filled Syringe 1 EACH SC SCH ×2 (08:58→20:21)
[2019-08-15] MEDS: Enoxaparin Sodium 40 MG/0.4 ML SYRINGE SC SCH (08:58)
[2019-08-15] MEDS ORDERED: Non-Formulary Item 1 EACH (Ferrous Sulfate [Ferrous Sulfate] 325 MG) PO SCH (09:00)
[2019-08-15] MEDS ORDERED: DOXAZOSIN MESYLATE PO SCH (09:00)
--- NOTE | 2019-08-15 11:56 | CON ---
DATE OF CONSULTATION: 08/15/2019 CHIEF COMPLAINT: Foot and ankle pain. HISTORY OF PRESENT ILLNESS: Mr. De La Paz is a 73-year-old male, who presented to the hospital approximately 2 days ago for his bilateral foot and ankle pain. He also had hypotension at that time. He was admitted to the hospital for workup. He had a MRI completed of the left foot and ankle several weeks ago as well. He has a history of gout. He has been started on steroid treatment for gout. He has improved significantly over the last two days. He is able to ambulate now or as prior to this, he could not. He has better motion. I was consulted to ensure that he had no infection in the joint or other condition that might require surgical intervention. The patient is stable. He is talkative. No distress. PAST MEDICAL HISTORY: Fairly extensive. The patient has a history of coronary artery disease. He has had a CABG in the past. He has congestive heart failure, diabetes, hypertension, and gout. PAST SURGICAL HISTORY: Previous coronary artery bypass graft, bladder surgery, and history of colon surgery. ALLERGIES: EGGS. SOCIAL HISTORY: The patient drinks beer daily. Denies tobacco or drug use. FAMILY MEDICAL HISTORY: Congestive heart failure. IMAGES: MRI of the left foot and ankle is reviewed. This shows a large effusion of the left ankle. He also has some diffuse swelling in the dorsal soft tissues. No abscess or loculation is identified. PHYSICAL EXAMINATION: VITAL SIGNS: Temperature is 97.8, pulse is 79, blood pressure is 152/73, and oxygen saturation 98%. GENERAL: He is alert, sitting upright, in no apparent distress. HEENT: Normocephalic and atraumatic. RESPIRATORY: Breathing comfortably. ABDOMEN: Soft, nontender, and nondistended. MUSCULOSKELETAL: The patient's left lower extremity has very faint erythema. He has dorsal foot swelling. Small effusion at the ankle. He is able to flex and extend the ankle as well as the toes and forefoot without significant discomfort. He has some pain to deep palpation of the first MTP joint. The right foot has some effusion and swelling around the right MTP joint. He reports his foot appearance is much better than two days ago. IMPRESSION: Gout flare of the bilateral feet and left ankle. PLAN: At this point, the patient is already on steroid treatment. I would encourage continuing this. He likely could be treated with anti-inflammatory medications as well. He could be started on a medication to bring down his uric acid level such as allopurinol, I will leave this up to his primary care physician. No need for surgical intervention. He does not seem to have an infectious process. We will sign off for now, but are available if any concerns arise. Job ID: [id number]
--- NOTE | 2019-08-15 17:03 | PDOC.HOSPP ---
- Subjective Subjective: Follow-up evaluation on 73-year-old gentleman with bilateral gout flair left foot greater than right. Patient states that after he received IV steroids he has been doing significantly better. Patient is able to put weight on his foot, though he is not been walking any significant distance. With several gout flares will be placing the patient on allopurinol, however in the acute setting allopurinol has been shown to make acute flares worse. We will wait another day or so before starting allopurinol. Will give them one time dose of colchicine. I discussed these findings to the patient and his family at bedside, time was given for questions, all answered in detail. May benefit from inpatient rehab. - Objective Vital Signs & Weight: Vital Signs (12 hours) Temp Pulse Resp BP BP Pulse Ox 08/15/19 15:22 98.6 F 72 16 127/74 95 08/15/19 10:39 98.1 F 69 16 124/73 97 08/15/19 08:55 79 152/73 H 08/15/19 08:54 152/73 H 08/15/19 07:15 97.8 F 79 16 152/73 H 98 Weight Weight 177 lb I&O: 08/14/19 08/15/19 08/16/19 06:59 06:59 07:59 Intake Total 604 1240 750 Output Total 200 1700 400 Balance 404 -460 350 Result Diagrams: 08/15/19 05:44 08/15/19 05:44 Additional Labs: Accuchecks 08/15/19 08/15/19 08/15/19 15:29 10:44 05:18 POC Glucose 178 H 213 H 248 H 08/14/19 20:37 POC Glucose 229 H Radiology Reviewed by me: Yes Hospitalist ROS - Review of Systems All other systems reviewed; all pertinent +/- noted in HPI/Subj - Medication Medications: Active Medications Generic Name Dose Route Start Last Admin Trade Name Freq PRN Reason Stop Dose Admin Hydrocodone Bitart/Acetaminophen 1 tab 08/14/19 16:11 08/14/19 16:34 [place] 5/325 PO 1 tab Q6H PRN Administration Pain 4-6 Albuterol Sulfate 2.5 mg 08/14/19 00:48 08/15/19 02:52 Ventolin NEB 2.5 mg [id number] PRN Administration Wheezing Amlodipine Besylate 5 mg 08/15/19 09:00 08/15/19 08:55 Norvasc PO 5 mg DAILY CLAY Administration Aspirin 81 mg 08/15/19 09:00 08/15/19 08:54 Ecotrin PO 81 mg DAILY CLAY Administration Atorvastatin Calcium 10 mg 08/14/19 21:00 08/14/19 20:35 Lipitor PO 10 mg HS CLAY Administration Carvedilol 12.5 mg 08/14/19 17:00 08/15/19 08:54 Coreg PO 12.5 mg BID-WM CLAY Administration Doxazosin Mesylate 16 mg 08/15/19 09:00 08/15/19 08:57 Cardura PO 16 mg DAILY CLAY Administration Enoxaparin Sodium 40 mg 08/15/19 09:00 08/15/19 08:58 Lovenox SC 40 mg 0900 CLAY Administration Ferrous Sulfate 325 mg 08/15/19 09:00 08/15/19 08:54 Feosol PO 325 mg DAILY CLAY Administration Gabapentin 100 mg 08/14/19 15:00 08/15/19 14:56 Neurontin PO 100 mg TID CLAY Administration Insulin Glargine 17 units/ 0.17 mls @ 0 mls/hr 08/14/19 21:00 08/15/19 08:58 Miscellaneous Medication SC 0.17 mls BID CLAY Administration Insulin Human Lispro 0 units 08/14/19 11:00 08/15/19 12:02 Humalog SC 3 unit .MILD SLIDING SCALE PRN Administration Mild Correctional Scale Levothyroxine Sodium 25 mcg 08/15/19 09:00 08/15/19 08:54 Synthroid PO 25 mcg DAILY CLAY Administration Lisinopril 20 mg 08/15/19 09:00 08/15/19 08:55 Zestril PO 20 mg DAILY CLAY Administration Mometasone Furoate/Formoterol Fumar 2 puff 08/14/19 18:30 08/15/19 07:11 Dulera 200 Mcg/5 Mcg Inhaler INH 2 puff BID-RT CLAY Administration Montelukast Sodium 10 mg 08/15/19 09:00 08/15/19 08:55 Singulair PO 10 mg DAILY CLAY Administration Potassium Chloride 20 meq 08/15/19 09:00 08/15/19 08:55 K-Dur PO 20 meq DAILY CLAY Administration Prednisone 20 mg 08/14/19 17:00 08/15/19 08:55 Prednisone PO 20 mg BID-WM CLAY Administration Sodium Chloride 10 ml 08/14/19 21:00 08/15/19 08:57 Flush - Normal Saline IVF 10 ml Q12HR CLAY Administration Sodium Chloride 10 ml 08/14/19 12:12 08/14/19 16:38 Flush - Normal Saline IVF 10 ml PRN PRN Administration Saline Flush Theophylline 300 mg 08/15/19 09:00 08/15/19 08:56 Theophylline Er PO Not Given DAILY CLAY Torsemide 20 mg 08/14/19 21:00 08/15/19 08:57 Demadex PO 20 mg BID CLAY Administration Tramadol HCl 50 mg 08/14/19 02:37 08/14/19 03:01 Ultram PO 50 mg Q4H PRN Administration Pain - Exam General Appearance: NAD, awake alert Eye: anicteric sclera ENT: moist mucosa Neck: supple, symmetric, no lymphadenopathy Heart: no murmur, no gallops, no rubs Respiratory: CTAB, no wheezes, no rales, no ronchi, normal chest expansion Gastrointestinal: soft, non-tender, non-distended, no guarding, no rigidity Extremities: 2+ LE edema Extremities - other findings: Left foot > right foot swelling Skin: no lesions, no rashes Neurological: cranial nerve grossly intact, no focal deficits Musculoskeletal: generalized weakness Psychiatric: normal affect, A&O x 3 Hosp A/P (1) Acute gout of foot Code(s): M10.9 - GOUT, UNSPECIFIED Status: Acute (2) Foot pain Code(s): M79.673 - PAIN IN UNSPECIFIED FOOT Status: Acute (3) Ataxia Code(s): R27.0 - ATAXIA, UNSPECIFIED Status: Acute (4) Failure to thrive Code(s): HVC1230 - Status: Acute (5) CHF (congestive heart failure) Code(s): I50.9 - HEART FAILURE, UNSPECIFIED Status: Acute (6) Demand ischemia Code(s): I24.8 - OTHER FORMS OF ACUTE ISCHEMIC HEART DISEASE Status: Acute (7) Asthma Code(s): J45.909 - UNSPECIFIED ASTHMA, UNCOMPLICATED Status: Chronic Qualifiers: Asthma severity: moderate Asthma complication type: with acute exacerbation (8) CAD (coronary artery disease) Code(s): I25.10 - ATHSCL HEART DISEASE OF [place] CORONARY ARTERY W/O ANG PCTRS Status: Chronic Qualifiers: Coronary Disease-Associated Artery/Lesion type: bypass graft [place] vs. transplanted heart: [place] heart Associated angina: without angina Qualified Code(s): I25.810 - Atherosclerosis of coronary artery bypass graft(s) without angina pectoris (9) Chronic anemia Code(s): D64.9 - ANEMIA, UNSPECIFIED Status: Chronic (10) DM2 (diabetes mellitus, type 2) Status: Chronic Qualifiers: Diabetes mellitus long-term insulin use: without terminal makeup operator use Diabetes mellitus complication status: with circulatory complication Diabetes mellitus complication detail: with other circulatory complications Qualified Code(s): E11.59 - Type 2 diabetes mellitus with other circulatory complications (11) HLD (hyperlipidemia) Code(s): E78.5 - HYPERLIPIDEMIA, UNSPECIFIED Status: Chronic Qualifiers: Hyperlipidemia type: unspecified Qualified Code(s): E78.5 - Hyperlipidemia , unspecified (12) HTN (hypertension) Code(s): I10 - ESSENTIAL (PRIMARY) HYPERTENSION Status: Chronic Qualifiers: Hypertension type: essential hypertension Qualified Code(s): I10 - Essential (primary) hypertension (13) Ventricular arrhythmia Code(s): I49.9 - CARDIAC ARRHYTHMIA, UNSPECIFIED Status: Resolved - Plan Plan: medical unit orthopedic surgery consultation, recommendations appreciated oral steroids, received IV steroids initially on admission colchicine times one, dose adjusted for carvedilol will start allopurinol in the next day or two to avoid worsening of acute gout flair. Cardiomyopathy regimen is able blood pressure control blood sugar control GI prophylaxis DVT prophylaxis Disposition: may benefit from inpatient rehab. Have discussed case with workplace rehabilitation officer.
[2019-08-15] MEDS ORDERED: Colchicine 0.6 MG TAB PO SCH (17:45)
[2019-08-15] MEDS: Atorvastatin Calcium 10 MG TAB PO SCH (20:21)
[2019-08-16] MEDS: HumaLOG 300 UNITS/3 ML VIAL SC PRN (05:44)
[2019-08-16] MEDS: Mometasone/Formoterol 120 PUFF INHALER INH SCH (06:41)
[2019-08-16] MEDS: Insulin Glargine 17 UNITS in Pre-Filled Syringe 1 EACH SC SCH (09:11)
[2019-08-16] MEDS: Enoxaparin Sodium 40 MG/0.4 ML SYRINGE SC SCH (09:11)
[2019-08-16] MEDS: Aspirin 81 mg Enteric Coated Tablet PO SCH (09:12)
[2019-08-16] MEDS: Gabapentin 100 MG CAP PO SCH (09:13)
[2019-08-16] MEDS: Potassium Chloride 20 MEQ TAB PO SCH (09:13)
[2019-08-16] MEDS: Doxazosin Mesylate 4 MG TAB PO SCH (09:13)
[2019-08-16] MEDS: Torsemide 20 MG TAB PO SCH (09:14)
[2019-08-16] MEDS: Levothyroxine Sodium 25 MCG TAB PO SCH (09:14)
[2019-08-16] MEDS: Carvedilol 6.25 MG TAB PO SCH (09:15)
[2019-08-16] MEDS: Lisinopril 20 MG TAB PO SCH (09:15)
[2019-08-16] MEDS: predniSONE 20 MG TAB PO SCH (09:15)
[2019-08-16] MEDS: Montelukast Sodium 10 mg Tablet PO SCH (09:16)
[2019-08-16] MEDS: Amlodipine 5 MG TAB PO SCH (09:16)
[2019-08-16] MEDS: Ferrous Sulfate 325 MG TAB PO SCH (09:16)
[2019-08-16] MEDS ORDERED: Allopurinol 300 MG TAB PO SCH (10:30)
[2019-08-16] MEDS ORDERED: Allopurinol 100 MG TAB PO SCH (10:45)
[2019-08-16 11:24] VITALS: BP 139/75; TEMP 98.5
--- NOTE | 2019-08-16 21:24 | DIS ---
DATE OF ADMISSION: 08/15/2019 DATE OF DISCHARGE: 08/16/2019 REASON FOR HOSPITALIZATION: Severe foot pain, ataxia, gout flare. SIGNIFICANT FINDINGS: The patient was found to have acute gout flare, which limited his ability to walk and perform his activities of daily living. PROCEDURES PERFORMED AND TREATMENTS RENDERED: The patient was admitted to the medical unit on 08/14/2019 for bilateral foot pain, swelling, ataxia, and inability to perform his activities of daily living. The patient has a past medical history of gout and he did have acute gout flare. The patient was seen and evaluated by Orthopedic Surgery, please see full consultation notes for details. Orthopedic Surgery agreeing that there was acute gout flare and there is no acute surgical indications and there is no infections ongoing at this time. The patient was placed on appropriate therapy for gout and he had good improvement in his symptoms. The patient was able to ambulate with minimal pain. The patient's feet are less swollen and erythematous than admission and he is doing significantly better than admission. The patient recommended chronic maintenance therapy with allopurinol to prevent gout attacks. The patient was evaluated by Physical Therapy and Occupational Therapy, who recommended him safe for discharge to rehabilitation facility. CONDITION ON DISCHARGE: Stable. SPECIFIC INSTRUCTIONS FOR THE PATIENT/FAMILY: 1. The patient recommended safe for transfer immediately to the rehabilitation facility. 2. The patient recommended to have all medications adjusted as appropriate by admitting physician. 3. The patient recommended to follow up with primary care physician in the next 5 to 7 days. 4. The patient recommended to follow up with all specialists at upcoming appointments. 5. The patient recommended to return to acute care hospital immediately if signs or symptoms return, worsen, or any other new symptoms occur. Greater than 33 minutes spent on discharge process. Job ID: [id number] MTDD
[2019-08-17] MEDS ORDERED: Allopurinol 100 MG TAB PO SCH (09:00)
== END 2019-08-16 13:10 | DRG 554 ==
LOC: ERS 11:45 → SURG B 22:48 → SJJU 08-14 00:44 → OBSVTOIN 08-15 17:09
PROVIDERS: ADMIT Internal Medicine Sleep Medicine; ATTEND Internal Medicine
DX: M10.9 Gout, unspecified (principal); I50.32 Chronic diastolic (congestive) heart failure; I42.9 Cardiomyopathy, unspecified; I24.8 Other forms of acute ischemic heart disease; I25.10 Atherosclerotic heart disease of native coronary artery without angina pectoris; I11.0 Hypertensive heart disease with heart failure; E11.9 Type 2 diabetes mellitus without complications; J44.9 Chronic obstructive pulmonary disease, unspecified; I49.9 Cardiac arrhythmia, unspecified; D64.9 Anemia, unspecified; E03.9 Hypothyroidism, unspecified; I95.9 Hypotension, unspecified; Z95.1 Presence of aortocoronary bypass graft; Z91.012 Allergy to eggs; Z79.899 Other long term (current) drug therapy; Z79.4 Long term (current) use of insulin; Z79.51 Long term (current) use of inhaled steroids; Z79.890 Hormone replacement therapy
CPT/HCPCS: 36415; 36416; 71045; 80048; 80053; 81003; 81015; 83605; 83880; 84484; 84550; 85025; 87040; 87086; 93005; 94640; J1650; J1815; J2920; J7512; J7611

== ENCOUNTER 2020-11-01 11:18 | Inpatient (IN) | payer MEDICARE, OTHER ==
[2020-11-01 11:51] LABS: #Eosinphils 0.5 thou/uL (0.0-0.7); #Lymphocytes 0.9 thou/uL (1.20-3.40); #Monocytes 0.5 thou/uL (0.11-0.59); #Neutrophils 3.3 thou/uL (1.40-6.50); %Basophils 0.9 % (0.0-1.0); %Eosinophils 10.1 % (0.0-10.0); %Lymphocytes 17.3 % (21.0-51.0); %Monocytes 9.2 % (0.0-10.0); %Neutrophils 62.5 % (42.0-75.0); Hemoglobin 10.5 g/dL (14.0-18.0); Mean Corpuscular HGB CONC 32.1 g/dL (32.0-36.0); Mean Corpuscular Hemoglobin 27.9 pg (27.0-31.0); Mean Platelet Volume 10.2 fL (7.4-10.4); Platelet Count 131 thou/uL (130-400); Red Blood Cell (RBC) Count 3.76 mill/uL (4.70-6.10); White Blood Cell (WBC) Count 5.2 thou/uL (4.8-10.8)
[2020-11-01 12:33] LABS: CKMB 1.2 ng/mL (0-6.6)
[2020-11-01 12:55] LABS: ALT (SGPT) 14 U/L (8-55); AST (SGOT) 10 U/L (5-34); Albumin 3.6 g/dL (3.4-4.8); Alkaline Phosphatase 77 U/L (40-110); Anion Gap 15 mmol/L (10-20); BUN (Urea Nitrogen) 20 mg/dL (8.4-25.7); Bilirubin, Total 0.4 mg/dL (0.2-1.2); Calc. Creatinine Clearance 0 mL/min (70-130); Calcium 8.4 mg/dL (7.8-10.44); Carbon Dioxide 30 mmol/L (23-31); Globulin 2.4 g/dL (2.4-3.5); Glucose 256 mg/dL (83-110); Sodium 141 mmol/L (136-145)
[2020-11-01 13:02] LABS: Chloride 100 mmol/L (98-107); Potassium 3.9 mmol/L (3.5-5.1)
[2020-11-01] MEDS ORDERED: Aspirin Chewable 81 MG TAB ONE (14:15)
[2020-11-01] MEDS ORDERED: Azithromycin 500 MG VIAL ONE (14:15)
[2020-11-01] MEDS ORDERED: Furosemide 40 MG/4 ML VIAL ONE (14:16)
[2020-11-01 16:17] LABS: Troponin I 0.029 ng/mL (< 0.028)
[2020-11-01] MEDS ORDERED: Ondansetron ODT 4 MG TAB PO PRN (16:26)
[2020-11-01] MEDS ORDERED: Acetaminophen 650 MG Suppository PR PRN (16:26)
[2020-11-01] MEDS ORDERED: Ondansetron PF 4 MG/2 ML Vial IVP PRN (16:26)
[2020-11-01] MEDS ORDERED: Dextrose 5% in Water 1,000 ML IV PRN (16:44)
[2020-11-01] MEDS ORDERED: Dextrose 50% Abboject 50 ML SYRINGE SLOW IVP PRN (16:44)
[2020-11-01] MEDS ORDERED: Enoxaparin Sodium 40 MG/0.4 ML SYRINGE SC SCH (16:45)
[2020-11-01 18:36] LABS: Troponin I 0.036 ng/mL (< 0.028)
[2020-11-01] MEDS ORDERED: Albuterol Sulfate 2.5 mg/3 ml Neb ONE (19:27)
[2020-11-01] MEDS: Montelukast Sodium 10 mg Tablet PO SCH (20:39)
[2020-11-01] MEDS: Gabapentin 100 MG CAP PO SCH (20:39)
[2020-11-01] MEDS: Atorvastatin Calcium 10 MG TAB PO SCH (20:40)
[2020-11-01] MEDS: Carvedilol 6.25 MG TAB PO SCH (20:40)
[2020-11-01] MEDS ORDERED: Carvedilol 25 MG TAB PO SCH (21:00)
[2020-11-01] MEDS ORDERED: Magnesium 2 GM/50 ML 2 GM in Premix Bag 1 BAG IVPB SCH (22:30)
[2020-11-02 00:36] LABS: SARS-CoV-2 PCR by NAA Not Detected (NotDetected)
[2020-11-02] MEDS: Acetaminophen 325 MG TAB PO PRN ×2 (03:13→20:12)
[2020-11-02] MEDS: Albuterol Sulfate 2.5 mg/3 ml Neb NEB PRN ×2 (03:26→15:01)
[2020-11-02 04:51] LABS: #Basophils 0.1 thou/uL (0.0-0.2); #Eosinphils 0.5 thou/uL (0.0-0.7); #Monocytes 0.5 thou/uL (0.11-0.59); #Neutrophils 2.9 thou/uL (1.40-6.50); %Basophils 1.3 % (0.0-1.0); %Eosinophils 9.6 % (0.0-10.0); %Lymphocytes 20.2 % (21.0-51.0); %Monocytes 10.4 % (0.0-10.0); %Neutrophils 58.6 % (42.0-75.0); Hemoglobin 10.2 g/dL (14.0-18.0); Mean Corpuscular HGB CONC 33.3 g/dL (32.0-36.0); Mean Corpuscular Hemoglobin 28.8 pg (27.0-31.0); Mean Corpuscular Volume 86.6 fL (78.0-98.0); Mean Platelet Volume 10.1 fL (7.4-10.4); Platelet Count 124 thou/uL (130-400); Red Blood Cell (RBC) Count 3.52 mill/uL (4.70-6.10); White Blood Cell (WBC) Count 4.9 thou/uL (4.8-10.8)
[2020-11-02 05:23] LABS: Anion Gap 11 mmol/L (10-20); BUN (Urea Nitrogen) 23 mg/dL (8.4-25.7); Calc. Creatinine Clearance 68 mL/min (70-130); Calcium 8.1 mg/dL (7.8-10.44); Carbon Dioxide 31 mmol/L (23-31); Chloride 102 mmol/L (98-107); Glucose 145 mg/dL (83-110); Magnesium 1.8 mg/dL (1.6-2.6); Potassium 3.4 mmol/L (3.5-5.1); Sodium 141 mmol/L (136-145)
[2020-11-02] MEDS: Furosemide 40 MG/4 ML VIAL SLOW IVP SCH ×2 (05:41→14:59)
[2020-11-02] MEDS: Levothyroxine Sodium 50 MCG TAB PO SCH (05:41)
[2020-11-02] MEDS ORDERED: Magnesium 2 GM/50 ML 2 GM in Premix Bag 1 BAG IVPB SCH (06:30)
[2020-11-02] MEDS: Mometasone 200 MCG/Formoterol 5 MCG 120 PUFF INHALER INH SCH ×2 (07:21→19:01)
[2020-11-02] MEDS: Carvedilol 6.25 MG TAB PO SCH (08:14)
[2020-11-02] MEDS: Potassium Chloride 20 MEQ TAB PO SCH ×2 (08:14→16:19)
[2020-11-02] MEDS: Gabapentin 100 MG CAP PO SCH ×3 (08:14→20:12)
[2020-11-02] MEDS: Spironolactone 25 MG TAB PO SCH (08:14)
[2020-11-02] MEDS: Allopurinol 100 MG TAB PO SCH (08:14)
[2020-11-02] MEDS: Enoxaparin Sodium 40 MG/0.4 ML SYRINGE SC SCH (08:15)
[2020-11-02] MEDS: Aspirin 81 mg Enteric Coated Tablet PO SCH (08:15)
[2020-11-02] MEDS ORDERED: Amlodipine 10 MG TAB PO SCH (09:00)
[2020-11-02] MEDS ORDERED: Carvedilol 6.25 MG TAB PO SCH (17:00)
[2020-11-02] MEDS: Insulin Regular 300 UNITS/3 ML VIAL SC PRN (17:04)
[2020-11-02] MEDS: GUAIFENESIN SF SOLN 200 MG/10 ML UDCUP PO PRN (17:11)
[2020-11-02] MEDS ORDERED: Electrolyte Replacement Protocol FS SCH (18:45)
[2020-11-02] MEDS: Montelukast Sodium 10 mg Tablet PO SCH (20:13)
[2020-11-02] MEDS: guaiFENesin ER 600 MG TAB PO SCH (20:13)
[2020-11-02] MEDS: Atorvastatin Calcium 10 MG TAB PO SCH (20:15)
[2020-11-02] MEDS ORDERED: Lisinopril 10 MG TAB PO SCH (21:00)
[2020-11-03] MEDS: Acetaminophen 325 MG TAB PO PRN ×3 (04:06→20:37)
[2020-11-03] MEDS: Albuterol Sulfate 2.5 mg/3 ml Neb NEB PRN ×2 (04:41→14:24)
[2020-11-03] MEDS: Levothyroxine Sodium 50 MCG TAB PO SCH (05:09)
[2020-11-03] MEDS: Furosemide 40 MG/4 ML VIAL SLOW IVP SCH (05:11)
[2020-11-03 05:46] LABS: Anion Gap 11 mmol/L (10-20); BUN (Urea Nitrogen) 18 mg/dL (8.4-25.7); Calc. Creatinine Clearance 49 mL/min (70-130); Calcium 8.9 mg/dL (7.8-10.44); Carbon Dioxide 25 mmol/L (23-31); Chloride 108 mmol/L (98-107); Glucose 100 mg/dL (83-110); Magnesium 1.9 mg/dL (1.6-2.6); Potassium 3.4 mmol/L (3.5-5.1); Sodium 141 mmol/L (136-145)
[2020-11-03] MEDS ORDERED: Magnesium 2 GM/50 ML 2 GM in Premix Bag 1 BAG IVPB SCH (06:00)
[2020-11-03] MEDS ORDERED: Potassium Chloride 20 MEQ TAB PO SCH (06:00)
[2020-11-03] MEDS: Mometasone 200 MCG/Formoterol 5 MCG 120 PUFF INHALER INH SCH ×2 (06:56→19:23)
[2020-11-03] MEDS ORDERED: Metolazone 5 MG TAB PO SCH (08:30)
[2020-11-03] MEDS: guaiFENesin ER 600 MG TAB PO SCH ×2 (08:39→20:36)
[2020-11-03] MEDS: Carvedilol 6.25 MG TAB PO SCH ×2 (08:39→16:21)
[2020-11-03] MEDS: Allopurinol 100 MG TAB PO SCH (08:39)
[2020-11-03] MEDS: Potassium Chloride 20 MEQ TAB PO SCH ×2 (08:40→16:22)
[2020-11-03] MEDS: Metolazone 5 MG TAB PO SCH (08:40)
[2020-11-03] MEDS: Aspirin 81 mg Enteric Coated Tablet PO SCH (08:40)
[2020-11-03] MEDS: Enoxaparin Sodium 40 MG/0.4 ML SYRINGE SC SCH (08:41)
[2020-11-03] MEDS: Gabapentin 100 MG CAP PO SCH ×3 (08:41→20:36)
[2020-11-03] MEDS: Spironolactone 25 MG TAB PO SCH (08:41)
[2020-11-03] MEDS ORDERED: Amlodipine 5 MG TAB PO SCH (09:00)
[2020-11-03] MEDS: Insulin Regular 300 UNITS/3 ML VIAL SC PRN (11:36)
[2020-11-03 17:11] LABS: Anion Gap 14 mmol/L (10-20); BUN (Urea Nitrogen) 25 mg/dL (8.4-25.7); Calc. Creatinine Clearance 68 mL/min (70-130); Calcium 8.2 mg/dL (7.8-10.44); Carbon Dioxide 26 mmol/L (23-31); Chloride 102 mmol/L (98-107); Glucose 144 mg/dL (83-110); Potassium 4.9 mmol/L (3.5-5.1); Sodium 137 mmol/L (136-145)
[2020-11-03 17:20] LABS: Mean Corpuscular HGB CONC 31.7 g/dL (32.0-36.0); Mean Corpuscular Hemoglobin 27.9 pg (27.0-31.0); Mean Platelet Volume 10.4 fL (7.4-10.4); Platelet Count 124 thou/uL (130-400); RBC Distribution Width 14.1 % (11.5-14.5); Red Blood Cell (RBC) Count 3.94 mill/uL (4.70-6.10); White Blood Cell (WBC) Count 6.5 thou/uL (4.8-10.8)
[2020-11-03 18:05] LABS: Band 10 % (5-11); Eosinophils 5 % (0-10); Lymphocytes 18 % (21-51); MDiff Complete? YES; Monocytes 10 % (0-10); Myelocyte 2 % (0-0); Neutrophil 55 % (42-75); Platelet Morphology Comment Appears Decreased
[2020-11-03] MEDS: Atorvastatin Calcium 10 MG TAB PO SCH (20:36)
[2020-11-03] MEDS: Montelukast Sodium 10 mg Tablet PO SCH (20:38)
[2020-11-04] MEDS: Albuterol Sulfate 2.5 mg/3 ml Neb NEB PRN (01:05)
[2020-11-04 05:14] LABS: Anion Gap 13 mmol/L (10-20); BUN (Urea Nitrogen) 27 mg/dL (8.4-25.7); Calc. Creatinine Clearance 71 mL/min (70-130); Calcium 8.2 mg/dL (7.8-10.44); Carbon Dioxide 29 mmol/L (23-31); Chloride 100 mmol/L (98-107); Glucose 161 mg/dL (83-110); Magnesium 2.5 mg/dL (1.6-2.6); Potassium 4.6 mmol/L (3.5-5.1); Sodium 137 mmol/L (136-145)
[2020-11-04] MEDS: Levothyroxine Sodium 50 MCG TAB PO SCH (05:20)
[2020-11-04] MEDS: Furosemide 40 MG/4 ML VIAL SLOW IVP SCH ×2 (07:05→13:34)
[2020-11-04] MEDS: Mometasone 200 MCG/Formoterol 5 MCG 120 PUFF INHALER INH SCH ×2 (07:58→19:26)
[2020-11-04] MEDS: Aspirin 81 mg Enteric Coated Tablet PO SCH (08:42)
[2020-11-04] MEDS: Enoxaparin Sodium 40 MG/0.4 ML SYRINGE SC SCH (08:42)
[2020-11-04] MEDS ORDERED: ALPRAZolam 0.25 MG TAB PO PRN (08:42)
[2020-11-04] MEDS: Carvedilol 6.25 MG TAB PO SCH ×2 (08:44→16:06)
[2020-11-04] MEDS: Gabapentin 100 MG CAP PO SCH ×3 (08:45→22:02)
[2020-11-04] MEDS: Spironolactone 25 MG TAB PO SCH (08:45)
[2020-11-04] MEDS: Metolazone 5 MG TAB PO SCH (08:45)
[2020-11-04] MEDS: Allopurinol 100 MG TAB PO SCH (08:45)
[2020-11-04] MEDS: guaiFENesin ER 600 MG TAB PO SCH ×2 (08:46→22:02)
[2020-11-04] MEDS: traMADol HCl 50 MG TAB PO PRN (13:35)
[2020-11-04] MEDS: GUAIFENESIN SF SOLN 200 MG/10 ML UDCUP PO PRN ×2 (13:35→22:04)
[2020-11-04] MEDS: Atorvastatin Calcium 10 MG TAB PO SCH (22:02)
[2020-11-04] MEDS: Montelukast Sodium 10 mg Tablet PO SCH (22:04)
[2020-11-04] MEDS: Insulin Regular 300 UNITS/3 ML VIAL SC PRN (22:08)
[2020-11-05] MEDS: traMADol HCl 50 MG TAB PO PRN (02:32)
[2020-11-05 04:43] LABS: #Eosinphils 0.8 thou/uL (0.0-0.7); #Lymphocytes 1.2 thou/uL (1.20-3.40); #Monocytes 0.8 thou/uL (0.11-0.59); #Neutrophils 5.6 thou/uL (1.40-6.50); %Basophils 0.4 % (0.0-1.0); %Eosinophils 9.9 % (0.0-10.0); %Lymphocytes 13.8 % (21.0-51.0); %Monocytes 9.7 % (0.0-10.0); %Neutrophils 66.2 % (42.0-75.0); Hemoglobin 10.4 g/dL (14.0-18.0); Mean Corpuscular HGB CONC 31.6 g/dL (32.0-36.0); Mean Corpuscular Hemoglobin 27.5 pg (27.0-31.0); Mean Corpuscular Volume 87.2 fL (78.0-98.0); Mean Platelet Volume 9.8 fL (7.4-10.4); Platelet Count 152 thou/uL (130-400); RBC Distribution Width 14.3 % (11.5-14.5); Red Blood Cell (RBC) Count 3.76 mill/uL (4.70-6.10); White Blood Cell (WBC) Count 8.4 thou/uL (4.8-10.8)
[2020-11-05 05:03] LABS: Anion Gap 11 mmol/L (10-20); BUN (Urea Nitrogen) 25 mg/dL (8.4-25.7); Calc. Creatinine Clearance 76 mL/min (70-130); Calcium 8.3 mg/dL (7.8-10.44); Carbon Dioxide 30 mmol/L (23-31); Chloride 100 mmol/L (98-107); Glucose 151 mg/dL (83-110); Magnesium 2.4 mg/dL (1.6-2.6); Potassium 4.8 mmol/L (3.5-5.1); Sodium 136 mmol/L (136-145)
[2020-11-05] MEDS: GUAIFENESIN SF SOLN 200 MG/10 ML UDCUP PO PRN ×3 (06:15→21:02)
[2020-11-05] MEDS: Furosemide 40 MG/4 ML VIAL SLOW IVP SCH (06:15)
[2020-11-05] MEDS: Levothyroxine Sodium 50 MCG TAB PO SCH (06:15)
[2020-11-05] MEDS: Mometasone 200 MCG/Formoterol 5 MCG 120 PUFF INHALER INH SCH ×2 (07:14→19:10)
[2020-11-05] MEDS: Enoxaparin Sodium 40 MG/0.4 ML SYRINGE SC SCH (09:25)
[2020-11-05] MEDS: Spironolactone 25 MG TAB PO SCH (09:25)
[2020-11-05] MEDS: Gabapentin 100 MG CAP PO SCH ×3 (09:25→21:02)
[2020-11-05] MEDS: guaiFENesin ER 600 MG TAB PO SCH ×2 (09:26→21:02)
[2020-11-05] MEDS: Metolazone 5 MG TAB PO SCH (09:26)
[2020-11-05] MEDS: Allopurinol 100 MG TAB PO SCH (09:26)
[2020-11-05] MEDS: Carvedilol 6.25 MG TAB PO SCH ×2 (09:26→16:27)
[2020-11-05] MEDS: Aspirin 81 mg Enteric Coated Tablet PO SCH (09:26)
[2020-11-05] MEDS ORDERED: Furosemide 40 MG/4 ML VIAL SLOW IVP SCH (18:15)
[2020-11-05] MEDS: Montelukast Sodium 10 mg Tablet PO SCH (21:02)
[2020-11-05] MEDS: Atorvastatin Calcium 10 MG TAB PO SCH (21:02)
[2020-11-06] MEDS: traMADol HCl 50 MG TAB PO PRN ×2 (03:47→13:20)
[2020-11-06] MEDS: GUAIFENESIN SF SOLN 200 MG/10 ML UDCUP PO PRN ×2 (05:25→20:20)
[2020-11-06] MEDS: Levothyroxine Sodium 50 MCG TAB PO SCH (05:25)
[2020-11-06 05:41] LABS: Anion Gap 11 mmol/L (10-20); BUN (Urea Nitrogen) 23 mg/dL (8.4-25.7); Calc. Creatinine Clearance 77 mL/min (70-130); Calcium 8.4 mg/dL (7.8-10.44); Carbon Dioxide 31 mmol/L (23-31); Chloride 99 mmol/L (98-107); Glucose 145 mg/dL (83-110); Magnesium 2.2 mg/dL (1.6-2.6); Potassium 4.8 mmol/L (3.5-5.1); Sodium 136 mmol/L (136-145)
[2020-11-06] MEDS ORDERED: Furosemide 40 MG/4 ML VIAL SLOW IVP SCH ×2 (06:00→15:30)
[2020-11-06] MEDS: Mometasone 200 MCG/Formoterol 5 MCG 120 PUFF INHALER INH SCH ×2 (07:30→18:37)
[2020-11-06] MEDS: Aspirin 81 mg Enteric Coated Tablet PO SCH (09:28)
[2020-11-06] MEDS: Metolazone 5 MG TAB PO SCH (09:28)
[2020-11-06] MEDS: Allopurinol 100 MG TAB PO SCH (09:28)
[2020-11-06] MEDS: Spironolactone 25 MG TAB PO SCH (09:29)
[2020-11-06] MEDS: Carvedilol 6.25 MG TAB PO SCH ×2 (09:29→16:37)
[2020-11-06] MEDS: Gabapentin 100 MG CAP PO SCH ×3 (09:29→20:21)
[2020-11-06] MEDS: guaiFENesin ER 600 MG TAB PO SCH ×2 (09:29→20:21)
[2020-11-06] MEDS: Enoxaparin Sodium 40 MG/0.4 ML SYRINGE SC SCH (09:30)
[2020-11-06] MEDS: Albuterol Sulfate 2.5 mg/3 ml Neb NEB PRN (10:52)
[2020-11-06] MEDS: Insulin Regular 300 UNITS/3 ML VIAL SC PRN (18:24)
[2020-11-06] MEDS: Montelukast Sodium 10 mg Tablet PO SCH (20:21)
[2020-11-06] MEDS: Atorvastatin Calcium 10 MG TAB PO SCH (20:21)
[2020-11-07] MEDS: Albuterol Sulfate 2.5 mg/3 ml Neb NEB PRN ×2 (02:21→22:23)
[2020-11-07] MEDS: Furosemide 40 MG/4 ML VIAL SLOW IVP SCH ×2 (05:25→14:17)
[2020-11-07] MEDS: Levothyroxine Sodium 50 MCG TAB PO SCH (05:26)
[2020-11-07] MEDS: GUAIFENESIN SF SOLN 200 MG/10 ML UDCUP PO PRN ×3 (05:26→21:06)
[2020-11-07] MEDS: Mometasone 200 MCG/Formoterol 5 MCG 120 PUFF INHALER INH SCH ×2 (07:06→18:24)
[2020-11-07] MEDS: Enoxaparin Sodium 40 MG/0.4 ML SYRINGE SC SCH (08:58)
[2020-11-07] MEDS: Metolazone 5 MG TAB PO SCH (08:58)
[2020-11-07] MEDS: guaiFENesin ER 600 MG TAB PO SCH ×2 (08:59→21:07)
[2020-11-07] MEDS: Allopurinol 100 MG TAB PO SCH (08:59)
[2020-11-07] MEDS: Aspirin 81 mg Enteric Coated Tablet PO SCH (08:59)
[2020-11-07] MEDS: Spironolactone 25 MG TAB PO SCH (08:59)
[2020-11-07] MEDS: Carvedilol 6.25 MG TAB PO SCH ×2 (08:59→16:01)
[2020-11-07] MEDS: Gabapentin 100 MG CAP PO SCH ×3 (09:00→21:07)
[2020-11-07] MEDS: Insulin Regular 300 UNITS/3 ML VIAL SC PRN ×2 (11:27→17:56)
[2020-11-07] MEDS: traMADol HCl 50 MG TAB PO PRN ×2 (17:55→21:36)
[2020-11-07] MEDS: Montelukast Sodium 10 mg Tablet PO SCH (21:07)
[2020-11-07] MEDS: Atorvastatin Calcium 10 MG TAB PO SCH (21:07)
[2020-11-08] MEDS: traMADol HCl 50 MG TAB PO PRN ×2 (03:14→21:13)
[2020-11-08] MEDS: GUAIFENESIN SF SOLN 200 MG/10 ML UDCUP PO PRN ×3 (03:14→21:13)
[2020-11-08 05:20] LABS: Anion Gap 12 mmol/L (10-20); BUN (Urea Nitrogen) 18 mg/dL (8.4-25.7); Calc. Creatinine Clearance 86 mL/min (70-130); Calcium 8.8 mg/dL (7.8-10.44); Carbon Dioxide 36 mmol/L (23-31); Chloride 92 mmol/L (98-107); Glucose 120 mg/dL (83-110); Potassium 3.6 mmol/L (3.5-5.1); Sodium 136 mmol/L (136-145)
[2020-11-08] MEDS: Levothyroxine Sodium 50 MCG TAB PO SCH (05:36)
[2020-11-08] MEDS: Mometasone 200 MCG/Formoterol 5 MCG 120 PUFF INHALER INH SCH ×2 (07:27→18:43)
[2020-11-08] MEDS: Enoxaparin Sodium 40 MG/0.4 ML SYRINGE SC SCH (09:22)
[2020-11-08] MEDS: Metolazone 5 MG TAB PO SCH (09:23)
[2020-11-08] MEDS: Furosemide 40 MG/4 ML VIAL SLOW IVP SCH ×2 (09:23→14:12)
[2020-11-08] MEDS: Allopurinol 100 MG TAB PO SCH (09:24)
[2020-11-08] MEDS: Aspirin 81 mg Enteric Coated Tablet PO SCH (09:24)
[2020-11-08] MEDS: Carvedilol 6.25 MG TAB PO SCH ×2 (09:24→16:02)
[2020-11-08] MEDS: Spironolactone 25 MG TAB PO SCH (09:25)
[2020-11-08] MEDS: Gabapentin 100 MG CAP PO SCH ×3 (09:25→21:12)
[2020-11-08] MEDS: guaiFENesin ER 600 MG TAB PO SCH ×2 (09:25→21:12)
[2020-11-08 15:55] LABS: #Basophils 0.1 thou/uL (0.0-0.2); #Eosinphils 1.1 thou/uL (0.0-0.7); #Lymphocytes 1.2 thou/uL (1.20-3.40); #Monocytes 0.8 thou/uL (0.11-0.59); #Neutrophils 5.1 thou/uL (1.40-6.50); %Basophils 0.7 % (0.0-1.0); %Eosinophils 13.6 % (0.0-10.0); %Lymphocytes 14.4 % (21.0-51.0); %Monocytes 9.2 % (0.0-10.0); %Neutrophils 62.1 % (42.0-75.0); Hemoglobin 11.5 g/dL (14.0-18.0); Mean Corpuscular HGB CONC 32.1 g/dL (32.0-36.0); Mean Corpuscular Hemoglobin 27.6 pg (27.0-31.0); Mean Platelet Volume 9.8 fL (7.4-10.4); Platelet Count 169 thou/uL (130-400); RBC Distribution Width 14.2 % (11.5-14.5); Red Blood Cell (RBC) Count 4.19 mill/uL (4.70-6.10); White Blood Cell (WBC) Count 8.2 thou/uL (4.8-10.8)
[2020-11-08] MEDS: Insulin Regular 300 UNITS/3 ML VIAL SC PRN (16:31)
[2020-11-08] MEDS: Atorvastatin Calcium 10 MG TAB PO SCH (21:12)
[2020-11-08] MEDS: Montelukast Sodium 10 mg Tablet PO SCH (21:12)
[2020-11-09] MEDS: traMADol HCl 50 MG TAB PO PRN (04:11)
[2020-11-09 04:52] LABS: Anion Gap 15 mmol/L (10-20); BUN (Urea Nitrogen) 21 mg/dL (8.4-25.7); Calc. Creatinine Clearance 72 mL/min (70-130); Calcium 8.5 mg/dL (7.8-10.44); Carbon Dioxide 33 mmol/L (23-31); Chloride 93 mmol/L (98-107); Glucose 115 mg/dL (83-110); Potassium 3.6 mmol/L (3.5-5.1); Sodium 137 mmol/L (136-145)
[2020-11-09] MEDS: Furosemide 40 MG/4 ML VIAL SLOW IVP SCH ×2 (05:05→15:49)
[2020-11-09] MEDS: Levothyroxine Sodium 50 MCG TAB PO SCH (05:05)
[2020-11-09] MEDS: GUAIFENESIN SF SOLN 200 MG/10 ML UDCUP PO PRN ×3 (06:28→21:15)
[2020-11-09] MEDS: Mometasone 200 MCG/Formoterol 5 MCG 120 PUFF INHALER INH SCH ×2 (07:11→19:45)
[2020-11-09] MEDS: Gabapentin 100 MG CAP PO SCH ×3 (09:04→21:09)
[2020-11-09] MEDS: Aspirin 81 mg Enteric Coated Tablet PO SCH (09:04)
[2020-11-09] MEDS: Metolazone 5 MG TAB PO SCH (09:04)
[2020-11-09] MEDS: Allopurinol 100 MG TAB PO SCH (09:04)
[2020-11-09] MEDS: Spironolactone 25 MG TAB PO SCH (09:05)
[2020-11-09] MEDS: Carvedilol 6.25 MG TAB PO SCH ×2 (09:05→17:47)
[2020-11-09] MEDS: guaiFENesin ER 600 MG TAB PO SCH ×2 (09:05→21:10)
[2020-11-09] MEDS: Enoxaparin Sodium 40 MG/0.4 ML SYRINGE SC SCH (09:05)
[2020-11-09] MEDS: Montelukast Sodium 10 mg Tablet PO SCH (21:11)
[2020-11-09] MEDS: Atorvastatin Calcium 10 MG TAB PO SCH (21:11)
[2020-11-10] MEDS: Albuterol Sulfate 2.5 mg/3 ml Neb NEB PRN (00:10)
[2020-11-10 04:49] LABS: #Eosinphils 1.2 thou/uL (0.0-0.7); #Lymphocytes 1.4 thou/uL (1.20-3.40); #Monocytes 0.8 thou/uL (0.11-0.59); %Basophils 0.4 % (0.0-1.0); %Eosinophils 14.1 % (0.0-10.0); %Lymphocytes 16.6 % (21.0-51.0); %Monocytes 9.8 % (0.0-10.0); %Neutrophils 59.1 % (42.0-75.0); Hemoglobin 11.5 g/dL (14.0-18.0); Mean Corpuscular HGB CONC 33.1 g/dL (32.0-36.0); Mean Corpuscular Hemoglobin 28.2 pg (27.0-31.0); Mean Corpuscular Volume 85.3 fL (78.0-98.0); Mean Platelet Volume 9.7 fL (7.4-10.4); Platelet Count 161 thou/uL (130-400); RBC Distribution Width 14.3 % (11.5-14.5); Red Blood Cell (RBC) Count 4.08 mill/uL (4.70-6.10); White Blood Cell (WBC) Count 8.5 thou/uL (4.8-10.8)
[2020-11-10 05:13] LABS: Anion Gap 13 mmol/L (10-20); BUN (Urea Nitrogen) 22 mg/dL (8.4-25.7); Calc. Creatinine Clearance 74 mL/min (70-130); Calcium 8.8 mg/dL (7.8-10.44); Carbon Dioxide 37 mmol/L (23-31); Chloride 90 mmol/L (98-107); Glucose 130 mg/dL (83-110); Magnesium 1.6 mg/dL (1.6-2.6); Potassium 3.5 mmol/L (3.5-5.1); Sodium 136 mmol/L (136-145)
[2020-11-10] MEDS: Levothyroxine Sodium 50 MCG TAB PO SCH (06:02)
[2020-11-10] MEDS: Furosemide 40 MG/4 ML VIAL SLOW IVP SCH ×2 (06:02→15:27)
[2020-11-10] MEDS: Mometasone 200 MCG/Formoterol 5 MCG 120 PUFF INHALER INH SCH ×2 (07:48→19:06)
[2020-11-10] MEDS: Gabapentin 100 MG CAP PO SCH ×3 (08:58→21:06)
[2020-11-10] MEDS: Carvedilol 6.25 MG TAB PO SCH ×2 (08:59→17:40)
[2020-11-10] MEDS: Allopurinol 100 MG TAB PO SCH (09:00)
[2020-11-10] MEDS: Spironolactone 25 MG TAB PO SCH (09:00)
[2020-11-10] MEDS: Enoxaparin Sodium 40 MG/0.4 ML SYRINGE SC SCH (09:01)
[2020-11-10] MEDS: Metolazone 5 MG TAB PO SCH (09:01)
[2020-11-10] MEDS: Aspirin 81 mg Enteric Coated Tablet PO SCH (09:01)
[2020-11-10] MEDS: guaiFENesin ER 600 MG TAB PO SCH ×2 (09:01→21:07)
[2020-11-10] MEDS ORDERED: Magnesium 2 GM/50 ML 2 GM in Premix Bag 1 BAG IVPB SCH (11:45)
[2020-11-10] MEDS ORDERED: Potassium Chloride 20 MEQ TAB PO SCH (12:00)
[2020-11-10] MEDS: Insulin Regular 300 UNITS/3 ML VIAL SC PRN ×3 (12:10→21:08)
[2020-11-10 12:28] VITALS: BMI 30.4
[2020-11-10] MEDS: Atorvastatin Calcium 10 MG TAB PO SCH (21:06)
[2020-11-10] MEDS: Montelukast Sodium 10 mg Tablet PO SCH (21:06)
[2020-11-10] MEDS: GUAIFENESIN SF SOLN 200 MG/10 ML UDCUP PO PRN (21:13)
[2020-11-11 04:42] LABS: #Eosinphils 1.2 thou/uL (0.0-0.7); #Lymphocytes 1.3 thou/uL (1.20-3.40); #Monocytes 0.8 thou/uL (0.11-0.59); #Neutrophils 5.4 thou/uL (1.40-6.50); %Basophils 0.5 % (0.0-1.0); %Eosinophils 13.7 % (0.0-10.0); %Lymphocytes 15.2 % (21.0-51.0); %Monocytes 9.1 % (0.0-10.0); %Neutrophils 61.5 % (42.0-75.0); Hemoglobin 11.6 g/dL (14.0-18.0); Mean Corpuscular HGB CONC 32.9 g/dL (32.0-36.0); Mean Corpuscular Hemoglobin 28.5 pg (27.0-31.0); Mean Corpuscular Volume 86.8 fL (78.0-98.0); Platelet Count 170 thou/uL (130-400); RBC Distribution Width 14.2 % (11.5-14.5); Red Blood Cell (RBC) Count 4.05 mill/uL (4.70-6.10); White Blood Cell (WBC) Count 8.8 thou/uL (4.8-10.8)
[2020-11-11 05:06] LABS: Anion Gap 11 mmol/L (10-20); BUN (Urea Nitrogen) 21 mg/dL (8.4-25.7); Calc. Creatinine Clearance 73 mL/min (70-130); Calcium 8.6 mg/dL (7.8-10.44); Carbon Dioxide 37 mmol/L (23-31); Chloride 93 mmol/L (98-107); Glucose 134 mg/dL (83-110); Potassium 4.1 mmol/L (3.5-5.1); Sodium 137 mmol/L (136-145)
[2020-11-11] MEDS: Furosemide 40 MG/4 ML VIAL SLOW IVP SCH ×2 (05:29→16:38)
[2020-11-11] MEDS: Carvedilol 6.25 MG TAB PO SCH (05:29)
[2020-11-11] MEDS: Levothyroxine Sodium 50 MCG TAB PO SCH (05:29)
[2020-11-11] MEDS: Mometasone 200 MCG/Formoterol 5 MCG 120 PUFF INHALER INH SCH ×2 (07:15→18:52)
[2020-11-11] MEDS ORDERED: Iopamidol 370 76% 50 ML VIAL FS ONE (09:53)
[2020-11-11] MEDS ORDERED: PHENYLEPHRINE-NS 100 MCG/ML 10 ML SYRINGE ONE ×2 (11:11→12:32)
[2020-11-11] MEDS ORDERED: Propofol 500 MG/50 ML VIAL ONE (11:11)
[2020-11-11] MEDS ORDERED: Gentamicin 80 MG/2 ML VIAL ONE (12:00)
[2020-11-11] MEDS ORDERED: CEFAZOLIN 1 GM VIAL ONE (12:00)
[2020-11-11] MEDS: Enoxaparin Sodium 40 MG/0.4 ML SYRINGE SC SCH (12:25)
[2020-11-11] MEDS: Gabapentin 100 MG CAP PO SCH ×3 (12:25→21:44)
[2020-11-11] MEDS: guaiFENesin ER 600 MG TAB PO SCH ×2 (12:25→21:45)
[2020-11-11] MEDS ORDERED: Lidocaine 1% (PF) 30 ML VIAL ONE (12:33)
[2020-11-11] MEDS ORDERED: PROPOFOL 20 ML ONE (13:00)
[2020-11-11] MEDS: Metolazone 5 MG TAB PO SCH (15:45)
[2020-11-11] MEDS: Spironolactone 25 MG TAB PO SCH (15:47)
[2020-11-11] MEDS: Aspirin 81 mg Enteric Coated Tablet PO SCH (15:47)
[2020-11-11] MEDS: Allopurinol 100 MG TAB PO SCH (15:47)
[2020-11-11] MEDS: GUAIFENESIN SF SOLN 200 MG/10 ML UDCUP PO PRN (15:55)
[2020-11-11] MEDS ORDERED: HYDROcodone/Acetaminophen 5/325 mg Tablet PO PRN ×2 (16:30)
[2020-11-11] MEDS ORDERED: Acetaminophen/Codeine 30-300mg Tablet PO PRN ×2 (16:30)
[2020-11-11] MEDS: Insulin Regular 300 UNITS/3 ML VIAL SC PRN ×2 (16:51→22:31)
[2020-11-11] MEDS: Albuterol Sulfate 2.5 mg/3 ml Neb NEB PRN (18:48)
[2020-11-11] MEDS: Cephalexin 250 MG CAP PO SCH (21:45)
[2020-11-11] MEDS: Montelukast Sodium 10 mg Tablet PO SCH (21:45)
[2020-11-11] MEDS: Atorvastatin Calcium 10 MG TAB PO SCH (21:45)
[2020-11-12 04:33] LABS: #Lymphocytes 1.4 thou/uL (1.20-3.40); #Monocytes 1.1 thou/uL (0.11-0.59); #Neutrophils 8.7 thou/uL (1.40-6.50); %Basophils 0.1 % (0.0-1.0); %Eosinophils 8.5 % (0.0-10.0); %Lymphocytes 11.4 % (21.0-51.0); %Monocytes 8.9 % (0.0-10.0); %Neutrophils 71.1 % (42.0-75.0); Hemoglobin 12.1 g/dL (14.0-18.0); Mean Corpuscular HGB CONC 32.5 g/dL (32.0-36.0); Mean Corpuscular Hemoglobin 28.1 pg (27.0-31.0); Mean Corpuscular Volume 86.5 fL (78.0-98.0); Mean Platelet Volume 9.4 fL (7.4-10.4); Platelet Count 177 thou/uL (130-400); RBC Distribution Width 14.5 % (11.5-14.5); Red Blood Cell (RBC) Count 4.32 mill/uL (4.70-6.10); White Blood Cell (WBC) Count 12.3 thou/uL (4.8-10.8)
[2020-11-12 04:57] LABS: Anion Gap 13 mmol/L (10-20); BUN (Urea Nitrogen) 17 mg/dL (8.4-25.7); Calc. Creatinine Clearance 79 mL/min (70-130); Calcium 8.8 mg/dL (7.8-10.44); Carbon Dioxide 36 mmol/L (23-31); Chloride 93 mmol/L (98-107); Glucose 120 mg/dL (83-110); Magnesium 1.9 mg/dL (1.6-2.6); Potassium 3.9 mmol/L (3.5-5.1); Sodium 138 mmol/L (136-145)
[2020-11-12] MEDS: Levothyroxine Sodium 50 MCG TAB PO SCH (05:50)
[2020-11-12] MEDS ORDERED: Magnesium 2 GM/50 ML 2 GM in Premix Bag 1 BAG IVPB SCH (06:45)
[2020-11-12] MEDS: Furosemide 40 MG/4 ML VIAL SLOW IVP SCH (06:57)
[2020-11-12] MEDS ORDERED: Carvedilol 6.25 MG TAB PO SCH (08:00)
[2020-11-12] MEDS: Spironolactone 25 MG TAB PO SCH (08:48)
[2020-11-12] MEDS: Metolazone 5 MG TAB PO SCH (08:49)
[2020-11-12] MEDS: Allopurinol 100 MG TAB PO SCH (08:50)
[2020-11-12] MEDS: Aspirin 81 mg Enteric Coated Tablet PO SCH (08:50)
[2020-11-12] MEDS: Cephalexin 250 MG CAP PO SCH (08:50)
[2020-11-12] MEDS: Gabapentin 100 MG CAP PO SCH (08:50)
[2020-11-12] MEDS: guaiFENesin ER 600 MG TAB PO SCH (08:51)
[2020-11-12] MEDS: Mometasone 200 MCG/Formoterol 5 MCG 120 PUFF INHALER INH SCH (09:42)
[2020-11-12 12:14] VITALS: BP 138/71; TEMP 97.9
[2020-11-12] MEDS: Insulin Regular 300 UNITS/3 ML VIAL SC PRN (13:29)
== END 2020-11-12 14:27 | DRG 226 ==
LOC: ERS 11:18 → 2NO 13:36
PROVIDERS: ADMIT Internal Medicine; ATTEND Family Medicine
PROC: 0JH608Z Insertion of Defibrillator Generator into Chest Subcutaneous Tissue and Fascia, Open Approach (ICD-10-PCS; principal; 2020-11-11)
PROC: 02HK3KZ Insertion of Defibrillator Lead into Right Ventricle, Percutaneous Approach (ICD-10-PCS; 2020-11-11)
PROC: 02H63KZ Insertion of Defibrillator Lead into Right Atrium, Percutaneous Approach (ICD-10-PCS; 2020-11-11)
PROC: 5A2204Z Restoration of Cardiac Rhythm, Single (ICD-10-PCS; 2020-11-11)
PROC: B24BZZ4 Ultrasonography of Heart with Aorta, Transesophageal (ICD-10-PCS; 2020-11-11)
DX: I11.0 Hypertensive heart disease with heart failure (principal); J96.01 Acute respiratory failure with hypoxia; I48.19 Other persistent atrial fibrillation; I47.2 Ventricular tachycardia; I50.43 Acute on chronic combined systolic (congestive) and diastolic (congestive) heart failure; Z20.822 Contact with and (suspected) exposure to COVID-19; I25.10 Atherosclerotic heart disease of native coronary artery without angina pectoris; E78.5 Hyperlipidemia, unspecified; E03.9 Hypothyroidism, unspecified; R00.1 Bradycardia, unspecified; I25.5 Ischemic cardiomyopathy; M10.9 Gout, unspecified; H91.90 Unspecified hearing loss, unspecified ear; E11.36 Type 2 diabetes mellitus with diabetic cataract; H26.9 Unspecified cataract; E77.8 Other disorders of glycoprotein metabolism; I27.20 Pulmonary hypertension, unspecified; I45.10 Unspecified right bundle-branch block; J44.9 Chronic obstructive pulmonary disease, unspecified; E66.9 Obesity, unspecified; I08.1 Rheumatic disorders of both mitral and tricuspid valves; D53.9 Nutritional anemia, unspecified; E87.6 Hypokalemia; E83.42 Hypomagnesemia; Z95.1 Presence of aortocoronary bypass graft; Z91.012 Allergy to eggs; Z79.899 Other long term (current) drug therapy; Z79.82 Long term (current) use of aspirin; Z79.51 Long term (current) use of inhaled steroids; Z79.890 Hormone replacement therapy; Z79.84 Long term (current) use of oral hypoglycemic drugs; Z83.3 Family history of diabetes mellitus; Z80.1 Family history of malignant neoplasm of trachea, bronchus and lung; Z68.29 Body mass index [BMI] 29.0-29.9, adult
CPT/HCPCS: 33225; 33249; 36415; 36416; 71045; 71046; 80048; 80053; 82553; 83735; 83880; 84443; 84484; 85025; 92960; 93005; 93010; 93306; 93312; 93798; 96365; 96375; C1777; C1882; C1898; C1900; J0456; J0690; J1580; J1650; J1815; J1940; J2001; J2704; J3475; J7611; J7620; Q9967; U0003; U0005

== ENCOUNTER 2021-10-04 08:40 | Day surgery (SDC) | payer MEDICARE ==
[2021-10-02 11:19] VITALS: BMI 36.8
[2021-10-04 09:57] LABS: Anion Gap 14 mmol/L (10-20); BUN (Urea Nitrogen) 32 mg/dL (8.4-25.7); Calc. Creatinine Clearance 58 mL/min (70-130); Calcium 9.2 mg/dL (7.8-10.44); Carbon Dioxide 32 mmol/L (23-31); Chloride 100 mmol/L (98-107); Glucose 166 mg/dL (83-110); Potassium 4.4 mmol/L (3.5-5.1); Sodium 142 mmol/L (136-145)
[2021-10-04] MEDS ORDERED: Levofloxacin 500 mg/D5W 100 ml Premix Bag ONE ×2 (10:20→12:47)
[2021-10-04] MEDS ORDERED: Midazolam HCl 2 mg/2 ml Vial ONE (12:27)
[2021-10-04] MEDS ORDERED: SUGAMMADEX SODIUM 200 MG/2 ML VIAL ONE (12:41)
[2021-10-04] MEDS ORDERED: Famotidine/PF 20 mg/2ml Vial ONE (12:42)
[2021-10-04] MEDS ORDERED: Lidocaine 1% PF 5 ML VIAL ONE (12:55)
[2021-10-04] MEDS ORDERED: ePHEDrine 50 MG/ML VIAL ONE (12:55)
[2021-10-04] MEDS ORDERED: PROPOFOL 200 MG/20 ML VIAL ONE (12:55)
[2021-10-04] MEDS ORDERED: Metoclopramide HCl 10 MG/2 ML VIAL ONE (12:55)
[2021-10-04] MEDS ORDERED: Ondansetron PF 4 MG/2 ML Vial ONE (12:55)
[2021-10-04] MEDS ORDERED: PHENYLEPHRINE-NS 100 MCG/ML 10 ML SYRINGE ONE (12:55)
[2021-10-04] MEDS ORDERED: Phenazopyridine HCl 100 MG TAB ONE (14:33)
== END 2021-10-04 15:39 ==
LOC: SDC 08:40
PROVIDERS: ATTEND Urology
PROC: 0TJB8ZZ Inspection of Bladder, Via Natural or Artificial Opening Endoscopic (ICD-10-PCS; principal; 2021-10-04)
DX: N35.011 Post-traumatic bulbous urethral stricture (principal); N36.8 Other specified disorders of urethra; E11.9 Type 2 diabetes mellitus without complications; M10.9 Gout, unspecified; I11.0 Hypertensive heart disease with heart failure; I50.32 Chronic diastolic (congestive) heart failure; I48.0 Paroxysmal atrial fibrillation; I25.10 Atherosclerotic heart disease of native coronary artery without angina pectoris; Z79.4 Long term (current) use of insulin; Z79.82 Long term (current) use of aspirin; Z79.890 Hormone replacement therapy; Z79.899 Other long term (current) drug therapy; Z91.012 Allergy to eggs; Z95.1 Presence of aortocoronary bypass graft; Z95.810 Presence of automatic (implantable) cardiac defibrillator; J45.40 Moderate persistent asthma, uncomplicated; E78.5 Hyperlipidemia, unspecified
CPT/HCPCS: 36416; 80048; J1956; J2250; J2405; J2704; J2765; J3490; S0028

== ENCOUNTER 2021-10-25 10:18 | Outpatient (CLI) | payer MEDICARE | END 2021-10-25 10:19 | disposition home or self-care (01) | LOC: BICRAD 10:18 | PROVIDERS: ATTEND Family Medicine | DX: R06.02 Shortness of breath (principal); I50.9 Heart failure, unspecified | CPT/HCPCS: 71046 ==

== ENCOUNTER 2022-04-24 16:52 | Emergency (ER) | payer MEDICARE ==
[2022-04-24 17:40] LABS: Actual Bicarbonate (HCO3v) 28 mEq/L (22-28); Analyzer IN Cardio ER; Base Excess 2.5 mEq/L (-2.0 to +3.0); Calcium, Ionized (venous) 1.08 mmol/L (1.16-1.32); Chloride (VBG) 94 mmol/L (98-106); Hemoglobin (Hb) 13.6 g/dL (12.6-17.4); Potassium (VBG) 5.14 mmol/L (3.70-5.30); Sodium 131.5 mmol/L (133-146); pH (venous) 7.38 (7.32-7.43)
[2022-04-24 17:45] LABS: #Eosinphils 0.5 thou/uL (0.0-0.7); #Lymphocytes 0.9 thou/uL (1.20-3.40); #Monocytes 0.6 thou/uL (0.11-0.59); #Neutrophils 7.5 thou/uL (1.40-6.50); %Basophils 0.5 % (0.0-1.0); %Eosinophils 4.9 % (0.0-10.0); %Lymphocytes 9.4 % (21.0-51.0); %Monocytes 5.8 % (0.0-10.0); %Neutrophils 79.4 % (42.0-75.0); Hemoglobin 12.3 g/dL (14.0-18.0); Mean Corpuscular HGB CONC 32.1 g/dL (32.0-36.0); Mean Corpuscular Hemoglobin 28.5 pg (27.0-31.0); Mean Corpuscular Volume 88.7 fl (78.0-98.0); Mean Platelet Volume 9.6 fL (7.4-10.4); Platelet Count 138 10x3/uL (130-400); RBC Distribution Width 13.9 % (11.5-14.5); Red Blood Cell (RBC) Count 4.31 mill/uL (4.70-6.10); White Blood Cell (WBC) Count 9.5 10x3/uL (4.8-10.8)
[2022-04-24 18:03] LABS: Phosphorus 4.2 mg/dL (2.3-4.7)
[2022-04-24 18:05] LABS: ALT (SGPT) 11 U/L (8-55); AST (SGOT) 6 U/L (5-34); Albumin 3.7 g/dL (3.4-4.8); Alkaline Phosphatase 95 U/L (40-110); Anion Gap 15 mmol/L (10-20); BUN (Urea Nitrogen) 55 mg/dL (8.4-25.7); Bilirubin, Total 0.4 mg/dL (0.2-1.2); Calc. Creatinine Clearance 0 mL/min (70-130); Carbon Dioxide 27 mmol/L (23-31); Chloride 95 mmol/L (98-107); Estimated GFR 35; Globulin 2.6 g/dL (2.4-3.5); Magnesium 2.1 mg/dL (1.6-2.6); Potassium 5.2 mmol/L (3.5-5.1); Protein, Total 6.3 g/dL (5.8-8.1); Sodium 132 mmol/L (136-145)
[2022-04-24 18:16] LABS: Glucose 470 mg/dL (83-110)
[2022-04-24 18:23] LABS: Bilirubin Negative (Negative); Blood, Urine Negative (Negative); Clarity Clear (Clear); Glucose, Urine (Dipstick) Greater than 1000 mg/dL (Negative); Ketone, Urine Negative (Negative); Leukocyte Negative Leu/uL (Negative); Nitrite Negative (Negative); Protein, Urine (Dipstick) Negative (Neg-Trace); Urobilinogen Normal mg/dL (Less than 2)
[2022-04-24] MEDS ORDERED: Insulin Regular 300 UNITS/3 ML VIAL ONE (18:24)
[2022-04-24 18:29] LABS: SARS-CoV-2 NAA Rapid Test Not Detected (NotDetected)
== END 2022-04-24 20:20 ==
LOC: ERS 16:52
DX: E11.65 Type 2 diabetes mellitus with hyperglycemia (principal); E11.22 Type 2 diabetes mellitus with diabetic chronic kidney disease; I13.0 Hypertensive heart and chronic kidney disease with heart failure and stage 1 through stage 4 chronic kidney disease, or unspecified chronic kidney disease; I50.9 Heart failure, unspecified; N18.9 Chronic kidney disease, unspecified; D63.1 Anemia in chronic kidney disease; J06.9 Acute upper respiratory infection, unspecified; I48.91 Unspecified atrial fibrillation; E87.5 Hyperkalemia; E78.5 Hyperlipidemia, unspecified; I25.10 Atherosclerotic heart disease of native coronary artery without angina pectoris; Z20.822 Contact with and (suspected) exposure to COVID-19; Z79.4 Long term (current) use of insulin
CPT/HCPCS: 0240U; 71045; 80053; 81003; 82010; 82805; 82962; 83735; 84100; 85025; 93005; 94760; 36415; 36416; 96360; 96372; J1815

== ENCOUNTER 2022-12-23 03:20 | Inpatient (IN) | payer MEDICARE ==
[2022-12-23] MEDS ORDERED: Magnesium 2 GM/50 ML BAG (IN WATER) ONE (03:38)
[2022-12-23] MEDS ORDERED: Dexamethasone 10 MG/ML VIAL ONE (03:38)
[2022-12-23] MEDS ORDERED: Ipratropium/Albuterol 3 ML NEB ONE (04:01)
[2022-12-23 04:11] LABS: #Basophils 0.1 thou/uL (0.0-0.2); #Eosinphils 0.3 thou/uL (0.0-0.7); #Monocytes 0.9 thou/uL (0.11-0.59); #Neutrophils 9.7 thou/uL (1.40-6.50); %Basophils 0.5 % (0.0-1.0); %Eosinophils 2.5 % (0.0-10.0); %Lymphocytes 6.7 % (21.0-51.0); %Monocytes 7.3 % (0.0-10.0); %Neutrophils 82.4 % (42.0-75.0); Hemoglobin 11.7 g/dL (14.0-18.0); Mean Corpuscular HGB CONC 32.3 g/dL (32.0-36.0); Mean Corpuscular Hemoglobin 27.8 pg (27.0-31.0); Mean Platelet Volume 12.2 fL (7.4-10.4); Platelet Count 116 10x3/uL (130-400); RBC Distribution Width 14.9 % (11.5-14.5); Red Blood Cell (RBC) Count 4.21 mill/uL (4.70-6.10); White Blood Cell (WBC) Count 11.8 10x3/uL (4.8-10.8)
[2022-12-23 04:34] LABS: Actual Bicarbonate (HCO3a) 22.7 mEq/L (22-28); Analyzer IN Cardio ER; Base Excess (BEa) -1.1 mEq/L (-2.0 to +3.0); CO2 Tension 34.9 mmHg (35.0-45.0); Calcium, Ionized (arterial) 1.17 mmol/L (1.12-1.30); Carboxyhemoglobin (COHb) 0.3 gm% (0.0-3.0); Hematocrit-ABG 35 % (42.0-52.0); O2 Tension (PaO2), arterial 141.4 mmHg (> 70.0); Potassium - ABG Lab 4.42 mmol/L (3.70-5.30); pH, Arterial 7.431 (7.35-7.45)
[2022-12-23 04:38] LABS: ALV-art Gradient 100.175 mmHg (0-20); Puncture Site RBA
[2022-12-23 04:45] LABS: Bacteria/HPF None Seen HPF (None Seen); Bilirubin Negative (Negative); Blood, Urine Negative (Negative); CAUTI Indications for Culture Pelvic or flank pain; Clarity Clear (Clear); Glucose, Urine (Dipstick) Greater than 1000 mg/dL (Negative); Ketone, Urine Trace mg/dL (Negative); Leukocyte 25 Leu/uL (Negative); Nitrite Negative (Negative); Protein, Urine (Dipstick) 50 mg/dL (Neg-Trace); RBC/HPF 0-3 HPF (0-3); Specific Gravity, Urine 1.025 (1.002-1.036); Squamous Epithelial 0-3 HPF (0-3); Urobilinogen Normal mg/dL (Less than 2); pH, Urine 5.5 (5.0-9.0)
[2022-12-23 04:48] LABS: Urine Culture Reflex No No
[2022-12-23 04:49] LABS: SARS-CoV-2 NAA Rapid Test Not Detected (NotDetected)
[2022-12-23 04:59] LABS: CKMB 0.9 ng/mL (0-6.6)
[2022-12-23 05:06] LABS: CellaVision Operator ID lab.abc; Platelet Adequacy Comment Platelets Decreased; RBC Morphology Within Normal Limits
[2022-12-23 05:11] LABS: ALT (SGPT) 12 U/L (8-55); AST (SGOT) 14 U/L (5-34); Albumin 3.7 g/dL (3.4-4.8); Alkaline Phosphatase 72 U/L (40-110); Anion Gap 18 mmol/L (10-20); BUN (Urea Nitrogen) 24 mg/dL (8.4-25.7); Bilirubin, Total 0.6 mg/dL (0.2-1.2); CK (CPK) 27 U/L (30-200); Calc. Creatinine Clearance 0 mL/min (70-130); Calcium 9.4 mg/dL (7.8-10.44); Carbon Dioxide 20 mmol/L (23-31); Chloride 103 mmol/L (98-107); Estimated GFR 51; Globulin 2.9 g/dL (2.4-3.5); Glucose 235 mg/dL (83-110); Lipase 23 U/L (8-78); Potassium 4.9 mmol/L (3.5-5.1); Protein, Total 6.6 g/dL (5.8-8.1); Sodium 136 mmol/L (136-145)
[2022-12-23] MEDS ORDERED: Amiodarone 150 MG/3 ML VIAL ONE (05:32)
[2022-12-23] MEDS ORDERED: Amiodarone 450 MG, Admixture Fee 1 EACH in Dextrose 5% in Water 250 ML IVPB SCH (05:45)
[2022-12-23] MEDS ORDERED: Benzonatate 100 MG CAP ONE (06:42)
[2022-12-23] MEDS ORDERED: LevoFLOXacin 750 mg/D5W 150 ml Premix Bag ONE (08:02)
[2022-12-23] MEDS ORDERED: Iopamidol-370 76% 500 ML MDV (1 ML CHARGE) ONE (08:59)
[2022-12-23 10:49] LABS: Troponin I 0.073 ng/mL (< 0.028)
[2022-12-23] MEDS ORDERED: Docusate 100 MG CAP PO PRN (12:00)
[2022-12-23] MEDS ORDERED: Pantoprazole 40 MG VIAL IVP SCH (12:00)
[2022-12-23] MEDS ORDERED: Electrolyte Replacement Protocol 1 EACH FS SCH (12:00)
[2022-12-23] MEDS ORDERED: Glucagon 1 MG/ML KIT IM PRN (12:01)
[2022-12-23] MEDS ORDERED: Dextrose 5% in Water 1,000 ML IV PRN (12:01)
[2022-12-23] MEDS ORDERED: Dextrose 50% Abboject 50 ML SYRINGE SLOW IVP PRN (12:01)
[2022-12-23] MEDS ORDERED: Acetaminophen 650 MG Suppository PR PRN (12:01)
[2022-12-23] MEDS ORDERED: Ondansetron PF 4 MG/2 ML Vial IVP PRN (12:01)
[2022-12-23] MEDS ORDERED: Ondansetron ODT 4 MG TAB PO PRN (12:01)
[2022-12-23] MEDS ORDERED: Benzonatate 100 MG CAP PO PRN (12:06)
[2022-12-23] MEDS ORDERED: Nystatin Powder 15 GM BOT TOP PRN (12:06)
[2022-12-23] MEDS ORDERED: Furosemide 40 MG/4 ML VIAL SLOW IVP SCH (12:15)
[2022-12-23 13:10] LABS: Magnesium 2.4 mg/dL (1.6-2.6)
[2022-12-23 13:53] LABS: Troponin I 0.061 ng/mL (< 0.028)
[2022-12-23] MEDS: Ipratropium/Albuterol 3 ML NEB NEB SCH ×2 (14:07→18:25)
[2022-12-23] MEDS: methylPREDNISolone Sod Succ 40 MG VIAL IVP SCH ×2 (14:58→21:19)
[2022-12-23] MEDS: Gabapentin 100 MG CAP PO SCH ×2 (14:59→21:18)
[2022-12-23 15:15] VITALS: BMI 33.3
[2022-12-23 18:24] LABS: CKMB 1.6 ng/mL (0-6.6)
[2022-12-23] MEDS: HumaLOG 300 UNITS/3 ML VIAL SC PRN ×2 (19:10→22:54)
[2022-12-23] MEDS: Tamsulosin HCl 0.4 MG CAP PO SCH (21:17)
[2022-12-23] MEDS: Spironolactone 25 MG TAB PO SCH (21:17)
[2022-12-23] MEDS: guaiFENesin ER 600 MG TAB PO SCH (21:18)
[2022-12-23] MEDS: Atorvastatin Calcium 10 MG TAB PO SCH (21:18)
[2022-12-23] MEDS: Montelukast Sodium 10 mg Tablet PO SCH (21:18)
[2022-12-24] MEDS: Ipratropium/Albuterol 3 ML NEB NEB SCH ×4 (00:01→18:19)
[2022-12-24 04:34] LABS: #Monocytes 0.2 thou/uL (0.11-0.59); %Basophils 0.1 % (0.0-1.0); %Monocytes 2.3 % (0.0-10.0); %Neutrophils 91.3 % (42.0-75.0); Hemoglobin 11.1 g/dL (14.0-18.0); Mean Corpuscular HGB CONC 31.5 g/dL (32.0-36.0); Mean Corpuscular Hemoglobin 27.9 pg (27.0-31.0); Mean Corpuscular Volume 88.4 fl (78.0-98.0); Mean Platelet Volume 12.2 fL (7.4-10.4); RBC Distribution Width 14.6 % (11.5-14.5); Red Blood Cell (RBC) Count 3.98 mill/uL (4.70-6.10); White Blood Cell (WBC) Count 7.7 10x3/uL (4.8-10.8)
[2022-12-24 05:00] LABS: Anion Gap 16 mmol/L (10-20); BUN (Urea Nitrogen) 34 mg/dL (8.4-25.7); Calc. Creatinine Clearance 48 mL/min (70-130); Calcium 8.6 mg/dL (7.8-10.44); Carbon Dioxide 21 mmol/L (23-31); Chloride 103 mmol/L (98-107); Estimated GFR 45; Glucose 372 mg/dL (83-110); Magnesium 2.6 mg/dL (1.6-2.6); Potassium 4.8 mmol/L (3.5-5.1); Sodium 135 mmol/L (136-145)
[2022-12-24] MEDS: methylPREDNISolone Sod Succ 40 MG VIAL IVP SCH (05:43)
[2022-12-24] MEDS: HumaLOG 300 UNITS/3 ML VIAL SC PRN ×4 (05:43→21:14)
[2022-12-24] MEDS: Levothyroxine Sodium 50 MCG TAB PO SCH (05:43)
[2022-12-24 05:45] LABS: Platelet Count 101 10x3/uL (130-400)
[2022-12-24] MEDS ORDERED: Non-Formulary Item 1 EACH (Levothyroxine Sodium [Levothyroxine Sodium] 50 MCG Capsule) PO SCH (09:00)
[2022-12-24] MEDS ORDERED: Non-Formulary Item 1 EACH (Bumetanide [Bumetanide] 2 MG Tablet) PO SCH (09:00)
[2022-12-24] MEDS ORDERED: LevoFLOXacin 750 mg/D5W 750 MG in Premix Bag 1 BAG IVPB SCH (09:00)
[2022-12-24] MEDS: guaiFENesin ER 600 MG TAB PO SCH ×2 (09:38→21:13)
[2022-12-24] MEDS: Bumetanide 1 MG TAB PO SCH (09:38)
[2022-12-24] MEDS: Gabapentin 100 MG CAP PO SCH ×3 (09:39→21:13)
[2022-12-24] MEDS: cefTRIAXone\\ROCEPHIN 2 GM in Sodium Chloride 0.9% 100 ML IVPB SCH (12:04)
[2022-12-24] MEDS: Atorvastatin Calcium 10 MG TAB PO SCH (21:13)
[2022-12-24] MEDS: Spironolactone 25 MG TAB PO SCH (21:14)
[2022-12-24] MEDS: Montelukast Sodium 10 mg Tablet PO SCH (21:14)
[2022-12-24] MEDS: Tamsulosin HCl 0.4 MG CAP PO SCH (21:14)
[2022-12-25] MEDS: Ipratropium/Albuterol 3 ML NEB NEB SCH ×4 (00:16→19:11)
[2022-12-25] MEDS: HumaLOG 300 UNITS/3 ML VIAL SC PRN ×4 (06:17→21:43)
[2022-12-25] MEDS: Levothyroxine Sodium 50 MCG TAB PO SCH (06:18)
[2022-12-25] MEDS: Bumetanide 1 MG TAB PO SCH (10:09)
[2022-12-25] MEDS: guaiFENesin ER 600 MG TAB PO SCH ×2 (10:09→21:41)
[2022-12-25] MEDS: Gabapentin 100 MG CAP PO SCH ×3 (10:10→21:41)
[2022-12-25] MEDS: predniSONE 20 MG TAB PO SCH (10:10)
[2022-12-25] MEDS: cefTRIAXone\\ROCEPHIN 2 GM in Sodium Chloride 0.9% 100 ML IVPB SCH (12:20)
[2022-12-25] MEDS ORDERED: Insulin Glargine 30 UNITS/0.3 ML VIAL SC SCH (14:00)
[2022-12-25] MEDS ORDERED: traZODone HCl 50 MG TAB PO SCH (21:00)
[2022-12-25] MEDS: Atorvastatin Calcium 10 MG TAB PO SCH (21:41)
[2022-12-25] MEDS: Tamsulosin HCl 0.4 MG CAP PO SCH (21:42)
[2022-12-25] MEDS: Spironolactone 25 MG TAB PO SCH (21:42)
[2022-12-25] MEDS: Montelukast Sodium 10 mg Tablet PO SCH (21:42)
[2022-12-26] MEDS: Ipratropium/Albuterol 3 ML NEB NEB SCH ×4 (00:09→19:43)
[2022-12-26 04:54] LABS: #Monocytes 0.6 thou/uL (0.11-0.59); #Neutrophils 7.9 thou/uL (1.40-6.50); %Basophils 0.2 % (0.0-1.0); %Eosinophils 0.2 % (0.0-10.0); %Lymphocytes 5.8 % (21.0-51.0); %Monocytes 6.9 % (0.0-10.0); %Neutrophils 85.7 % (42.0-75.0); Hemoglobin 11.6 g/dL (14.0-18.0); Mean Corpuscular HGB CONC 30.9 g/dL (32.0-36.0); Mean Corpuscular Hemoglobin 27.5 pg (27.0-31.0); Mean Corpuscular Volume 88.9 fl (78.0-98.0); Mean Platelet Volume 12.1 fL (7.4-10.4); Platelet Count 120 10x3/uL (130-400); RBC Distribution Width 14.8 % (11.5-14.5); Red Blood Cell (RBC) Count 4.22 mill/uL (4.70-6.10); White Blood Cell (WBC) Count 9.2 10x3/uL (4.8-10.8)
[2022-12-26 05:20] LABS: Anion Gap 16 mmol/L (10-20); BUN (Urea Nitrogen) 45 mg/dL (8.4-25.7); Calc. Creatinine Clearance 44 mL/min (70-130); Calcium 8.3 mg/dL (7.8-10.44); Carbon Dioxide 20 mmol/L (23-31); Chloride 106 mmol/L (98-107); Estimated GFR 42; Glucose 231 mg/dL (83-110); Potassium 4.9 mmol/L (3.5-5.1); Sodium 137 mmol/L (136-145)
[2022-12-26] MEDS: HumaLOG 300 UNITS/3 ML VIAL SC PRN ×4 (06:13→21:58)
[2022-12-26] MEDS: Levothyroxine Sodium 50 MCG TAB PO SCH (06:13)
[2022-12-26] MEDS: Gabapentin 100 MG CAP PO SCH ×3 (09:38→21:51)
[2022-12-26] MEDS: guaiFENesin ER 600 MG TAB PO SCH ×2 (09:39→21:50)
[2022-12-26] MEDS: Bumetanide 1 MG TAB PO SCH (09:39)
[2022-12-26] MEDS: Insulin Glargine 30 UNITS/0.3 ML VIAL SC SCH (09:39)
[2022-12-26] MEDS: predniSONE 20 MG TAB PO SCH (09:39)
[2022-12-26] MEDS ORDERED: Guaifenesin DM 100-10/5 ML UDCUP PO PRN ×2 (11:30→11:48)
[2022-12-26] MEDS: cefTRIAXone\\ROCEPHIN 2 GM in Sodium Chloride 0.9% 100 ML IVPB SCH (11:55)
[2022-12-26] MEDS ORDERED: Azithromycin 250 MG TAB PO SCH (12:45)
[2022-12-26] MEDS ORDERED: Furosemide 40 MG/4 ML VIAL SLOW IVP SCH (12:45)
[2022-12-26] MEDS: CEFAZOLIN 2 GM in Sodium Chloride 0.9% 100 ML IVPB SCH ×2 (14:18→22:00)
[2022-12-26] MEDS: Atorvastatin Calcium 10 MG TAB PO SCH (21:50)
[2022-12-26] MEDS: Tamsulosin HCl 0.4 MG CAP PO SCH (21:51)
[2022-12-26] MEDS: Montelukast Sodium 10 mg Tablet PO SCH (21:51)
[2022-12-26] MEDS: Spironolactone 25 MG TAB PO SCH (21:51)
[2022-12-26] MEDS: Melatonin 3 MG TAB PO PRN (21:55)
[2022-12-27] MEDS: Ipratropium/Albuterol 3 ML NEB NEB SCH ×4 (00:21→19:02)
[2022-12-27] MEDS: CEFAZOLIN 2 GM in Sodium Chloride 0.9% 100 ML IVPB SCH ×2 (06:07→14:57)
[2022-12-27] MEDS: Levothyroxine Sodium 50 MCG TAB PO SCH (06:08)
[2022-12-27] MEDS: HumaLOG 300 UNITS/3 ML VIAL SC PRN ×3 (06:15→21:37)
[2022-12-27] MEDS: Bumetanide 1 MG TAB PO SCH (09:14)
[2022-12-27] MEDS: guaiFENesin ER 600 MG TAB PO SCH ×2 (09:15→21:36)
[2022-12-27] MEDS: predniSONE 20 MG TAB PO SCH (09:15)
[2022-12-27] MEDS: Gabapentin 100 MG CAP PO SCH ×3 (09:15→21:36)
[2022-12-27] MEDS: Insulin Glargine 30 UNITS/0.3 ML VIAL SC SCH (09:16)
[2022-12-27] MEDS ORDERED: HumaLOG 300 UNITS/3 ML VIAL SC PRN (10:41)
[2022-12-27] MEDS: Azithromycin 250 MG TAB PO SCH (14:57)
[2022-12-27] MEDS: Spironolactone 25 MG TAB PO SCH (21:36)
[2022-12-27] MEDS: Atorvastatin Calcium 10 MG TAB PO SCH (21:36)
[2022-12-27] MEDS: Montelukast Sodium 10 mg Tablet PO SCH (21:36)
[2022-12-27] MEDS: Melatonin 3 MG TAB PO PRN (21:37)
[2022-12-27] MEDS: Acetaminophen 325 MG TAB PO PRN (21:37)
[2022-12-27] MEDS: Tamsulosin HCl 0.4 MG CAP PO SCH (21:37)
[2022-12-28] MEDS: Ipratropium/Albuterol 3 ML NEB NEB SCH ×5 (00:15→23:59)
[2022-12-28] MEDS: CEFAZOLIN 2 GM in Sodium Chloride 0.9% 100 ML IVPB SCH ×4 (01:14→21:31)
[2022-12-28] MEDS: Levothyroxine Sodium 50 MCG TAB PO SCH (06:22)
[2022-12-28] MEDS: Bumetanide 1 MG TAB PO SCH (08:43)
[2022-12-28] MEDS: Gabapentin 100 MG CAP PO SCH ×3 (08:43→19:58)
[2022-12-28] MEDS: predniSONE 20 MG TAB PO SCH (08:44)
[2022-12-28] MEDS: guaiFENesin ER 600 MG TAB PO SCH ×2 (08:44→19:56)
[2022-12-28] MEDS: Insulin Glargine 30 UNITS/0.3 ML VIAL SC SCH (08:45)
[2022-12-28] MEDS: Azithromycin 250 MG TAB PO SCH (14:32)
[2022-12-28] MEDS: HumaLOG 300 UNITS/3 ML VIAL SC PRN ×2 (17:19→20:05)
[2022-12-28] MEDS: Tamsulosin HCl 0.4 MG CAP PO SCH (19:56)
[2022-12-28] MEDS: Spironolactone 25 MG TAB PO SCH (19:57)
[2022-12-28] MEDS: Acetaminophen 325 MG TAB PO PRN (19:58)
[2022-12-28] MEDS: Montelukast Sodium 10 mg Tablet PO SCH (19:58)
[2022-12-28] MEDS: Atorvastatin Calcium 10 MG TAB PO SCH (19:58)
[2022-12-28] MEDS: Melatonin 3 MG TAB PO PRN (20:02)
[2022-12-29 05:03] LABS: #Eosinphils 0.1 thou/uL (0.0-0.7); #Monocytes 0.8 thou/uL (0.11-0.59); #Neutrophils 8.9 thou/uL (1.40-6.50); %Basophils 0.3 % (0.0-1.0); %Eosinophils 0.6 % (0.0-10.0); %Lymphocytes 6.7 % (21.0-51.0); %Monocytes 7.5 % (0.0-10.0); %Neutrophils 82.2 % (42.0-75.0); Hemoglobin 11.7 g/dL (14.0-18.0); Mean Corpuscular HGB CONC 31.5 g/dL (32.0-36.0); Mean Corpuscular Hemoglobin 27.8 pg (27.0-31.0); Mean Corpuscular Volume 88.4 fl (78.0-98.0); Mean Platelet Volume 11.7 fL (7.4-10.4); RBC Distribution Width 14.8 % (11.5-14.5); Red Blood Cell (RBC) Count 4.21 mill/uL (4.70-6.10); White Blood Cell (WBC) Count 10.8 10x3/uL (4.8-10.8)
[2022-12-29 05:09] LABS: Platelet Count 115 10x3/uL (130-400)
[2022-12-29 05:30] LABS: Anion Gap 15 mmol/L (10-20); BUN (Urea Nitrogen) 35 mg/dL (8.4-25.7); Calc. Creatinine Clearance 51 mL/min (70-130); Calcium 7.8 mg/dL (7.8-10.44); Carbon Dioxide 23 mmol/L (23-31); Chloride 104 mmol/L (98-107); Estimated GFR 51; Glucose 227 mg/dL (83-110); Potassium 4.5 mmol/L (3.5-5.1); Sodium 137 mmol/L (136-145)
[2022-12-29] MEDS: CEFAZOLIN 2 GM in Sodium Chloride 0.9% 100 ML IVPB SCH ×3 (05:41→21:08)
[2022-12-29] MEDS: Levothyroxine Sodium 50 MCG TAB PO SCH (05:42)
[2022-12-29] MEDS: Ipratropium/Albuterol 3 ML NEB NEB SCH ×3 (08:29→17:52)
[2022-12-29] MEDS: Bumetanide 1 MG TAB PO SCH (10:03)
[2022-12-29] MEDS: guaiFENesin ER 600 MG TAB PO SCH ×2 (10:05→21:08)
[2022-12-29] MEDS: Gabapentin 100 MG CAP PO SCH ×3 (10:05→21:08)
[2022-12-29] MEDS: Insulin Glargine 30 UNITS/0.3 ML VIAL SC SCH (10:06)
[2022-12-29] MEDS: Azithromycin 250 MG TAB PO SCH (13:44)
[2022-12-29] MEDS: HumaLOG 300 UNITS/3 ML VIAL SC PRN ×2 (18:28→21:14)
[2022-12-29] MEDS: Atorvastatin Calcium 10 MG TAB PO SCH (21:07)
[2022-12-29] MEDS: Montelukast Sodium 10 mg Tablet PO SCH (21:07)
[2022-12-29] MEDS: Spironolactone 25 MG TAB PO SCH (21:07)
[2022-12-29] MEDS: Tamsulosin HCl 0.4 MG CAP PO SCH (21:08)
[2022-12-29] MEDS: Melatonin 3 MG TAB PO PRN (21:08)
[2022-12-29] MEDS: HYDROcodone/Acetaminophen 5/325 mg Tablet PO PRN (21:08)
[2022-12-30] MEDS: Ipratropium/Albuterol 3 ML NEB NEB SCH ×4 (02:18→18:30)
[2022-12-30 05:41] LABS: Anion Gap 10 mmol/L (10-20); BUN (Urea Nitrogen) 27 mg/dL (8.4-25.7); Calc. Creatinine Clearance 56 mL/min (70-130); Calcium 7.6 mg/dL (7.8-10.44); Carbon Dioxide 26 mmol/L (23-31); Chloride 105 mmol/L (98-107); Estimated GFR 56; Glucose 125 mg/dL (83-110); Potassium 3.8 mmol/L (3.5-5.1); Sodium 137 mmol/L (136-145)
[2022-12-30] MEDS: Levothyroxine Sodium 50 MCG TAB PO SCH (05:55)
[2022-12-30] MEDS: CEFAZOLIN 2 GM in Sodium Chloride 0.9% 100 ML IVPB SCH ×3 (05:55→21:35)
[2022-12-30] MEDS: HYDROcodone/Acetaminophen 5/325 mg Tablet PO PRN ×2 (06:00→13:24)
[2022-12-30] MEDS: Bumetanide 1 MG TAB PO SCH (09:19)
[2022-12-30] MEDS: guaiFENesin ER 600 MG TAB PO SCH ×2 (09:19→21:41)
[2022-12-30] MEDS: Acetaminophen 325 MG TAB PO PRN (09:20)
[2022-12-30] MEDS: Gabapentin 100 MG CAP PO SCH ×3 (09:20→21:34)
[2022-12-30] MEDS: Insulin Glargine 30 UNITS/0.3 ML VIAL SC SCH (09:22)
[2022-12-30] MEDS ORDERED: predniSONE 20 MG TAB PO SCH (12:30)
[2022-12-30] MEDS: HumaLOG 300 UNITS/3 ML VIAL SC PRN ×3 (13:28→21:37)
[2022-12-30] MEDS: Atorvastatin Calcium 10 MG TAB PO SCH (21:35)
[2022-12-30] MEDS: Tamsulosin HCl 0.4 MG CAP PO SCH (21:35)
[2022-12-30] MEDS: Spironolactone 25 MG TAB PO SCH (21:35)
[2022-12-30] MEDS: Melatonin 3 MG TAB PO PRN (21:35)
[2022-12-30] MEDS: Montelukast Sodium 10 mg Tablet PO SCH (21:35)
[2022-12-31] MEDS: Ipratropium/Albuterol 3 ML NEB NEB SCH ×4 (00:21→18:21)
[2022-12-31] MEDS: HYDROcodone/Acetaminophen 5/325 mg Tablet PO PRN ×2 (03:34→22:33)
[2022-12-31 04:56] LABS: #Monocytes 0.4 thou/uL (0.11-0.59); %Basophils 0.2 % (0.0-1.0); %Eosinophils 0.1 % (0.0-10.0); %Lymphocytes 4.1 % (21.0-51.0); %Monocytes 4.8 % (0.0-10.0); %Neutrophils 86.1 % (42.0-75.0); Hemoglobin 10.7 g/dL (14.0-18.0); Mean Corpuscular HGB CONC 30.7 g/dL (32.0-36.0); Mean Corpuscular Hemoglobin 27.6 pg (27.0-31.0); Mean Corpuscular Volume 89.9 fl (78.0-98.0); Mean Platelet Volume 12.3 fL (7.4-10.4); Platelet Count 98 10x3/uL (130-400); RBC Distribution Width 14.9 % (11.5-14.5); Red Blood Cell (RBC) Count 3.87 mill/uL (4.70-6.10); White Blood Cell (WBC) Count 9.2 10x3/uL (4.8-10.8)
[2022-12-31 05:00] LABS: Manual Diff?? YES
[2022-12-31] MEDS: CEFAZOLIN 2 GM in Sodium Chloride 0.9% 100 ML IVPB SCH ×3 (05:09→21:06)
[2022-12-31] MEDS: Levothyroxine Sodium 50 MCG TAB PO SCH (05:09)
[2022-12-31 05:15] LABS: Anion Gap 15 mmol/L (10-20); BUN (Urea Nitrogen) 23 mg/dL (8.4-25.7); Calc. Creatinine Clearance 53 mL/min (70-130); Calcium 7.5 mg/dL (7.8-10.44); Carbon Dioxide 22 mmol/L (23-31); Chloride 103 mmol/L (98-107); Estimated GFR 58; Glucose 230 mg/dL (83-110); Potassium 4.6 mmol/L (3.5-5.1); Sodium 135 mmol/L (136-145)
[2022-12-31] MEDS: HumaLOG 300 UNITS/3 ML VIAL SC PRN ×4 (05:25→20:52)
[2022-12-31 06:12] LABS: Band 3 % (5-11); Burr Cells SLIGHT = 2-5 cells HPF (0-1); Hypochromia SLIGHT = 6-15 cells HPF (0-5); Lymphocytes 5 % (21-51); Metamyelocyte 1 % (0-0); Monocytes 2 % (0-10); Myelocyte 2 % (0-0); Neutrophil 87 % (42-75); Platelet Adequacy Comment Platelets Decreased; Total Cell Count 101
[2022-12-31] MEDS: Gabapentin 100 MG CAP PO SCH ×3 (09:04→20:52)
[2022-12-31] MEDS: Insulin Glargine 30 UNITS/0.3 ML VIAL SC SCH (09:04)
[2022-12-31] MEDS: Bumetanide 1 MG TAB PO SCH (09:05)
[2022-12-31] MEDS: guaiFENesin ER 600 MG TAB PO SCH ×2 (09:06→20:51)
[2022-12-31] MEDS ORDERED: predniSONE 20 MG TAB PO SCH (09:32)
[2022-12-31] MEDS ORDERED: predniSONE 50 MG TAB PO SCH (12:00)
[2022-12-31] MEDS: Spironolactone 25 MG TAB PO SCH (20:51)
[2022-12-31] MEDS: Sacubitril 49 MG/Valsartan 51 MG TABLET PO SCH (20:51)
[2022-12-31] MEDS: Tamsulosin HCl 0.4 MG CAP PO SCH (20:51)
[2022-12-31] MEDS: Montelukast Sodium 10 mg Tablet PO SCH (20:51)
[2022-12-31] MEDS: Atorvastatin Calcium 10 MG TAB PO SCH (20:52)
[2022-12-31] MEDS: Melatonin 3 MG TAB PO PRN (20:52)
[2022-12-31] MEDS ORDERED: Non-Formulary Item 1 EACH (Sacubitril/Valsartan [Entresto 97 Mg-103 Mg Tablet] 1 EACH Tab PO SCH (21:00)
[2023-01-01] MEDS: Ipratropium/Albuterol 3 ML NEB NEB SCH ×4 (00:04→18:21)
[2023-01-01] MEDS: Levothyroxine Sodium 50 MCG TAB PO SCH (05:08)
[2023-01-01] MEDS: CEFAZOLIN 2 GM in Sodium Chloride 0.9% 100 ML IVPB SCH ×3 (05:08→22:00)
[2023-01-01 05:30] LABS: Anion Gap 12 mmol/L (10-20); BUN (Urea Nitrogen) 20 mg/dL (8.4-25.7); Calc. Creatinine Clearance 59 mL/min (70-130); Calcium 7.4 mg/dL (7.8-10.44); Carbon Dioxide 25 mmol/L (23-31); Chloride 102 mmol/L (98-107); Estimated GFR 58; Glucose 300 mg/dL (83-110); Sodium 135 mmol/L (136-145)
[2023-01-01] MEDS: HumaLOG 300 UNITS/3 ML VIAL SC PRN (05:51)
[2023-01-01] MEDS: Gabapentin 100 MG CAP PO SCH ×3 (08:14→20:15)
[2023-01-01] MEDS: HYDROcodone/Acetaminophen 5/325 mg Tablet PO PRN ×2 (08:15→20:17)
[2023-01-01] MEDS: Sacubitril 49 MG/Valsartan 51 MG TABLET PO SCH ×2 (08:15→20:17)
[2023-01-01] MEDS: Insulin Glargine 30 UNITS/0.3 ML VIAL SC SCH ×2 (08:16→20:15)
[2023-01-01] MEDS: Bumetanide 1 MG TAB PO SCH (08:16)
[2023-01-01] MEDS: Empagliflozin 10 MG TAB PO SCH (08:16)
[2023-01-01] MEDS: Allopurinol 100 MG TAB PO SCH (08:16)
[2023-01-01] MEDS: guaiFENesin ER 600 MG TAB PO SCH ×2 (08:17→20:14)
[2023-01-01] MEDS ORDERED: FLUTICASONE FUROATE 100 MCG IH SCH (09:00)
[2023-01-01] MEDS ORDERED: Non-Formulary Item 1 EACH (Insulin Aspart [Novolog Flexpen] 100 UNIT/ML Insuln.Pen) SC SCH (11:30)
[2023-01-01] MEDS: HumaLOG 300 UNITS/3 ML VIAL SC SCH ×2 (11:50→16:54)
[2023-01-01] MEDS: methylPREDNISolone Sod Succ 40 MG VIAL IVP SCH ×2 (14:57→22:01)
[2023-01-01] MEDS: Mometasone Furoate 30 PUFF 220 MCG INH SCH (18:24)
[2023-01-01] MEDS: Montelukast Sodium 10 mg Tablet PO SCH (20:15)
[2023-01-01] MEDS: Tamsulosin HCl 0.4 MG CAP PO SCH (20:15)
[2023-01-01] MEDS: Atorvastatin Calcium 10 MG TAB PO SCH (20:15)
[2023-01-01] MEDS: Spironolactone 25 MG TAB PO SCH (20:15)
[2023-01-01] MEDS ORDERED: Non-Formulary Item 1 EACH (Insulin Detemir [Levemir Flexpen] 100 UNIT/ML Insuln.Pen) SC SCH (21:00)
[2023-01-02] MEDS: Ipratropium/Albuterol 3 ML NEB NEB SCH ×4 (00:42→18:35)
[2023-01-02 05:27] LABS: Hemoglobin 11.3 g/dL (14.0-18.0); Mean Corpuscular HGB CONC 30.8 g/dL (32.0-36.0); Mean Corpuscular Hemoglobin 27.4 pg (27.0-31.0); Mean Corpuscular Volume 88.9 fl (78.0-98.0); Mean Platelet Volume 11.9 fL (7.4-10.4); Platelet Count 129 10x3/uL (130-400); Red Blood Cell (RBC) Count 4.13 mill/uL (4.70-6.10); White Blood Cell (WBC) Count 11.8 10x3/uL (4.8-10.8)
[2023-01-02] MEDS: methylPREDNISolone Sod Succ 40 MG VIAL IVP SCH ×3 (05:27→21:27)
[2023-01-02] MEDS: Levothyroxine Sodium 50 MCG TAB PO SCH (05:27)
[2023-01-02] MEDS: CEFAZOLIN 2 GM in Sodium Chloride 0.9% 100 ML IVPB SCH ×3 (05:27→21:26)
[2023-01-02 05:30] LABS: Delete Auto Diff?? YES; Manual Diff?? YES
[2023-01-02] MEDS: HumaLOG 300 UNITS/3 ML VIAL SC PRN ×2 (05:43→18:09)
[2023-01-02 05:48] LABS: Anion Gap 15 mmol/L (10-20); BUN (Urea Nitrogen) 18 mg/dL (8.4-25.7); Calc. Creatinine Clearance 58 mL/min (70-130); Calcium 7.7 mg/dL (7.8-10.44); Carbon Dioxide 24 mmol/L (23-31); Chloride 104 mmol/L (98-107); Estimated GFR 57; Glucose 250 mg/dL (83-110); Potassium 4.3 mmol/L (3.5-5.1); Sodium 139 mmol/L (136-145)
[2023-01-02 08:58] LABS: Band 11 % (5-11); Eosinophils 3 % (0-10); Metamyelocyte 2 % (0-0); Monocytes 1 % (0-10); Reactive Lymphocytes 1 % (0-10)
[2023-01-02 09:00] LABS: Lymphocytes 2 % (21-51); Neutrophil 80 % (42-75)
[2023-01-02 09:02] LABS: Polychromasia SLIGHT = 2-3 cells (100X) (0-2/hpf)
[2023-01-02 09:05] LABS: Platelet Adequacy Comment Appears Decreased
[2023-01-02 09:06] LABS: Ovalocytes SLIGHT = 2-5 cells (100X) (0-1/hpf)
[2023-01-02] MEDS: Empagliflozin 10 MG TAB PO SCH (09:12)
[2023-01-02] MEDS: Bumetanide 1 MG TAB PO SCH (09:12)
[2023-01-02] MEDS: Sacubitril 49 MG/Valsartan 51 MG TABLET PO SCH ×2 (09:12→21:26)
[2023-01-02] MEDS: Insulin Glargine 30 UNITS/0.3 ML VIAL SC SCH ×2 (09:13→21:25)
[2023-01-02] MEDS: Gabapentin 100 MG CAP PO SCH ×3 (09:13→21:25)
[2023-01-02] MEDS: guaiFENesin ER 600 MG TAB PO SCH ×2 (09:14→21:25)
[2023-01-02] MEDS: Allopurinol 100 MG TAB PO SCH (09:14)
[2023-01-02] MEDS: HumaLOG 300 UNITS/3 ML VIAL SC SCH ×3 (09:53→18:07)
[2023-01-02] MEDS: HYDROcodone/Acetaminophen 5/325 mg Tablet PO PRN ×2 (12:06→21:31)
[2023-01-02] MEDS: Mometasone Furoate 30 PUFF 220 MCG INH SCH (18:37)
[2023-01-02] MEDS: Atorvastatin Calcium 10 MG TAB PO SCH (21:25)
[2023-01-02] MEDS: Tamsulosin HCl 0.4 MG CAP PO SCH (21:26)
[2023-01-02] MEDS: Montelukast Sodium 10 mg Tablet PO SCH (21:26)
[2023-01-02] MEDS: Spironolactone 25 MG TAB PO SCH (21:26)
[2023-01-02] MEDS: Melatonin 3 MG TAB PO PRN (21:27)
[2023-01-03] MEDS: Ipratropium/Albuterol 3 ML NEB NEB SCH ×3 (01:34→12:16)
[2023-01-03 04:25] LABS: #Monocytes 0.4 thou/uL (0.11-0.59); #Neutrophils 11.3 thou/uL (1.40-6.50); %Basophils 0.2 % (0.0-1.0); %Lymphocytes 3.6 % (21.0-51.0); %Monocytes 2.9 % (0.0-10.0); %Neutrophils 87.5 % (42.0-75.0); Hemoglobin 11.7 g/dL (14.0-18.0); Mean Corpuscular HGB CONC 30.5 g/dL (32.0-36.0); Mean Corpuscular Hemoglobin 27.6 pg (27.0-31.0); Mean Corpuscular Volume 90.6 fl (78.0-98.0); Red Blood Cell (RBC) Count 4.24 mill/uL (4.70-6.10); White Blood Cell (WBC) Count 12.9 10x3/uL (4.8-10.8)
[2023-01-03 04:27] LABS: Platelet Count 124 10x3/uL (130-400)
[2023-01-03 05:28] LABS: Anion Gap 13 mmol/L (10-20); BUN (Urea Nitrogen) 24 mg/dL (8.4-25.7); Calc. Creatinine Clearance 49 mL/min (70-130); Carbon Dioxide 28 mmol/L (23-31); Chloride 103 mmol/L (98-107); Potassium 4.6 mmol/L (3.5-5.1); Sodium 139 mmol/L (136-145)
[2023-01-03 05:29] LABS: Calcium 9.6 mg/dL (7.8-10.44); Estimated GFR 47; Glucose 309 mg/dL (83-110)
[2023-01-03] MEDS: CEFAZOLIN 2 GM in Sodium Chloride 0.9% 100 ML IVPB SCH ×2 (05:59→14:31)
[2023-01-03] MEDS: Levothyroxine Sodium 50 MCG TAB PO SCH (05:59)
[2023-01-03] MEDS: methylPREDNISolone Sod Succ 40 MG VIAL IVP SCH ×2 (06:00→14:32)
[2023-01-03] MEDS: HumaLOG 300 UNITS/3 ML VIAL SC PRN (06:01)
[2023-01-03] MEDS ORDERED: HumaLOG 300 UNITS/3 ML VIAL SC SCH ×2 (07:45→11:30)
[2023-01-03] MEDS: guaiFENesin ER 600 MG TAB PO SCH (08:24)
[2023-01-03] MEDS: Gabapentin 100 MG CAP PO SCH ×2 (08:24→14:36)
[2023-01-03] MEDS: Sacubitril 49 MG/Valsartan 51 MG TABLET PO SCH (08:25)
[2023-01-03] MEDS: Empagliflozin 10 MG TAB PO SCH (08:25)
[2023-01-03] MEDS: Allopurinol 100 MG TAB PO SCH (08:25)
[2023-01-03] MEDS: Bumetanide 1 MG TAB PO SCH (08:25)
[2023-01-03] MEDS: HYDROcodone/Acetaminophen 5/325 mg Tablet PO PRN (08:29)
[2023-01-03] MEDS ORDERED: Insulin Glargine 30 UNITS/0.3 ML VIAL SC SCH (09:00)
[2023-01-03] MEDS ORDERED: Furosemide 20 MG/2 ML VIAL SLOW IVP SCH (09:15)
[2023-01-03 11:34] VITALS: BP 134/70; TEMP 97.4
[2023-01-03] MEDS: HumaLOG 300 UNITS/3 ML VIAL SC SCH (11:49)
== END 2023-01-03 15:30 | DRG 871 ==
LOC: ERS 03:20 → ERHOLD 10:05 → 2NO 13:47
PROVIDERS: ADMIT Internal Medicine; ATTEND Internal Medicine Geriatric Medicine
PROC: 4A133R1 Monitoring of Arterial Saturation, Peripheral, Percutaneous Approach (ICD-10-PCS; 2022-12-23)
PROC: 02HV33Z Insertion of Infusion Device into Superior Vena Cava, Percutaneous Approach (ICD-10-PCS; principal; 2022-12-31)
PROC: B5181ZA Fluoroscopy of Superior Vena Cava using Low Osmolar Contrast, Guidance (ICD-10-PCS; 2022-12-31)
PROC: B548ZZA Ultrasonography of Superior Vena Cava, Guidance (ICD-10-PCS; 2022-12-31)
DX: R78.81 Bacteremia (principal); J96.01 Acute respiratory failure with hypoxia; I13.0 Hypertensive heart and chronic kidney disease with heart failure and stage 1 through stage 4 chronic kidney disease, or unspecified chronic kidney disease; J45.901 Unspecified asthma with (acute) exacerbation; N17.9 Acute kidney failure, unspecified; J44.1 Chronic obstructive pulmonary disease with (acute) exacerbation; I50.42 Chronic combined systolic (congestive) and diastolic (congestive) heart failure; R91.8 Other nonspecific abnormal finding of lung field; Z66 Do not resuscitate; E78.5 Hyperlipidemia, unspecified; I25.10 Atherosclerotic heart disease of native coronary artery without angina pectoris; E03.9 Hypothyroidism, unspecified; E11.22 Type 2 diabetes mellitus with diabetic chronic kidney disease; M10.9 Gout, unspecified; I48.91 Unspecified atrial fibrillation; N18.30 Chronic kidney disease, stage 3 unspecified; D63.1 Anemia in chronic kidney disease; Z91.012 Allergy to eggs; Z79.890 Hormone replacement therapy; Z98.890 Other specified postprocedural states; Z79.4 Long term (current) use of insulin; Z95.1 Presence of aortocoronary bypass graft; Z79.51 Long term (current) use of inhaled steroids; Z79.899 Other long term (current) drug therapy; Z95.0 Presence of cardiac pacemaker; Z82.49 Family history of ischemic heart disease and other diseases of the circulatory system; Z20.822 Contact with and (suspected) exposure to COVID-19
CPT/HCPCS: 36415; 36416; 36569; 36600; 71045; 71275; 80048; 80053; 81001; 82550; 82553; 82805; 83605; 83690; 83735; 83880; 84484; 85025; 85379; 87040; 87070; 87077; 87149; 87186; 87205; 93005; 93010; 93306; 94640; 94644; 94667; 94668; 94760; 96361; 96365; 96366; 96367; 96375; C1751; C9113; J0282; J0696; J1100; J1650; J1815; J1940; J1956; J2920; J3475; J3490; J7070; J7512; J7611; J7620; Q9967

== ENCOUNTER 2023-02-06 12:30 | Outpatient (CLI) | payer MEDICARE | END 2023-02-06 12:31 | disposition home or self-care (01) | LOC: PET 12:30 | PROVIDERS: ATTEND Family Medicine | DX: R91.8 Other nonspecific abnormal finding of lung field (principal) | CPT/HCPCS: 78815; A9552 ==

== ENCOUNTER 2023-03-13 10:47 | Outpatient (CLI) | payer MEDICARE, OTHER ==
[2023-03-13] MEDS ORDERED: Magnevist 469MG/ML 20 ML VIAL ONE (16:08)
== END 2023-03-13 10:48 | disposition home or self-care (01) ==
LOC: MRI 10:47
PROVIDERS: ATTEND Family Medicine
DX: R22.31 Localized swelling, mass and lump, right upper limb (principal)
CPT/HCPCS: A9579

== ENCOUNTER 2023-03-27 12:23 | Outpatient (CLI) | payer MEDICARE, OTHER ==
[2023-03-27 13:22] LABS: Anion Gap 20 mmol/L (10-20); BUN (Urea Nitrogen) 60 mg/dL (8.4-25.7); Calc. Creatinine Clearance 0 mL/min (70-130); Calcium 9.2 mg/dL (7.8-10.44); Carbon Dioxide 26 mmol/L (23-31); Chloride 99 mmol/L (98-107); Estimated GFR 19; Glucose 145 mg/dL (83-110); Potassium 5.5 mmol/L (3.5-5.1); Sodium 139 mmol/L (136-145)
[2023-03-27 13:23] LABS: Hematocrit 37.2 % (38.8-50.0); Hemoglobin 12.1 g/dL (13.5-17.5); Mean Corpuscular HGB CONC 32.5 g/dL (32.0-36.0); Mean Corpuscular Volume 86.1 fl (81.2-95.1); RBC Distribution Width 17.1 % (11.5-14.5); Red Blood Cell (RBC) Count 4.32 10x6/uL (4.32-5.72); White Blood Cell (WBC) Count 9.2 10x3/uL (3.5-10.5)
[2023-03-27 13:24] LABS: Mean Platelet Volume 11.5 fl (7.4-10.4); Platelet Count 145 10x3/uL (150-450)
== END 2023-03-27 12:24 | disposition home or self-care (01) ==
LOC: LABBT 12:23
PROVIDERS: ATTEND Thoracic Surgery (Cardiothoracic Vascular Surgery)
DX: Z01.818 Encounter for other preprocedural examination (principal); R59.1 Generalized enlarged lymph nodes
CPT/HCPCS: 80048; 85027; 93005; 93010

== ENCOUNTER 2023-03-28 05:37 | Day surgery (SDC) | payer MEDICARE ==
[2023-03-27 12:50] VITALS: BMI 31.8
[2023-03-28] MEDS ORDERED: fentaNYL 50 mcg/mL 1 mL Vial ONE (06:23)
[2023-03-28] MEDS ORDERED: Midazolam HCl 2 mg/2 ml Vial ONE (06:23)
[2023-03-28] MEDS ORDERED: Bupivacaine PF 0.5% 30 ML VIAL ONE (06:38)
[2023-03-28] MEDS ORDERED: Dexamethasone 4 mg/ml Vial ONE (06:38)
[2023-03-28] MEDS ORDERED: EPINEPHrine 1 MG/ML AMP ONE (06:38)
[2023-03-28] MEDS ORDERED: Sodium Chloride 0.9% 100 ML ONE (07:07)
[2023-03-28] MEDS ORDERED: CEFAZOLIN 2 GM VIAL ONE (07:07)
[2023-03-28] MEDS ORDERED: Calcium Chloride 1 GM/10 ML Abboject SYRINGE ONE (07:16)
[2023-03-28] MEDS ORDERED: PHENYLEPHRINE-NS 100 MCG/ML 10 ML SYRINGE ONE (07:16)
[2023-03-28] MEDS ORDERED: PROPOFOL 200 MG/20 ML VIAL ONE (07:16)
[2023-03-28] MEDS ORDERED: ePHEDrine Sulfate 50 MG/10 ML VIAL ONE (07:16)
== END 2023-03-28 11:55 ==
LOC: SDC 05:37
PROVIDERS: ATTEND Thoracic Surgery (Cardiothoracic Vascular Surgery)
PROC: 07B10ZX Excision of Right Neck Lymphatic, Open Approach, Diagnostic (ICD-10-PCS; principal; 2023-03-28)
DX: R59.1 Generalized enlarged lymph nodes (principal); I48.91 Unspecified atrial fibrillation; I11.0 Hypertensive heart disease with heart failure; I50.9 Heart failure, unspecified; M10.9 Gout, unspecified; E29.1 Testicular hypofunction; E11.9 Type 2 diabetes mellitus without complications; E03.9 Hypothyroidism, unspecified; I25.10 Atherosclerotic heart disease of native coronary artery without angina pectoris; E78.5 Hyperlipidemia, unspecified; I88.9 Nonspecific lymphadenitis, unspecified; Z79.82 Long term (current) use of aspirin; Z79.899 Other long term (current) drug therapy
CPT/HCPCS: 36416; 88305; 88312; J0171; J1100; J2250; J2704; J3010; J3490; S0020

== ENCOUNTER 2024-02-07 12:32 | Outpatient (CLI) | payer MEDICARE, OTHER ==
[2024-02-07] MEDS ORDERED: Magnevist 469MG/ML 20 ML VIAL ONE (14:32)
== END 2024-02-07 12:33 | disposition home or self-care (01) ==
LOC: MRI 12:32
PROVIDERS: ATTEND Physician Assistant Medical
DX: D86.9 Sarcoidosis, unspecified (principal); R16.1 Splenomegaly, not elsewhere classified; D64.9 Anemia, unspecified; D69.6 Thrombocytopenia, unspecified; N28.1 Cyst of kidney, acquired; D35.02 Benign neoplasm of left adrenal gland
CPT/HCPCS: 74183; A9579

== ENCOUNTER 2024-03-02 15:27 | Emergency (ER) | payer MEDICARE, OTHER ==
[2024-03-02 17:36] LABS: #Basophils 0.05 10x3/uL (0.0-0.2); %Basophils 0.6 % (0.0-1.0); %Eosinophils 2.8 % (0.0-10.0); %Lymphocytes 9.7 % (21.0-51.0); %Monocytes 6.6 % (0.0-10.0); %Neutrophils 79.2 % (42.0-75.0); Hematocrit 38.2 % (42.0-52.0); Hemoglobin 12.2 g/dL (14.0-18.0); Mean Corpuscular HGB CONC 31.9 g/dL (32.0-36.0); Mean Corpuscular Hemoglobin 27.6 pg (27.0-31.0); Mean Corpuscular Volume 86.4 fL (78.0-98.0); Mean Platelet Volume 12.1 fL (7.4-10.4); Platelet Count 90 10x3/uL (130-400); RBC Distribution Width 15.9 % (11.5-14.5); Red Blood Cell (RBC) Count 4.42 mill/uL (4.70-6.10)
[2024-03-02 17:59] LABS: ALT (SGPT) 7 U/L (8-55); AST (SGOT) 8 U/L (5-34); Albumin 3.6 g/dL (3.4-4.8); Alkaline Phosphatase 51 U/L (40-110); Anion Gap 12 mmol/L (10-20); BUN (Urea Nitrogen) 30 mg/dL (8.4-25.7); Bilirubin, Total 0.4 mg/dL (0.2-1.2); Calc. Creatinine Clearance 0 mL/min (70-130); Calcium 11.2 mg/dL (7.8-10.44); Carbon Dioxide 28 mmol/L (23-31); Chloride 105 mmol/L (98-107); Estimated GFR 31; Globulin 2.5 g/dL (2.4-3.5); Glucose 91 mg/dL (83-110); Magnesium 2.3 mg/dL (1.6-2.6); Potassium 4.1 mmol/L (3.5-5.1); Protein, Total 6.1 g/dL (5.8-8.1); Sodium 141 mmol/L (136-145)
[2024-03-02 18:00] LABS: Phosphorus 2.9 mg/dL (2.3-4.7)
== END 2024-03-02 21:58 | disposition home or self-care (01) ==
LOC: ERS 15:27
DX: I13.0 Hypertensive heart and chronic kidney disease with heart failure and stage 1 through stage 4 chronic kidney disease, or unspecified chronic kidney disease (principal); E11.22 Type 2 diabetes mellitus with diabetic chronic kidney disease; N18.9 Chronic kidney disease, unspecified; I50.9 Heart failure, unspecified; I48.91 Unspecified atrial fibrillation; I25.10 Atherosclerotic heart disease of native coronary artery without angina pectoris; Z95.0 Presence of cardiac pacemaker
CPT/HCPCS: 36415; 80053; 83735; 84100; 84484; 85025; 93005; 99283

== ENCOUNTER 2024-03-12 09:15 | Outpatient (CLI) | payer MEDICARE, OTHER ==
[2024-03-12] MEDS ORDERED: Heparin 1,000 UNITS/ML VIAL ONE (09:32)
== END 2024-03-12 09:16 | disposition home or self-care (01) ==
LOC: NM 09:15
PROVIDERS: ATTEND Physician Assistant Medical
DX: R16.1 Splenomegaly, not elsewhere classified (principal); J90 Pleural effusion, not elsewhere classified; I51.7 Cardiomegaly; I25.10 Atherosclerotic heart disease of native coronary artery without angina pectoris; D35.02 Benign neoplasm of left adrenal gland; N28.1 Cyst of kidney, acquired; M47.819 Spondylosis without myelopathy or radiculopathy, site unspecified; N62 Hypertrophy of breast
CPT/HCPCS: 78803; A9560; J1644; A9503

== ENCOUNTER 2025-05-25 10:31 | Outpatient (CLI) | payer MEDICARE | END 2025-05-25 10:32 | disposition home or self-care (01) | LOC: BICMAMMO 10:31 | PROVIDERS: ATTEND Family Medicine | DX: Z51.81 Encounter for therapeutic drug level monitoring (principal); Z79.52 Long term (current) use of systemic steroids; M85.851 Other specified disorders of bone density and structure, right thigh; M85.852 Other specified disorders of bone density and structure, left thigh | CPT/HCPCS: 77080 ==